=== PATIENT | female | born 1955 | race Caucasian/White ===

== ENCOUNTER → 2017-11-10 | Outpatient (CLI) | payer OTHER ==
[2017-11-10 11:17] LABS: BLOOD UREA NITROGEN 18 mg/dl (7-18); CALCIUM 8.9 mg/dl (8.5-10.1); CARBON DIOXIDE 27 mmol/L (21-32); CREATININE 0.88 mg/dl (0.60-1.20); GLUCOSE 77 mg/dl (70-99); POTASSIUM 3.9 mmol/L (3.5-5.1); SODIUM 142 mmol/L (136-145)
== END ==
LOC: C.LABUPNIT 07:52
PROVIDERS: ATTEND Nurse Practitioner Family
DX: E08.8 Diabetes mellitus due to underlying condition with unspecified complications (principal)

== ENCOUNTER 2022-05-07 10:48 | Inpatient (IN) ==
[2022-05-07] MEDS ORDERED: VANCOMYCIN CONSULT ACTIVE PRN (11:01)
[2022-05-07] MEDS ORDERED: VANCOMYCIN HCL 2,500 MG in SODIUM CHLORIDE 0.9% 500 ML IV STA (11:01)
[2022-05-07] MEDS ORDERED: CEFEPIME 2,000 MG/20 ML VIAL IV STA (11:01)
[2022-05-07] MEDS ORDERED: SODIUM BICARB 8.4% INJ 50 MEQ/50 ML SYR IV STA (11:08)
[2022-05-07] MEDS ORDERED: NovoLIN-R INSULIN PER UNIT CHARGE IV STA (11:08)
[2022-05-07] MEDS ORDERED: DEXTROSE 50% 50 ML SYRINGE IV ONE (11:08)
[2022-05-07] MEDS ORDERED: ALBUT/IPRATROP 3MG/0.5MG NEB 3 ML VIAL NEB STA (11:08)
[2022-05-07] MEDS ORDERED: SODIUM CHLORIDE 0.9% 1000ML 1,000 ML IV SCH (11:15)
[2022-05-07 11:17] LABS: iSTAT Creatinine 3.1 mg/dl (0.6-1.3); iSTAT Hemoglobin 20.7 g/dl (12.0-16.0); iSTAT Ionized Calcium 1.06 mmol/l (1.12-1.32); iSTAT Potassium 8.4 mmol/L (3.3-5.0)
--- NOTE | 2022-05-07 11:38 | Emergency Department Note ---
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 (Dextrose 50% 50 Ml Syringe) 50 ml IV NOW ONE Stop: 05/07/22 11:09 Last Admin: 05/07/22 11:57 Dose: 50 ml Documented By: FATUMA Sodium Chloride (Nss 1000ml) 1,000 mls @ 999 mls/hr IV .Q1H1M AIDA Stop: 05/07/22 12:15 Last Infusion: 05/07/22 12:18 Dose: 0 mls/hr Documented By: Admin: 05/07/22 11:15 Dose: 999 mls/hr Documented By: HG Sodium Chloride (Nss 1000ml) 1,000 mls @ 999 mls/hr IV .Q1H1M AIDA Stop: 05/07/22 13:15 Last Infusion: 05/07/22 13:14 Dose: 0 mls/hr Documented By: Admin: 05/07/22 12:18 Dose: 999 mls/hr Documented By: Infusion: 05/07/22 12:18 Dose: 999 mls/hr Documented By: Admin: 05/07/22 11:55 Dose: 999 mls/hr Documented By: HG Cefepime HCl (Maxipime) 2,000 mg in 20 mls @ 5 mls/min IV NOW STA; Protocol Stop: 05/07/22 11:04 Last Admin: 05/07/22 11:55 Dose: 5 mls/min Documented By: HG Vancomycin HCl 2,500 mg/ (Sodium Chloride) 550 mls @ 200 mls/hr IV NOW STA Stop: 05/07/22 13:30 Last Admin: 05/07/22 12:01 Dose: 200 mls/hr Documented By: FATUMA Calcium Gluconate () 1,000 mg in 60 mls @ 240 mls/hr IV Q15M [facility] Stop: 05/07/22 11:44 Last Infusion: 05/07/22 13:04 Dose: 0 mls/hr Documented By: Admin: 05/07/22 12:06 Dose: 240 mls/hr Documented By: Infusion: 05/07/22 12:06 Dose: 240 mls/hr Documented By: Admin: 05/07/22 11:54 Dose: 240 mls/hr Documented By: HG Acetaminophen (Ofirmev) 1,000 mg in 100 mls @ 400 mls/hr IV NOW STA Stop: 05/07/22 13:10 Last Infusion: 05/07/22 13:19 Dose: 0 mls/hr Documented By: Admin: 05/07/22 13:04 Dose: 400 mls/hr Documented By: DINORAH Insulin Human Regular (Novolin-R Insulin Per Unit Charge) 10 units IV NOW STA Stop: 05/07/22 11:09 Last Admin: 05/07/22 12:01 Dose: 10 units Documented By: FATUMA Co-signed By: DINORAH Norepinephrine Bitartrate (Norepinephrine/D5w 4 Mg/250 Ml) Confirm Administered Dose 4 mg IV .STK-MED ONE Stop: 05/07/22 13:08 Last Admin: 05/07/22 13:12 Dose: Not Given Documented By: FATUMA Sodium Bicarbonate (Sodium Bicarb 8.4% Inj 50 Meq/50 Ml Syr) 50 meq IV NOW STA Stop: 05/07/22 11:09 Last Admin: 05/07/22 11:54 Dose: 50 meq Documented By: FATUMA Imaging Data Radiologist's Impression: Chest X-Ray 05/07/22 11:01 XR chest 1V portable CLINICAL HISTORY: Sepsis. COMPARISON STUDY: No previous studies for comparison. FINDINGS: Tip of right internal jugular central venous catheter projects over the right atrium. Lung volumes are diminished. Vascular crowding is noted hypoventilatory study. Note is made of cardiomegaly. Gaseous distention of the stomach is noted. IMPRESSION: 1. No pneumothorax. Tip of right internal jugular central venous catheter projects over the right atrium. 2. Low lung volumes with left basilar opacity which could reflect atelectasis or consolidation. Radiographic follow up is recommended. 3. Gaseous distention of the stomach. ACT 112: Negative or not required by law. Electronically signed by: Mars Coles M.D. 05/07/2022 12:59 PM Discharge Plan Visit Data Chief Complaint: Altered Mental Status Stated Complaint: AMS ED Provider: [facility] Discharge Problem: AMS (altered mental status), Nausea vomiting and diarrhea, SOPHIE (acute kidney injury), Hyperkalemia Forms Stand Alone Forms: [facility] [employer] Prescriptions Prescriptions: No Action amantadine HCl 100 mg Tablet 100 mg PO BID atorvastatin 40 mg Tablet 60 mg PO HS acetaminophen 325 mg Tablet 650 mg PO Q6H PRN (Reason: Pain) aripiprazole [Abilify] 10 mg Tablet 5 mg PO QAM Saccharomyces boulardii [Florastor] 250 mg Capsule 250 mg PO BID hydrocodone-acetaminophen 5-325 mg Tablet 1 tab PO Q12 PRN (Reason: Pain) magnesium hydroxide [Milk of Magnesia] 400 mg/5 mL Suspension 30 ml PO DAILY PRN (Reason: Constipation) docusate sodium 100 mg Capsule 100 mg PO DAILY duloxetine 60 mg Capsule,Delayed Release(Dr/Ec) 60 mg PO DAILY levothyroxine 25 mcg Tablet 25 mcg PO DAILY sertraline 100 mg Tablet 100 mg PO DAILY trazodone 50 mg Tablet 50 mg PO HS ergocalciferol (vitamin D2) 50,000 unit Tablet 50,000 unit PO Q7D lorazepam 0.5 mg Tablet 0.5 mg PO BID potassium chloride 20 mEq Tablet Extended Release 20 meq PO BID gabapentin 100 mg Capsule 100 mg PO TID bisacodyl 10 mg Suppository 10 mg SD DAILY PRN (Reason: Constipation) sodium phosphates 19-7 gram/118 mL Enema 118 ml SD DAILY PRN (Reason: Constipation) ondansetron 4 mg Tablet,Disintegrating 4 mg PO Q6H PRN (Reason: Nausea And Vomiting) Referrals Referrals: [facility] [Primary Care Provider] - Procedures ABG Interpretation ABG Interpretation 1: ABG Results: Interpretation: metabolic acidosis Central Line Placement Right IJ: Time Out Performed: Yes Patient Placed on Monitor/Pulse Ox: Yes MD Prep: mask, gown and gloves Central Line Prep: Chlorhexidine scrub Local Anesthetic: lidocaine 1% Amount of anesthesia used (mL): 5 Ultrasound Used for Placement: Yes Central Line Lumen Inserted: triple Post Procedure: sutured in place, good blood return, all ports aspirated, flushed, capped and sterile dressing applied Post Procedure X-Ray: tip of catheter in good position and no pneumothorax seen Patient Tolerated Procedure: well and no complications Complications: none
[2022-05-07] MEDS: CALCIUM GLUCONATE 1,000 MG/60 ML BAG IV SCH ×2 (11:54→12:06)
[2022-05-07] MEDS: SODIUM CHLORIDE 0.9% 1000ML 1,000 ML IV SCH ×2 (11:55→12:18)
[2022-05-07 12:16] LABS: HCO3 ABG 14 mmol/L (19-24); Oxygen Saturation ABG 97.3 % (90-95); PCO2 ABG 23 mmHg (35-46); PO2 ABG 86 mmHg (80-95); pH ABG 7.39 (7.35-7.45)
[2022-05-07 12:27] LABS: Allen Test Pos (Pos)
[2022-05-07 12:27] LABS: Hematocrit (blood only) 50.7 % (37.0-47.0); Hemoglobin 17.2 g/dl (12.0-16.0); Mean Corpuscular Hemoglobin 30.6 pg (25.0-34.0); Mean Corpuscular Hgb Conc 33.9 g/dL (32.0-36.0); Mean Corpuscular Volume 90.1 fL (80.0-100.0); Mean Platelet Volume 11.6 fL (9.4-12.4); Platelet Count 266 K/uL (130-400); RDW Coefficient of Variation 14.3 % (11.5-14.5); RDW Standard Deviation 47.6 fL (36.4-46.3); Red Blood Count 5.63 M/uL (4.20-5.40); White Blood Count 9.33 K/ul (4.8-10.8)
[2022-05-07 12:48] LABS: Basophils # (auto) 0.03 K/uL (0-0.2); Basophils % (auto) 0.3 %; Eosinophils # (auto) 0.01 K/uL (0-0.50); Eosinophils % (auto) 0.1 %; Immature Granulocytes # (auto) 0.04 K/uL (0.01-0.20); Immature Granulocytes % (auto) 0.4 %; Lymphocytes # (auto) 1.05 K/uL (1.2-3.4); Lymphocytes % (auto) 11.3 %; Monocytes # (auto) 1.79 K/uL (0.11-0.59); Monocytes % (auto) 19.2 %; Neutrophils # (auto) 6.41 K/uL (1.40-6.50); Neutrophils % (auto) 68.7 %
[2022-05-07 12:55] LABS: Albumin Level 3.9 gm/dl (3.4-5.0); Bilirubin Direct 0.1 mg/dl (0-0.2); Bilirubin,Total 0.6 mg/dl (0.2-1.0); Magnesium 1.7 mg/dl (1.7-2.4); Potassium 3.6 mmol/L (3.5-5.1)
[2022-05-07] MEDS ORDERED: ACETAMINOPHEN 1,000 MG/100 ML VIAL IV STA (12:56)
--- NOTE | 2022-05-07 13:00 | XRay Report ---
XR chest 1V portable CLINICAL HISTORY: Sepsis. COMPARISON STUDY: No previous studies for comparison. FINDINGS: Tip of right internal jugular central venous catheter projects over the right atrium. Lung volumes are diminished. Vascular crowding is noted hypoventilatory study. Note is made of cardiomegal y. Gaseous distention of the stomach is noted. IMPRESSION: 1. No pneumothorax. Tip of right internal jugular central venous catheter projects over the right atr ium. 2. Low lung volumes with left basilar opacity which could reflect atelectasis or consolidation. Radio graphic follow up is recommended. 3. Gaseous distention of the stomach. ACT 112: Negative or not required by law. Electronically signed by: Mars Coles M.D. 05/07/2022 12:59 PM
[2022-05-07 13:01] LABS: BUN Creatinine Ratio 11.2 (10-20); Creatinine Clr Calc Pharmacy 21.1 ml/min; Est GFR (African American) 16.7 ml/min; Est GFR (Non-African American) 14.4 ml/min; Total Protein 7.1 gm/dl (6.0-8.3)
[2022-05-07] MEDS ORDERED: NOREPINEPHRINE/D5W 4 MG/250 ML IV ONE (13:07)
[2022-05-07] MEDS ORDERED: STAT IV Infusion **Titration per Protocol STA (13:07)
[2022-05-07] MEDS: NOREPINEPHRINE/D5W 4 MG/250 ML PLCT IV SCH (13:12)
[2022-05-07 13:17] LABS: iSTAT Creatinine 2.7 mg/dl (0.6-1.3); iSTAT Ionized Calcium 1.17 mmol/l (1.12-1.32); iSTAT Potassium 3.2 mmol/L (3.3-5.0)
[2022-05-07 13:37] LABS: Adenovirus PCR Not Detected (NotDetected); Bordetella parapertussis PCR Not Detected (NotDetected); Bordetella pertussis PCR Not Detected (NotDetected); Chlamydia pneumoniae PCR Not Detected (NotDetected); Coronavirus 229E PCR Not Detected (NotDetected); Coronavirus HKU1 PCR Not Detected (NotDetected); Coronavirus NL63 PCR Not Detected (NotDetected); Coronavirus OC43PCR Not Detected (NotDetected); Human Metapneumovirus PCR Not Detected (NotDetected); Influenza A PCR Not Detected (NotDetected); Influenza B PCR Not Detected (NotDetected); Mycoplasma pneumoniae PCR Not Detected (NotDetected); Parainfluenza Virus 1 PCR Not Detected (NotDetected); Parainfluenza Virus 2 PCR Not Detected (NotDetected); Parainfluenza Virus 3 PCR Not Detected (NotDetected); Parainfluenza Virus 4 PCR Not Detected (NotDetected); Respiratory Syncytial VirusPCR Not Detected (NotDetected); Rhinovirus/Enterovirus PCR Not Detected (NotDetected)
[2022-05-07 13:42] LABS: Coronavirus CoV-2 (COVID19)PCR DETECTED (NotDetected)
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
[2022-05-07] MEDS ORDERED: NORMOSOL-R 1,000 ML IV ONE ×2 (14:39→19:04)
--- NOTE | 2022-05-07 15:13 | Critical Care Consultation ---
Date of Consultation May 07, 2022 Assessment & Plan (1) Dehydration, severe: Reason Critically Ill: 67-year-old female with history of traumatic brain injury who presents with concerns for sepsis/septic shock and COVID-19 infection PLAN: Neuro: History traumatic brain injury -Continue amantadine 100 mg twice daily, Abilify 5 mg every morning, duloxetine 60 mg daily, gabapentin 100 mg 3 times daily, Strattera lean 100 mg daily Resp: COVID-19 infection -Wean supplemental oxygen as required CV: Tachycardia, hypotension, severe volume depletion -Severe dehydration secondary to nausea vomiting and diarrhea Fluids/Renal: Acute kidney injury -Normosol at 100 mL/h -Repeat labs pending, insert Gerardo to measure urine output ID: Broad-spectrum antibiotics started in emergency department -Blood cultures have been obtained, urine culture has not been obtained at this time -Vancomycin consult ordered, given cefepime in emergency department. -This appears to be related to volume loss secondary to gastroenteritis, lactic acidosis significantly improving gastroenteritis can be secondary to COVID-19 as well GI/Nutrition: Hyperlipidemia -Atorvastatin 60 mg nightly High-grade small bowel obstruction with transition point -NG tube decompression will consult general surgery -Son denies abdominal surgical history. Heme: Hemoconcentration History of DVT recorded in prior records, no anticoagulation medications noted on home meds DVT prophylaxis: DVT prophylaxis with heparin 5000 thrice daily Endocrine: ICU hyperglycemia protocol Presumed hypothyroidism secondary to Home medication list -Continue levothyroxine 25 mcg daily Vascular access: Right internal jugular placed in emergency department Code Status: Full code -Discussed wishes with patient's son:Sukhjinder Davis via telephone Disposition: ICU (2) SOPHIE (acute kidney injury): (3) Traumatic brain injury: (4) Diabetes mellitus: (5) COVID-19 virus infection: (6) Septic shock: Supervising Physician Co-Signing Physician Notes I have personally spent 60 minutes of critical care time in the direct management of this patient. This is a life/limb threatening event. This includes time spent evaluating patient, direct bedside care, chart review, placing orders, interpretation of diagnostic studies, discussion with consultants, patient, and/or family members regarding treatment decisions, as well as other required patient management activities. This time is exclusive of all separately billable procedures, and teaching time and separate from and in addition to any other critical care service time. History of Present Illness Reason for Consultation: Concern for septic shock with multisystem organ failure Attending Physician: Mary Kate Hamilton, History of Present Illness History is largely obtained from prior records and bedside providers secondary to cognitive deficits secondary to prior traumatic brain injury. Patient resides in a nursing care facility. Patient was reportedly having, nausea vomiting diarrhea for the past several days at her nursing facility and was found to have altered mental status this morning. She was transported to [facility] emergency department where the patient's initial presentation was concerning for shock and hyperkalemia. She has been volume expanded with 3 L of normal saline and started on norepinephrine and initial laboratory results were obtained. She had an elevated lactic acidosis which has subsequently decreased from 4-2.5. During my evaluation we attempted to discontinue the vasoactive medication however she became hypotensive again and had decreased awareness so the vasoactive's were continued albeit at a lower rate. We will also give additional IV fluid at this time. During my evaluation patient was oriented to self, largely is able to answer with yes or no questions and she was not able to expand on descriptions. She denied chest pain shortness of breath admitted to nausea and vomiting was not able to quantify the vomiting. She denied abdominal pain however she has a tympanic exam. Nursing staff she reported that the patient had passed loose stools earlier Allergies Allergy/AdvReac Type Severity Reaction Status Date / Time aspirin Allergy Severe Unknown Verified 07/09/20 13:38 Home Medications Medication Instructions Recorded Confirmed Type Saccharomyces boulardii 250 mg 250 mg PO BID 07/03/20 05/07/22 History capsule (Florastor) acetaminophen 325 mg tablet 650 mg PO Q6H PRN Pain 07/03/20 05/07/22 History amantadine HCl 100 mg tablet 100 mg PO BID 07/03/20 05/07/22 History aripiprazole 10 mg tablet (Abilify) 5 mg PO QAM 07/03/20 05/07/22 History atorvastatin 40 mg tablet 60 mg PO HS 07/03/20 05/07/22 History hydrocodone 5 mg-acetaminophen 325 1 tab PO Q12 PRN Pain 07/03/20 05/07/22 History mg tablet magnesium hydroxide 400 mg/5 mL 30 ml PO DAILY PRN Constipation 07/03/20 05/07/22 History oral suspension (Milk of Magnesia) bisacodyl 10 mg rectal suppository 10 mg DC DAILY PRN Constipation 05/07/22 05/07/22 History docusate sodium 100 mg capsule 100 mg PO DAILY 05/07/22 05/07/22 History duloxetine 60 mg capsule,delayed 60 mg PO DAILY 05/07/22 05/07/22 History release ergocalciferol (vitamin D2) 50,000 50,000 unit PO Q7D 05/07/22 05/07/22 History unit tablet gabapentin 100 mg capsule 100 mg PO TID 05/07/22 05/07/22 History levothyroxine 25 mcg tablet 25 mcg PO DAILY 05/07/22 05/07/22 History lorazepam 0.5 mg tablet 0.5 mg PO BID 05/07/22 05/07/22 History ondansetron 4 mg disintegrating 4 mg PO Q6H PRN Nausea And Vomiting 05/07/22 05/07/22 History tablet potassium chloride 20 mEq 20 meq PO BID 05/07/22 05/07/22 History tablet,extended release sertraline 100 mg tablet 100 mg PO DAILY 05/07/22 05/07/22 History sodium phosphates 19 gram-7 118 ml DC DAILY PRN Constipation 05/07/22 05/07/22 History gram/118 mL enema trazodone 50 mg tablet 50 mg PO HS 05/07/22 05/07/22 History Patient History Medical History Constipation Dermatitis Diabetes mellitus DVT (deep venous thrombosis) unspecified lower extremity 2018 Generalized anxiety disorder Hyperlipemia Hypertension Insomnia Intermittent explosive disorder Morbid obesity Psychosis Traumatic brain injury Surgical History No history of previous surgery Social History Smoking Status: Unknown if ever smoked Preferred Language: Chinese Current Living Situation: Personal Care Facility Current Living Situation Comment: [facility] resident Feels Safe at Home: Yes Review of Systems Review of Systems: Unable to obtain secondary to cognitive status Physical Exam Physical Exam: General: Alert. Answering questions appropriately Skin: Warm, dry, capillary refill less than 3 seconds Head: Atraumatic Ears, nose, mouth and throat: airway patent Cardiovascular: Normal peripheral perfusion Respiratory: no respiratory distress Gastrointestinal: Mild distention, mild tympany, no abdominal pain with palpation, no guarding no rebound, negative Rosvigs. Negative [place] Musculoskeletal: No deformity Results & Data Results & Data ([facility]) Vital Signs (Past 12 Hours) Vital Signs Temp Pulse Resp BP Pulse Ox O2 Del Method O2 Flow Rate 05/07/22 14:35 125 H 25 H 96 Nasal Cannula 2 05/07/22 14:35 114/77 05/07/22 14:30 126 H 24 95 Nasal Cannula 2 05/07/22 14:30 114/71 05/07/22 14:25 125 H 22 95 Nasal Cannula 2 05/07/22 14:25 125/70 05/07/22 14:20 124 H 28 H 95 Nasal Cannula 2 05/07/22 14:20 126/78 05/07/22 14:15 127 H 20 95 Nasal Cannula 2 05/07/22 14:15 130/71 05/07/22 14:10 128 H 30 H 95 Nasal Cannula 2 05/07/22 14:10 107/73 05/07/22 14:05 125 H 30 H 95 Nasal Cannula 2 05/07/22 14:05 127/71 05/07/22 14:00 126 H 17 93 Nasal Cannula 2 05/07/22 14:00 127/77 05/07/22 13:55 127 H 22 94 Nasal Cannula 2 05/07/22 13:55 119/79 05/07/22 13:50 126 H 28 H 94 Nasal Cannula 2 05/07/22 13:50 127/74 05/07/22 13:45 126 H 27 H 94 Nasal Cannula 2 05/07/22 13:45 118/90 05/07/22 13:40 125 H 21 93 Nasal Cannula 2 05/07/22 13:40 120/64 05/07/22 13:46 37.0 C 05/07/22 13:35 122 H 30 H 93 Nasal Cannula 2 05/07/22 13:35 113/63 05/07/22 13:30 121 H 32 H 95 Nasal Cannula 2 05/07/22 13:30 112/62 05/07/22 13:25 121 H 28 H 94 Nasal Cannula 2 05/07/22 13:25 100/60 05/07/22 13:20 119 H 29 H 93 Nasal Cannula 2 05/07/22 13:20 96/60 L 05/07/22 13:20 96/60 L 05/07/22 13:18 117 H 26 H 92 Nasal Cannula 2 05/07/22 13:17 116 H 30 H 92 Nasal Cannula 2 05/07/22 13:17 98/60 L 05/07/22 13:16 115 H 30 H 93 Nasal Cannula 2 05/07/22 13:14 115 H 47 H 94 Nasal Cannula 2 05/07/22 13:14 78/55 L 05/07/22 13:10 116 H 31 H 93 Nasal Cannula 2 05/07/22 13:10 83/53 L 05/07/22 13:05 117 H 35 H 94 Nasal Cannula 2 05/07/22 13:00 117 H 31 H 92 Nasal Cannula 2 05/07/22 13:00 82/56 L 05/07/22 12:55 116 H 30 H 92 Nasal Cannula 2 05/07/22 12:50 100 H 35 H 96 Nasal Cannula 2 05/07/22 12:50 94/59 L 05/07/22 12:45 99 H 31 H 95 Nasal Cannula 2 05/07/22 12:40 112 H 30 H 94 Nasal Cannula 2 05/07/22 12:40 111/65 05/07/22 12:30 114 H 34 H 97 Nasal Cannula 2 05/07/22 12:30 123/63 05/07/22 12:20 112 H 34 H 98 Nasal Cannula 2 05/07/22 12:20 111/62 05/07/22 12:10 113 H 33 H 95 Nasal Cannula 2 05/07/22 12:10 131/60 05/07/22 12:01 117 H 34 H 95 Nasal Cannula 2 05/07/22 11:50 126 H 36 H 95 Nasal Cannula 2 05/07/22 11:50 95/64 L 05/07/22 11:44 128 H 33 H 94 Nasal Cannula 2 05/07/22 11:44 84/59 L 05/07/22 11:40 127 H 37 H 05/07/22 11:40 87/66 L 05/07/22 11:32 131 H 25 H 05/07/22 11:32 118/64 05/07/22 11:30 127 H 33 H 05/07/22 11:20 132 H 41 H 05/07/22 11:14 138 H 92 Nasal Cannula 2 05/07/22 11:14 106/46 L 05/07/22 11:10 137 H 90 Nasal Cannula 2 05/07/22 10:47 40 C H 141 H 41 H 106/46 L 94 Nasal Cannula 2 Critical Care Results & Data Vital Signs (Past 12 Hours) Vital Signs Temp Pulse Resp BP Pulse Ox O2 Del Method O2 Flow Rate 05/07/22 14:35 125 H 25 H 96 Nasal Cannula 2 05/07/22 14:35 114/77 05/07/22 14:30 126 H 24 95 Nasal Cannula 2 05/07/22 14:30 114/71 05/07/22 14:25 125 H 22 95 Nasal Cannula 2 05/07/22 14:25 125/70 05/07/22 14:20 124 H 28 H 95 Nasal Cannula 2 05/07/22 14:20 126/78 05/07/22 14:15 127 H 20 95 Nasal Cannula 2 05/07/22 14:15 130/71 05/07/22 14:10 128 H 30 H 95 Nasal Cannula 2 05/07/22 14:10 107/73 05/07/22 14:05 125 H 30 H 95 Nasal Cannula 2 05/07/22 14:05 127/71 05/07/22 14:00 126 H 17 93 Nasal Cannula 2 05/07/22 14:00 127/77 05/07/22 13:55 127 H 22 94 Nasal Cannula 2 05/07/22 13:55 119/79 05/07/22 13:50 126 H 28 H 94 Nasal Cannula 2 05/07/22 13:50 127/74 05/07/22 13:45 126 H 27 H 94 Nasal Cannula 2 05/07/22 13:45 118/90 05/07/22 13:40 125 H 21 93 Nasal Cannula 2 05/07/22 13:40 120/64 05/07/22 13:46 37.0 C 05/07/22 13:35 122 H 30 H 93 Nasal Cannula 2 05/07/22 13:35 113/63 05/07/22 13:30 121 H 32 H 95 Nasal Cannula 2 05/07/22 13:30 112/62 05/07/22 13:25 121 H 28 H 94 Nasal Cannula 2 05/07/22 13:25 100/60 05/07/22 13:20 119 H 29 H 93 Nasal Cannula 2 05/07/22 13:20 96/60 L 05/07/22 13:20 96/60 L 05/07/22 13:18 117 H 26 H 92 Nasal Cannula 2 05/07/22 13:17 116 H 30 H 92 Nasal Cannula 2 05/07/22 13:17 98/60 L 05/07/22 13:16 115 H 30 H 93 Nasal Cannula 2 05/07/22 13:14 115 H 47 H 94 Nasal Cannula 2 05/07/22 13:14 78/55 L 05/07/22 13:10 116 H 31 H 93 Nasal Cannula 2 05/07/22 13:10 83/53 L 05/07/22 13:05 117 H 35 H 94 Nasal Cannula 2 05/07/22 13:00 117 H 31 H 92 Nasal Cannula 2 05/07/22 13:00 82/56 L 05/07/22 12:55 116 H 30 H 92 Nasal Cannula 2 05/07/22 12:50 100 H 35 H 96 Nasal Cannula 2 05/07/22 12:50 94/59 L 05/07/22 12:45 99 H 31 H 95 Nasal Cannula 2 05/07/22 12:40 112 H 30 H 94 Nasal Cannula 2 05/07/22 12:40 111/65 05/07/22 12:30 114 H 34 H 97 Nasal Cannula 2 05/07/22 12:30 123/63 05/07/22 12:20 112 H 34 H 98 Nasal Cannula 2 05/07/22 12:20 111/62 05/07/22 12:10 113 H 33 H 95 Nasal Cannula 2 05/07/22 12:10 131/60 05/07/22 12:01 117 H 34 H 95 Nasal Cannula 2 05/07/22 11:50 126 H 36 H 95 Nasal Cannula 2 05/07/22 11:50 95/64 L 05/07/22 11:44 128 H 33 H 94 Nasal Cannula 2 05/07/22 11:44 84/59 L 05/07/22 11:40 127 H 37 H 05/07/22 11:40 87/66 L 05/07/22 11:32 131 H 25 H 05/07/22 11:32 118/64 05/07/22 11:30 127 H 33 H 05/07/22 11:20 132 H 41 H 05/07/22 11:14 138 H 92 Nasal Cannula 2 05/07/22 11:14 106/46 L 05/07/22 11:10 137 H 90 Nasal Cannula 2 05/07/22 10:47 40 C H 141 H 41 H 106/46 L 94 Nasal Cannula 2 Lab & Micro Results (Past 24 Hours) RBC 5.63 M/uL (4.20-5.40) H 05/07/22 WBC 9.33 K/ul (4.8-10.8) 05/07/22 Hgb 17.2 g/dl (12.0-16.0) H 05/07/22 Hct 50.7 % (37.0-47.0) H 05/07/22 MCV 90.1 fL (80.0-100.0) 05/07/22 MCH 30.6 pg (25.0-34.0) 05/07/22 MCHC 33.9 g/dL (32.0-36.0) 05/07/22 RDW Standard Deviation 47.6 fL (36.4-46.3) H 05/07/22 RDW Coefficient of Variation 14.3 % (11.5-14.5) 05/07/22 Plt Count 266 K/uL (130-400) 05/07/22 MPV 11.6 fL (9.4-12.4) 05/07/22 Neutrophils (%) (Auto) 68.7 % 05/07/22 Lymphocytes (%) (Auto) 11.3 % 05/07/22 Monocytes # (Auto) 1.79 K/uL (0.11-0.59) H 05/07/22 Eosinophils # (Auto) 0.01 K/uL (0-0.50) 05/07/22 Immature Granulocyte % (Auto) 0.4 % 05/07/22 Neutrophils # (Auto) 6.41 K/uL (1.40-6.50) 05/07/22 Lymphocytes # (Auto) 1.05 K/uL (1.2-3.4) L 05/07/22 Monocytes # (Auto) 1.79 K/uL (0.11-0.59) H 05/07/22 Eosinophils # (Auto) 0.01 K/uL (0-0.50) 05/07/22 Basophils # (Auto) 0.03 K/uL (0-0.2) 05/07/22 Immature Granulocyte # (Auto) 0.04 K/uL (0.01-0.20) 3 Na 140 mmol/L (136-145) 05/07/22 K 3.6 mmol/L (3.5-5.1) 05/07/22 Cl 106 mmol/L (98-107) 05/07/22 CO2 17 mmol/L (21-32) L 05/07/22 Anion Gap 17 (3-11) H 05/07/22 BUN 36 mg/dl (6-23) H 05/07/22 Creatinine 3.22 mg/dl (0.6-1.2) H 05/07/22 Estimated GFR ( Amer) 16.7 ml/min 05/07/22 Estimated GFR (Non-Af Amer) 14.4 ml/min 05/07/22 BUN/Creatinine Ratio 11.2 (10-20) 05/07/22 Glu 170 mg/dl (70-99(Fasting)) H 05/07/22 Ca 9.0 mg/dl (8.5-10.1) 05/07/22 Total Bilirubin 0.6 mg/dl (0.2-1.0) 05/07/22 Direct Bilirubin 0.1 mg/dl (0-0.2) 05/07/22 AST 39 U/L (13-39) 05/07/22 ALT 24 U/L (7-52) 05/07/22 Alkaline Phosphatase 74 U/L (34-104) 05/07/22 TP 7.1 gm/dl (6.0-8.3) 05/07/22 Albumin 3.9 gm/dl (3.4-5.0) 05/07/22 Mg 1.7 mg/dl (1.7-2.4) 05/07/22 11:40 Calcium Level 9.0 mg/dl (8.5-10.1) 05/07/22 11:40 Arterial Blood pH 7.39 (7.35-7.45) 05/07/22 11:52 Arterial Blood Partial Pressure CO2 23 mmHg (35-46) L 05/07/22 11:52 Arterial Blood Partial Pressure O2 86 mmHg (80-95) 05/07/22 11: 52 Arterial Blood HCO3 14 mmol/L (19-24) L 05/07/22 11:52 Arterial Blood Base Excess -9.0 mEq/L (-9-1.8) 05/07/22 11:52 Arterial Blood Oxygen Saturation 97.3 % (90-95) H 05/07/22 11:5 2 Blood Gas Oxygen Given 2L 05/07/22 11:52 Rai Test Pos (Pos) 05/07/22 11:52 Diagnostic Findings (Past 24 Hours) Chest X-Ray 05/07/22 11:01 XR chest 1V portable CLINICAL HISTORY: Sepsis. COMPARISON STUDY: No previous studies for comparison. FINDINGS: Tip of right internal jugular central venous catheter projects over t he right atrium. Lung volumes are diminished. Vascular crowding is noted hypoventilatory study. Note is made of cardiomegaly. Gaseous distention of the stomach is noted. IMPRESSION: 1. No pneumothorax. Tip of right internal jugular central venous catheter projects over the right atrium. 2. Low lung volumes with left basilar opacity which could reflect atelectasis or consolidation. Radiographic follow up is recommended. 3. Gaseous distention of the stomach. ACT 112: Negative or not required by law. Electronically signed by: Mars Coles M.D. 05/07/2022 12:59 PM I & O Totals 24 Hours 05/06/22 05/07/22 05/08/22 06:59 06:59 06:59 Intake Total 2620.65 / 2620.65 Balance 2620.65 / 2620.65 Cumulative 05/07/22 10:24 thru 05/07/22 14:51 Intake Total 2620.65 Balance 2620.65 RT Ventilator Mngmt (Last Documented) Ventilator Ordered Settings Respiratory Rate 25 05/07/22 14:35 Ventilator - PT Measurements Respiratory Rate 25 Coding Level of Care Code Critical Care 1st 30-74 mins Diagnoses Dehydration, severe E86.0 SOPHIE (acute kidney injury) N17.9 Traumatic brain injury S06.9X9A Diabetes mellitus E11.9 COVID-19 virus infection U07.1 Septic shock A41.9; R65.21
--- NOTE | 2022-05-07 15:30 | CT Scan Report ---
CT SCAN OF THE ABDOMEN AND PELVIS WITHOUT IV CONTRAST CLINICAL HISTORY: Fever. Change in mental status. COMPARISON STUDY: No priors. TECHNIQUE: CT scan of the abdomen and pelvis is performed from the lung bases to the proximal femora. Images are reviewed in the axial, sagittal, and coronal planes. IV contrast was not administered for this examination. Note that the examination was performed in suboptimal fashion without oral and IV contrast. A dose lowering technique was utilized adhering to the principles of ALARA. CT DOSE: 3538.27 mGy.cm FINDINGS: Lung bases: The tip of a central venous catheter terminates at the cavoatrial junction. The heart is normal in size and without pericardial effusion. Airspace consolidation is seen at both lung bases wi th trace pleural effusions. Liver: The unenhanced liver is normal in size, contour, and attenuation. There is no intrahepatic lnaa iary ductal dilatation. Gallbladder: Surgically absent noting clips in the gallbladder fossa. Spleen: Normal in size and attenuation. Pancreas: The unenhanced pancreas is atrophic and grossly unremarkable. Adrenal glands: Unremarkable. Kidneys: The unenhanced kidneys demonstrate cortical atrophy and are without hydronephrosis. There ar e no renal calculi identified. There is no evidence of contour deforming renal mass lesion. Abdominal vasculature: The abdominal aorta is normal in course and caliber noting mild atheroscleroti c calcification. An infrarenal IVC filter is in place the inferior vena cava is largely decompressed. Bowel: The stomach and proximal small bowel loops are markedly distended and fluid-filled. Small edi l loops measure up to 4.5 cm in diameter. A transition point is seen in the right lower quadrant on i mage #[id number]. The distal small bowel and colon are decompressed, and the appearance is consistent with a high-grade small bowel obstruction. No focally thick-walled bowel loops are identified. There is tra ce interloop fluid. No pneumatosis intestinalis or portal venous gas is seen. The appendix is well-v isualized and normal. Peritoneum: There is no intraperitoneal free air or abdominal ascites. Lymphadenopathy: None. Pelvic viscera: The bladder is decompressed and not evaluated. The uterus and adnexa are normal as vi sualized. Skeletal structures: The skeletal structures are osteopenic. There is moderate lumbosacral spondylosi s. No lytic or blastic lesions are seen. Extensive bony overgrowth is seen around the hips and bony p jonah. IMPRESSION: 1. High-grade small bowel obstruction. A transition point is seen in the right lower quadrant and thi s is likely on the basis of adhesions. 2. Interloop fluid is noted. 3. No intraperitoneal free air is identified. No focally thick-walled bowel loops are identified. The re is no pneumatosis intestinalis or portal venous gas. 4. Airspace consolidation is seen at both lung bases with trace pleural effusions. Correlate clinical ly for evidence of pneumonia/aspiration pneumonitis. 5. Additional findings as above. ACT 112: Negative or not required by law. Electronically signed by: Wilmar Stanford M.D. 05/07/2022 3:29 PM
--- NOTE | 2022-05-07 15:32 | CT Scan Report ---
HEAD CT NONCONTRAST CT DOSE: HISTORY: Confusion. Altered mental status, fever TECHNIQUE: Multiaxial CT images of the head were performed without the use of intravenous contrast. A utomated exposure control was utilized for this study. A dose lowering technique was utilized adheri ng to the principles of ALARA. Comparison: None. Findings: The paranasal sinuses and mastoid air cells are clear. Bifrontal craniotomy/craniectomy are noted. There is significant encephalomalacia within the bilateral frontal lobes with ex vacuo dilata tion of the frontal horns of the lateral ventricles. There is also small areas of encephalomalacia wi thin the bilateral anterior temporal lobes. Mild motion artifact. No definite mass, hematoma, midline shift, or acute infarct. Impression: 1. Motion artifact. No definite acute intracranial abnormality. 2. Prior bifrontal craniotomies/craniectomies with encephalomalacia the underlying frontal lobes and ex vacuo dilatation of the frontal horns of the lateral ventricles. This appears to be chronic. ACT 112: Negative or not required by law. Electronically signed by: Shade Berman M.D. 05/07/2022 3:31 PM
--- NOTE | 2022-05-07 15:39 | Electrocardiogram Report ---
Test Reason : Blood Pressure : / mmHG Vent. Rate : 127 BPM Atrial Rate : 127 BPM P-R Int : 168 ms QRS Dur : 074 ms QT Int : 290 ms P-R-T Axes : 030 019 061 degrees QTc Int : 421 ms Sinus tachycardia T wave abnormality, consider anterior ischemia Abnormal ECG No previous ECGs available Confirmed by Mike Nguyen ([id number]) on 05/07/2022 3:39:03 PM Referred By: REFERRED SELF Confirmed By:Mike Nguyen
--- NOTE | 2022-05-07 15:41 | CT Scan Report ---
CT SCAN OF THE CHEST WITHOUT IV CONTRAST CLINICAL HISTORY: Fever. Change in mental status. COMPARISON STUDY: Chest x-ray dated 05/07/2022. TECHNIQUE: CT scan of the thorax was performed from the thoracic inlet to the upper abdomen. Images are reviewed in the axial, sagittal, and coronal planes. IV contrast was not administered for this ex amination as per the referring clinician. A dose lowering technique was utilized adhering to the melvin ncikait of CHLOE. The examination is degraded by motion artifact, as well as by streak artifact from the arms which could not be elevated above the chest. FINDINGS: Thyroid: Imaged portions of the thyroid gland are normal in size and attenuation. Thoracic aorta: There is ectasia of the ascending thoracic aorta which measures up to 3.[address] The remainder of the thoracic aorta is normal in caliber, and the arch demonstrates standard 3-v essel anatomy. Heart: A right internal jugular central venous catheter is in place. The heart is top normal in size and without pericardial effusion. Lungs and pleural spaces: Evaluation of the lung parenchyma is significantly degraded by motion artif act. There are trace pleural effusions. Airspace consolidation is seen at both lung bases. The trache a appears clear. Mild intralobular septal thickening may represent fluid overload. Mediastinum: There is no mediastinal lymphadenopathy. Alondra: Not well assessed without IV contrast. Axillae: There is no axillary lymphadenopathy. Upper abdomen: Cholecystectomy clips are noted. The stomach and small bowel loops are markedly disten ded and fluid-filled. Small bowel obstruction which on today's CT scan. A small hiatal hernia is obse rved. The esophagus is distended and filled with fluid level of the thoracic inlet. Skeletal structures: The skeletal structures are osteopenic. No lytic or blastic bony lesions are see n. Degenerative change is noted in the shoulders and spine. IMPRESSION: 1. Severely streak and motion compromised examination. 2. The esophagus is distended and filled with fluid to the level of the thoracic inlet. This is likel y related to gaseous distention/small bowel obstruction and places the patient at risk for aspiration . 3. Airspace consolidation is seen at both lung bases and there are small pleural effusions. The appea jerri is typical for pneumonia/aspiration pneumonitis. Aspiration is favored given the above findings . Radiographic follow-up to resolution is recommended. 4. Additional findings as above. ACT 112: Negative or not required by law. Electronically signed by: Wilmar Stanford M.D. 05/07/2022 3:40 PM
[2022-05-07] MEDS ORDERED: ACETAMINOPHEN 325 MG TAB PO PRN (15:51)
[2022-05-07 16:23] LABS: BUN Creatinine Ratio 12.5 (10-20); Calcium 8.9 mg/dl (8.5-10.1); Creatinine Clr Calc Pharmacy 24.9 ml/min; Est GFR (African American) 20.3 ml/min; Est GFR (Non-African American) 17.5 ml/min; Potassium 3.6 mmol/L (3.5-5.1)
[2022-05-07 17:09] LABS: Troponin I High Sensitivity 103.5 pg/ml (0-14)
--- NOTE | 2022-05-07 17:12 | Surgery Consultation ---
Date of Consultation May 07, 2022 Assessment & Plan (1) SBO (small bowel obstruction): pt is a 67 year-old female who was admitted to ICU for septic shock, COVID infection, pneumonia, SOPHIE with CT finding SBO, IMP: SBO plan, no emergent surgery indication now, conservative treatment, NPO, IV fluid, NG tube, repeat labs and KUB in morning, will F/U, Thanks, Supervising Physician Co-Signing Physician Notes I have personally spent 60 minutes of critical care time in the direct management of this patient. This is a life/limb threatening event. This includes time spent evaluating patient, direct bedside care, chart review, p lacing orders, interpretation of diagnostic studies, discussion with consultants, patient, and/or family members regarding treatment decisions, as well as other required patient management activities. This time is exclusive of all separately billable procedures, and teaching time and separate from and in addition to any other critical care service time. History of Present Illness Reason for Consultation: SBO Requesting Physician: Sam Bella MD Attending Physician: Mary Kate Hamilton DO History of Present Illness Chief Complaint: mental status change AMS Primary Care Provider: Nursing [facility] This is a 67-year-old female with PMHx of traumatic brain injury in 2016, HTN, HLD, DM type II, obesity, history of DVT presents from [facility] for complaints of altered mental status. Pt TBI makes it difficult to obtain reliable HPI, ROS. Patient was sent to the ER due to worsening altered mental status, lethargy, weakness and temperature of 99 F. Here patient was found to have rectal temp of 104 F, tachycardic, hypotensive with BP of 70/50. She is noted to be COVID- 19 positive on initial respiratory panel. Per review of chart she was noted to have nausea vomiting and diarrhea prior to coming to the ER. Attempted to call [facility] twice without connection to a nurse for further information. Discussion was held with the patient's son, Charli Davis, via phone. He cannot provide information regarding his mother's symptoms in the past few days as [facility] has not returned his phone calls this morning either. He notes that since her traumatic brain injury, that she has been unable to speak sensibly, is not oriented to date or time, is only oriented to self. She has been in several facilities since 2016, most recently was transferred to [facility] when he moved to [place]. Recently he moved back to [place] due to work. He like to have his mother transferred to a facility closer to where he lives at this point in time if possible. I ( Jayde Aguillon MD ) got a call for consult SBO, I reviewed pt's H/P, labs and CT scan with pt, pt feels better, pt is awake, she can answered my questions, pt denies abdominal pain, passed BM yesterday, BP 134/73, HR 127, RR 28, T 37.6, O2 sat 96 %nasal cannula at 2 L/min Allergies Allergy/AdvReac Type Severity Reaction Status Date / Time aspirin Allergy Severe Unknown Verified 07/09/20 13:38 Home Medications Medication Instructions Recorded Confirmed Type Saccharomyces boulardii 250 mg 250 mg PO BID 07/03/20 05/07/22 History capsule (Florastor) acetaminophen 325 mg tablet 650 mg PO Q6H PRN Pain 07/03/20 05/07/22 History amantadine HCl 100 mg tablet 100 mg PO BID 07/03/20 05/07/22 Hi story aripiprazole 10 mg tablet (Abilify) 5 mg PO QAM 07/03/2004/28 History atorvastatin 40 mg tablet 60 mg PO HS 07/03/20 05/07/22 Histo ry hydrocodone 5 mg-acetaminophen 325 1 tab PO Q12 PRN Pain 07/03/2004/28 History mg tablet magnesium hydroxide 400 mg/5 mL 30 ml PO DAILY PRN Constipation 07/03/20 05/07/22 History oral suspension (Milk of Magnesia) bisacodyl 10 mg rectal suppository 10 mg NM DAILY PRN Constipation 05/07/22 05/07/22 History docusate sodium 100 mg capsule 100 mg PO DAILY 05/07/22 05/07/22 History duloxetine 60 mg capsule,delayed 60 mg PO DAILY 05/07/22 3 History release ergocalciferol (vitamin D2) 50,000 50,000 unit PO Q7D 05/07/2205/07 History unit tablet gabapentin 100 mg capsule 100 mg PO TID 05/07/22 05/07/22 Histo ry levothyroxine 25 mcg tablet 25 mcg PO DAILY 05/07/22 05/07/22 His tory lorazepam 0.5 mg tablet 0.5 mg PO BID 05/07/22 05/07/22 History ondansetron 4 mg disintegrating 4 mg PO Q6H PRN Nausea And Vomiting 05/07/22 05/07/22 History tablet potassium chloride 20 mEq 20 meq PO BID 05/07/22 05/07/22 Histo ry tablet,extended release sertraline 100 mg tablet 100 mg PO DAILY 05/07/22 05/07/22 Histor y sodium phosphates 19 gram-7 118 ml NM DAILY PRN Constipation 05/07/22 05/07/22 History gram/118 mL enema trazodone 50 mg tablet 50 mg PO HS 05/07/22 05/07/22 History Past Med/Surg History Medical History Constipation Dermatitis Diabetes mellitus DVT (deep venous thrombosis) unspecified lower extremity 2018Generalized anxiety disorder Hyperlipemia Hypertension Insomnia Intermittent explosive disorder Morbid obesity Psychosis Traumatic brain injury Surgical History No history of previous surgery Social History Smoking Status: Unknown if ever smoked Hx Alcohol Use: No Hx Substance Use: No Preferred Language: Martiniquais Communication Ability: Impaired Communication Ability Comment: 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 Beliefs That Will Affect Care: None Current Living Situation: Shelter Current Living Situation Comment: [facility] resident Other Information That Helps Us Care for You: No Feels Safe at Home: Yes Safety Concerns: Feels Safe At This Time Assistive Devices: None Review of Systems Review of Systems: Unobtainable due to cognitive status Allergies Allergy/AdvReac Type Severity Reaction Status Date / Time aspirin Allergy Severe Unknown Verified 07/09/20 13:38 Home Medications Medication Instructions Recorded Confirmed Type Saccharomyces boulardii 250 mg 250 mg PO BID 07/03/20 05/07/22 History capsule (Florastor) acetaminophen 325 mg tablet 650 mg PO Q6H PRN Pain 07/03/20 05/07/22 History amantadine HCl 100 mg tablet 100 mg PO BID 07/03/20 05/07/22 History aripiprazole 10 mg tablet (Abilify) 5 mg PO QAM 07/03/20 05/07/22 History atorvastatin 40 mg tablet 60 mg PO HS 07/03/20 05/07/22 History hydrocodone 5 mg-acetaminophen 325 1 tab PO Q12 PRN Pain 07/03/20 05/07/22 History mg tablet magnesium hydroxide 400 mg/5 mL 30 ml PO DAILY PRN Constipation 07/03/20 05/07/22 History oral suspension (Milk of Magnesia) bisacodyl 10 mg rectal suppository 10 mg NM DAILY PRN Constipation 05/07/22 05/07/22 History docusate sodium 100 mg capsule 100 mg PO DAILY 05/07/22 05/07/22 History duloxetine 60 mg capsule,delayed 60 mg PO DAILY 05/07/22 05/07/22 History release ergocalciferol (vitamin D2) 50,000 50,000 unit PO Q7D 05/07/22 05/07/22 History unit tablet gabapentin 100 mg capsule 100 mg PO TID 05/07/22 05/07/22 History levothyroxine 25 mcg tablet 25 mcg PO DAILY 05/07/22 05/07/22 History lorazepam 0.5 mg tablet 0.5 mg PO BID 05/07/22 05/07/22 History ondansetron 4 mg disintegrating 4 mg PO Q6H PRN Nausea And Vomiting 05/07/22 05/07/22 History tablet potassium chloride 20 mEq 20 meq PO BID 05/07/22 05/07/22 History tablet,extended release sertraline 100 mg tablet 100 mg PO DAILY 05/07/22 05/07/22 History sodium phosphates 19 gram-7 118 ml NM DAILY PRN Constipation 05/07/22 05/07/22 History gram/118 mL enema trazodone 50 mg tablet 50 mg PO HS 05/07/22 05/07/22 History Patient History Medical History Constipation Dermatitis Diabetes mellitus DVT (deep venous thrombosis) unspecified lower extremity 2018 Generalized anxiety disorder Hyperlipemia Hypertension Insomnia Intermittent explosive disorder Morbid obesity Psychosis Traumatic brain injury Surgical History No history of previous surgery Social History Smoking Status: Unknown if ever smoked Hx Alcohol Use: No Hx Substance Use: No Preferred Language: Martiniquais Communication Ability: Impaired Communication Ability Comment: 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 Beliefs That Will Affect Care: None Current Living Situation: Shelter Current Living Situation Comment: [facility] resident Other Information That Helps Us Care for You: No Feels Safe at Home: Yes Safety Concerns: Feels Safe At This Time Assistive Devices: None Review of Systems Constitutional: as per Subjective / HPI Eyes: as per Subjective / HPI Respiratory: as per Subjective / HPI Cardiovascular: Additional Comments: HTN Gastrointestinal: constipation Genitourinary: as per Subjective / HPI Musculoskeletal: as per Subjective / HPI Neurologic: as per Subjective / HPI Psychiatric: as per Subjective / HPI Endocrine: as per Subjective / HPI Hematologic / Lymphatic: as per Subjective / HPI Physical Exam Constitutional: no distress Eyes: PERRL, conjunctivae normal, anicteric sclerae Neck: trachea midline, no thyromegaly Respiratory: Auscultation: + diminished lung sounds Cardiovascular: RRR, no murmur, no edema Gastrointestinal (Abdomen): soft, NT, ND, BS +, scar just below umbilical area, Neurologic: patellar DTR's 2+ bilat, sensation intact Psychiatric: A+Ox3, euthymic affect Results & Data ([facility]) Vital Signs (Past 12 Hours) Vital Signs Temp Pulse Pulse Resp BP BP Pulse Ox 05/07/22 15:30 05/07/22 15:25 37.6 C H 128 H 30 H 131/76 94 05/07/22 15:35 127 H 28 H 134/73 96 05/07/22 15:35 122 H 30 H 106/68 94 05/07/22 15:35 125 H 26 H 117/65 95 05/07/22 15:30 122 H 30 H 95 05/07/22 15:30 96/73 L 05/07/22 15:25 93 05/07/22 14:55 126 H 34 H 97 05/07/22 14:55 102/66 05/07/22 14:50 124 H 25 H 96 05/07/22 14:50 128/71 05/07/22 14:45 121 H 27 H 96 05/07/22 14:45 122/71 05/07/22 14:35 125 H 25 H 96 05/07/22 14:35 114/77 02/01/23 14:30 126 H 24 95 05/07/22 14:30 114/71 05/07/22 14:25 125 H 22 95 05/07/22 14:25 125/70 05/07/22 14:20 124 H 28 H 95 05/07/22 14:20 126/78 05/07/22 14:15 127 H 20 95 05/07/22 14:15 130/71 05/07/22 14:10 128 H 30 H 95 05/07/22 14:10 107/73 05/07/22 14:05 125 H 30 H 95 05/07/22 14:05 127/71 05/07/22 14:00 126 H 17 93 05/07/22 14:00 127/77 05/07/22 13:55 127 H 22 94 05/07/22 13:55 119/79 05/07/22 13:50 126 H 28 H 94 05/07/22 13:50 127/74 05/07/22 13:45 126 H 27 H 94 05/07/22 13:45 118/90 05/07/22 13:40 125 H 21 93 05/07/22 13:40 120/64 05/07/22 13:46 37.0 C 05/07/22 13:35 122 H 30 H 93 05/07/22 13:35 113/63 05/07/22 13:30 121 H 32 H 95 05/07/22 13:30 112/62 05/07/22 13:25 121 H 28 H 94 05/07/22 13:25 100/60 05/07/22 13:20 119 H 29 H 93 05/07/22 13:20 96/60 L 05/07/22 13:20 96/60 L 05/07/22 13:18 117 H 26 H 92 05/07/22 13:17 116 H 30 H 92 05/07/22 13:17 98/60 L 05/07/22 13:16 115 H 30 H 93 05/07/22 13:14 115 H 47 H 94 05/07/22 13:14 78/55 L 05/07/22 13:10 116 H 31 H 93 05/07/22 13:10 83/53 L 05/07/22 13:05 117 H 35 H 94 05/07/22 13:00 117 H 31 H 92 05/07/22 13:00 82/56 L 05/07/22 12:55 116 H 30 H 92 05/07/22 12:50 100 H 35 H 96 05/07/22 12:50 94/59 L 05/07/22 12:45 99 H 31 H 95 05/07/22 12:40 112 H 30 H 94 05/07/22 12:40 111/65 05/07/22 12:30 114 H 34 H 97 05/07/22 12:30 123/63 05/07/22 12:20 112 H 34 H 98 05/07/22 12:20 111/62 05/07/22 12:10 113 H 33 H 95 05/07/22 12:10 131/60 05/07/22 12:01 117 H 34 H 95 05/07/22 11:50 126 H 36 H 95 05/07/22 11:50 95/64 L 05/07/22 11:44 128 H 33 H 94 05/07/22 11:44 84/59 L 05/07/22 11:40 127 H 37 H 05/07/22 11:40 87/66 L 05/07/22 11:32 131 H 25 H 05/07/22 11:32 118/64 05/07/22 11:30 127 H 33 H 05/07/22 11:20 132 H 41 H 05/07/22 11:14 138 H 92 05/07/22 11:14 106/46 L 05/07/22 11:10 137 H 90 05/07/22 10:47 40 C H 141 H 41 H 106/46 L 94 O2 Del Method O2 Flow Rate 05/07/22 15:30 Nasal Cannula 2 05/07/22 15:25 Nasal Cannula 2 05/07/22 15:35 Nasal Cannula 2 05/07/22 15:35 Nasal Cannula 2 05/07/22 15:35 Nasal Cannula 2 05/07/22 15:30 Nasal Cannula 2 05/07/22 15:30 05/07/22 15:25 Nasal Cannula 2 05/07/22 14:55 Nasal Cannula 2 05/07/22 14:55 05/07/22 14:50 Nasal Cannula 2 05/07/22 14:50 05/07/22 14:45 Nasal Cannula 2 05/07/22 14:45 05/07/22 14:35 Nasal Cannula 2 05/07/22 14:35 05/07/22 14:30 Nasal Cannula 2 05/07/22 14:30 05/07/22 14:25 Nasal Cannula 2 05/07/22 14:25 05/07/22 14:20 Nasal Cannula 2 05/07/22 14:20 05/07/22 14:15 Nasal Cannula 2 05/07/22 14:15 05/07/22 14:10 Nasal Cannula 2 05/07/22 14:10 05/07/22 14:05 Nasal Cannula 2 05/07/22 14:05 05/07/22 14:00 Nasal Cannula 2 05/07/22 14:00 05/07/22 13:55 Nasal Cannula 2 05/07/22 13:55 05/07/22 13:50 Nasal Cannula 2 05/07/22 13:50 05/07/22 13:45 Nasal Cannula 2 05/07/22 13:45 05/07/22 13:40 Nasal Cannula 2 05/07/22 13:40 05/07/22 13:46 05/07/22 13:35 Nasal Cannula 2 05/07/22 13:35 05/07/22 13:30 Nasal Cannula 2 05/07/22 13:30 05/07/22 13:25 Nasal Cannula 2 05/07/22 13:25 05/07/22 13:20 Nasal Cannula 2 05/07/22 13:20 05/07/22 13:20 05/07/22 13:18 Nasal Cannula 2 05/07/22 13:17 Nasal Cannula 2 05/07/22 13:17 05/07/22 13:16 Nasal Cannula 2 05/07/22 13:14 Nasal Cannula 2 05/07/22 13:14 05/07/22 13:10 Nasal Cannula 2 05/07/22 13:10 05/07/22 13:05 Nasal Cannula 2 05/07/22 13:00 Nasal Cannula 2 05/07/22 13:00 05/07/22 12:55 Nasal Cannula 2 05/07/22 12:50 Nasal Cannula 2 05/07/22 12:50 05/07/22 12:45 Nasal Cannula 2 05/07/22 12:40 Nasal Cannula 2 05/07/22 12:40 05/07/22 12:30 Nasal Cannula 2 05/07/22 12:30 05/07/22 12:20 Nasal Cannula 2 05/07/22 12:20 05/07/22 12:10 Nasal Cannula 2 05/07/22 12:10 05/07/22 12:01 Nasal Cannula 2 05/07/22 11:50 Nasal Cannula 2 05/07/22 11:50 05/07/22 11:44 Nasal Cannula 2 05/07/22 11:44 05/07/22 11:40 05/07/22 11:40 05/07/22 11:32 05/07/22 11:32 05/07/22 11:30 05/07/22 11:20 05/07/22 11:14 Nasal Cannula 2 05/07/22 11:14 05/07/22 11:10 Nasal Cannula 2 05/07/22 10:47 Nasal Cannula 2 Laboratory Results Abnormal lab results 05/07/22 05/07/22 05/07/22 Range/Units 11:03 11:04 11:40 RBC 5.63 H (4.20-5.40) M/uL Hgb 17.2 H (12.0-16.0) g/dl POC Hgb 20.7 H* (12.0-16.0) g/dl Hct 50.7 H (37.0-47.0) % POC Hct 61 H* (37-47) % RDW Std Deviation 47.6 H (36.4-46.3) fL Lymph # (Auto) 1.05 L (1.2-3.4) K/uL [place] # (Auto) 1.79 H (0.11-0.59) K/uL ABG pCO2 (35-46) mmHg ABG HCO3 (19-24) mmol/L ABG O2 Saturation (90-95) % POC Sodium (135-144) mmol/L POC Potassium 8.4 H* (3.3-5.0) mmol/L Chloride (98-107) mmol/L Carbon Dioxide (21-32) mmol/L POC Total CO2 22 L (24-31) mmol/L Anion Gap (3-11) POC BUN 56 H (7-18) mg/dl BUN (6-23) mg/dl Creatinine (0.6-1.2) mg/dl POC Creatinine 3.1 H (0.6-1.3) mg/dl Glucose (70-99(Fasting)) mg/dl POC Glucose 189 H (70-99) mg/dl POC Glucose (other) 181 H (70-99) mg/dl Lactate (0.4-2.0) mmol/L POC Ioniz Calcium Keren 1.06 L (1.12-1.32) mmol/l Troponin I High Sens (0-14) pg/ml Procalcitonin (0-0.5) ng/ml SARS-CoV-2 (PCR) (NotDetected) 05/07/22 05/07/22 05/07/22 Range/Units 11:40 11:40 11:40 RBC (4.20-5.40) M/uL Hgb (12.0-16.0) g/dl POC Hgb (12.0-16.0) g/dl Hct (37.0-47.0) % POC Hct (37-47) % RDW Std Deviation (36.4-46.3) fL Lymph # (Auto) (1.2-3.4) K/uL [place] # (Auto) (0.11-0.59) K/uL ABG pCO2 (35-46) mmHg ABG HCO3 (19-24) mmol/L ABG O2 Saturation (90-95) % POC Sodium (135-144) mmol/L POC Potassium (3.3-5.0) mmol/L Chloride (98-107) mmol/L Carbon Dioxide 17 L (21-32) mmol/L POC Total CO2 (24-31) mmol/L Anion Gap 17 H (3-11) POC BUN (7-18) mg/dl BUN 36 H (6-23) mg/dl Creatinine 3.22 H (0.6-1.2) mg/dl POC Creatinine (0.6-1.3) mg/dl Glucose 170 H (70-99(Fasting)) mg/dl POC Glucose (70-99) mg/dl POC Glucose (other) (70-99) mg/dl Lactate 4.0 H* (0.4-2.0) mmol/L POC Ioniz Calcium Keren (1.12-1.32) mmol/l Troponin I High Sens 88.0 H* (0-14) pg/ml Procalcitonin 7.07 H (0-0.5) ng/ml SARS-CoV-2 (PCR) (NotDetected) 05/07/22 05/07/22 05/07/22 Range/Units 11:46 11:47 11:52 RBC (4.20-5.40) M/uL Hgb (12.0-16.0) g/dl POC Hgb (12.0-16.0) g/dl Hct (37.0-47.0) % POC Hct (37-47) % RDW Std Deviation (36.4-46.3) fL Lymph # (Auto) (1.2-3.4) K/uL [place] # (Auto) (0.11-0.59) K/uL ABG pCO2 23 L (35-46) mmHg ABG HCO3 14 L (19-24) mmol/L ABG O2 Saturation 97.3 H (90-95) % POC Sodium (135-144) mmol/L POC Potassium (3.3-5.0) mmol/L Chloride (98-107) mmol/L Carbon Dioxide (21-32) mmol/L POC Total CO2 (24-31) mmol/L Anion Gap (3-11) POC BUN (7-18) mg/dl BUN (6-23) mg/dl Creatinine (0.6-1.2) mg/dl POC Creatinine (0.6-1.3) mg/dl Glucose (70-99(Fasting)) mg/dl POC Glucose 168 H (70-99) mg/dl POC Glucose (other) (70-99) mg/dl Lactate (0.4-2.0) mmol/L POC Ioniz Calcium Keren (1.12-1.32) mmol/l Troponin I High Sens (0-14) pg/ml Procalcitonin (0-0.5) ng/ml SARS-CoV-2 (PCR) DETECTED A* (NotDetected) 05/07/22 05/07/22 05/07/22 Range/Units 13:05 13:45 15:38 RBC (4.20-5.40) M/uL Hgb (12.0-16.0) g/dl POC Hgb (12.0-16.0) g/dl Hct (37.0-47.0) % POC Hct (37-47) % RDW Std Deviation (36.4-46.3) fL Lymph # (Auto) (1.2-3.4) K/uL [place] # (Auto) (0.11-0.59) K/uL ABG pCO2 (35-46) mmHg ABG HCO3 (19-24) mmol/L ABG O2 Saturation (90-95) % POC Sodium 146 H (135-144) mmol/L POC Potassium 3.2 L (3.3-5.0) mmol/L Chloride 109 H (98-107) mmol/L Carbon Dioxide 18 L (21-32) mmol/L POC Total CO2 19 L (24-31) mmol/L Anion Gap 14 H (3-11) POC BUN 32 H (7-18) mg/dl BUN 34 H (6-23) mg/dl Creatinine 2.73 H D (0.6-1.2) mg/dl POC Creatinine 2.7 H (0.6-1.3) mg/dl Glucose 136 H (70-99(Fasting)) mg/dl POC Glucose (70-99) mg/dl POC Glucose (other) 138 H (70-99) mg/dl Lactate 2.5 H* (0.4-2.0) mmol/L POC Ioniz Calcium Keren (1.12-1.32) mmol/l Troponin I High Sens 103.5 H* (0-14) pg/ml Procalcitonin (0-0.5) ng/ml SARS-CoV-2 (PCR) (NotDetected) Diagnostic Findings CT SCAN OF THE ABDOMEN AND PELVIS WITHOUT IV CONTRAST CLINICAL HISTORY: Fever. Change in mental status. COMPARISON STUDY: No priors. TECHNIQUE: CT scan of the abdomen and pelvis is performed from the lung bases to the proximal femora. Images are reviewed in the axial, sagittal, and coronal planes. IV contrast was not administered for this examination. Note that the examination was performed in suboptimal fashion without oral and IV contrast. A dose lowering technique was utilized adhering to the principles of ALARA. CT DOSE: 3538.27 mGy.cm FINDINGS: Lung bases: The tip of a central venous catheter terminates at the cavoatrial junction. The heart is normal in size and without pericardial effusion. Airspace consolidation is seen at both lung bases with trace pleural effusions. Liver: The unenhanced liver is normal in size, contour, and attenuation. There is no intrahepatic biliary ductal dilatation. Gallbladder: Surgically absent noting clips in the gallbladder fossa. Spleen: Normal in size and attenuation. Pancreas: The unenhanced pancreas is atrophic and grossly unremarkable. Adrenal glands: Unremarkable. Kidneys: The unenhanced kidneys demonstrate cortical atrophy and are without hydronephrosis. There are no renal calculi identified. There is no evidence of contour deforming renal mass lesion. Abdominal vasculature: The abdominal aorta is normal in course and caliber noting mild atherosclerotic calcification. An infrarenal IVC filter is in place the inferior vena cava is largely decompressed. Bowel: The stomach and proximal small bowel loops are markedly distended and fluid-filled. Small bowel loops measure up to 4.5 cm in diameter. A transition point is seen in the right lower quadrant on image #[id number]. The distal small bowel and colon are decompressed, and the appearance is consistent with a high-grade small bowel obstruction. No focally thick-walled bowel loops are identified. There is trace interloop fluid. No pneumatosis intestinalis or portal venous gas is seen. The appendix is well-visualized and normal. Peritoneum: There is no intraperitoneal free air or abdominal ascites. Lymphadenopathy: None. Pelvic viscera: The bladder is decompressed and not evaluated. The uterus and adnexa are normal as visualized. Skeletal structures: The skeletal structures are osteopenic. There is moderate lumbosacral spondylosis. No lytic or blastic lesions are seen. Extensive bony overgrowth is seen around the hips and bony pelvis. IMPRESSION: 1. High-grade small bowel obstruction. A transition point is seen in the right lower quadrant and this is likely on the basis of adhesions. 2. Interloop fluid is noted. 3. No intraperitoneal free air is identified. No focally thick-walled bowel loops are identified. There is no pneumatosis intestinalis or portal venous gas. 4. Airspace consolidation is seen at both lung bases with trace pleural effusions. Correlate clinically for evidence of pneumonia/aspiration pneumonitis. 5. Additional findings as above.
[2022-05-07 17:13] LABS: Fibrinogen 472 mg/dl (184-400); INR 1.1 (0.9-1.1); Partial Thromboplastin Time 26.2 Seconds (21.0-31.0); Prothrombin Time 11.6 Seconds (9.0-12.0)
--- NOTE | 2022-05-07 18:04 | XRay Report ---
KUB CLINICAL HISTORY: NG placement COMPARISON STUDY: CT of the abdomen and pelvis performed earlier today. FINDINGS: Tip of nasogastric tube is within the gastric antrum. Gastric distention has improved. Chol ecystectomy clips and an IVC filter incidentally noted. Small bowel dilatation is better depicted on recent CT. Central venous catheter is partially imaged. IMPRESSION: 1. Tip of nasogastric tube within the gastric antrum. 2. Small bowel dilatation consistent with a small bowel obstruction, as shown on CT. ACT 112: Negative or not required by law. Electronically signed by: Mars Coles M.D. 05/07/2022 6:02 PM
[2022-05-07 18:25] LABS: Appearance Urine Turbid (Clear); Bacteria Urine Automated Negative (Negative); Bilirubin Urine Negative (Negative); Blood Urine 2+ (Negative); Color Urine Yellow; Epithelial Cell Urine Auto >30 /lpf (0-5); Glucose Urine UA Negative (Negative); Ketones Urine Trace (Negative); Leukocyte Esterase Urine Negative (Negative); Nitrite Urine Negative (Negative); Protein Urine 2+ (Negative); RBC Urine Automated 0-4 /hpf (0-4); Specific Gravity Urine 1.025 (1.000-1.030); Urobilinogen Urine Negative (Negative)
[2022-05-07] MEDS: ATORVASTATIN 20 MG TAB PO SCH (20:00)
[2022-05-07] MEDS: GABAPENTIN 100 MG CAP PO SCH (20:00)
[2022-05-07] MEDS: AMANTADINE HCL 100 MG CAPSULE PO SCH (20:00)
[2022-05-07] MEDS: ACETAMINOPHEN 325 MG TAB PO PRN (20:01)
--- NOTE | 2022-05-07 20:32 | Pharmacy Report ---
Pharmacy PK ABX Note - Date of Service May 07, 2022 - Assessment and Plan Assessment 67 year old F receiving vancomycin for empiric treatment of sepsis/septic shock. Pertinent microbiologic data includes: negative nasal MRSA swab, + COVID-[address] suggestive of aspiration pneumonitis/pneumonia. Patient with gastrointestinal symptoms. Tmax 40 C on admission. Normal WBC. Procalcitonin elevated although patient with significantly elevated SCR from baseline. Given a dose of cefepime in the ED, this was not continued on admission, with current CrCl dosing would be every 24 hours- re-eval need with source (COVID-19 vs. additional source). Blood cultures, urine culture pending. Vancomycin continued on admission, will dose by levels given current half life estimation ~31 hours. Plan Vancomycin * Loading dose: 2500 mg IV x 1 * Dose by levels * Random level ordered with AM labs ~16 hours from load, renal function improving, albeit not rapidly at this point. Pharmacy will continue to follow and will adjust dose/frequency as necessary. Thank you. Pharmacy has transitioned to AUC monitoring for vancomycin. AUC/SUZY is the preferred PK/PD target and is associated with decreased risk of nephrotoxicity compared to traditional trough targets.
[2022-05-07] MEDS: NORMOSOL-R 1,000 ML IV SCH (20:35)
[2022-05-07] MEDS ORDERED: SACCHAROMYCES BOULARDII 250 MG CAP PO SCH (21:00)
[2022-05-07] MEDS: HEPARIN SOD 5,000 UNIT/0.5 ML VIAL SQ SCH (21:26)
[2022-05-07 23:55] LABS: Adenovirus F 40/41 PCR Not Detected (NotDetected); Astrovirus PCR Not Detected (NotDetected); Campylobacter PCR Not Detected (NotDetected); Cryptosporidium PCR Not Detected (NotDetected); Cyclospora cayetanensis PCR Not Detected (NotDetected); Entamoeba histolytica PCR Not Detected (NotDetected); Enteroaggregative E.coli(EAEC) Not Detected (NotDetected); Enteropathogenic E.coli (EPEC) Not Detected (NotDetected); Enterotoxigenic E.coli (ETEC) Not Detected (NotDetected); Giardia lamblia PCR Not Detected (NotDetected); Plesiomonas shigelloides PCR Not Detected (NotDetected); Rotavirus A PCR Not Detected (NotDetected); Salmonella PCR Not Detected (NotDetected); Sapovirus PCR Not Detected (NotDetected); Shiga-like Toxin E.coli (STEC) Not Detected (NotDetected); Shigella/Enteroinvasive E.coli Not Detected (NotDetected); Vibrio cholerae PCR Not Detected (NotDetected); Vibrio species PCR Not Detected (NotDetected); Yersinia enterocolitica PCR Not Detected (NotDetected)
[2022-05-07 23:59] LABS: Norovirus GI/GII PCR DETECTED (NotDetected)
[2022-05-08 04:41] LABS: Hematocrit (blood only) 44.8 % (37.0-47.0); Hemoglobin 15.5 g/dl (12.0-16.0); Mean Corpuscular Hemoglobin 30.5 pg (25.0-34.0); Mean Corpuscular Hgb Conc 34.6 g/dL (32.0-36.0); Mean Platelet Volume 11.6 fL (9.4-12.4); Platelet Count 170 K/uL (130-400); RDW Coefficient of Variation 14.2 % (11.5-14.5); RDW Standard Deviation 45.5 fL (36.4-46.3); Red Blood Count 5.09 M/uL (4.20-5.40); White Blood Count 9.53 K/ul (4.8-10.8)
[2022-05-08 05:00] LABS: Albumin Globulin Ratio 1.2 (0.9-2); Albumin Level 3.2 gm/dl (3.4-5.0); BUN Creatinine Ratio 17.4 (10-20); Bilirubin,Total 0.7 mg/dl (0.2-1.0); Calcium 7.9 mg/dl (8.5-10.1); Creatinine Clr Calc Pharmacy 39.5 ml/min; Est GFR (African American) 35.5 ml/min; Est GFR (Non-African American) 30.7 ml/min; Globulin 2.7 gm/dl (2.5-4.0); Magnesium 1.9 mg/dl (1.7-2.4); Phosphorus 2.5 mg/dl (2.5-4.9); Potassium 3.1 mmol/L (3.5-5.1); Total Protein 5.9 gm/dl (6.0-8.3)
[2022-05-08] MEDS: NORMOSOL-R 1,000 ML IV SCH ×2 (05:42→18:06)
[2022-05-08] MEDS: LEVOTHYROXINE SODIUM 25 MCG TABLET PO SCH (05:42)
[2022-05-08] MEDS: HEPARIN SOD 5,000 UNIT/0.5 ML VIAL SQ SCH ×3 (05:42→20:12)
[2022-05-08] MEDS ORDERED: MAGNESIUM SULFATE / D5W 1 GM/100 ML BAG IV ONE (06:13)
[2022-05-08] MEDS ORDERED: NORMOSOL-R 1,000 ML IV ONE ×2 (06:16→11:35)
[2022-05-08] MEDS: POTASSIUM CHLORIDE / WTR 10 MEQ/100 ML PLCT IV SCH ×4 (06:21→10:18)
--- NOTE | 2022-05-08 07:04 | Critical Care Progress Note ---
Date of Service May 08, 2022 Assessment & Plan (1) Septic shock: Plan: Reason Critically Ill: 67-year-old female with history of traumatic brain injury who presents with concerns for sepsis/septic shock and COVID-19 infection PLAN: Neuro: History traumatic brain injury -Continue amantadine 100 mg twice daily, Abilify 5 mg every morning, duloxetine 60 mg daily, gabapentin 100 mg 3 times daily, Strattera lean 100 mg daily Resp: COVID-19 infection -Wean supplemental oxygen as tolerated CV: Tachycardia, hypotension, severe volume depletion --> improving, no longer requiring vasoactives -Severe dehydration secondary to nausea, vomiting, and diarrhea Fluids/Renal: Acute kidney injury - improving -Normosol at 100 mL/h -Gerardo to measure urine output ID: Broad-spectrum antibiotics started in emergency department - f/u blood cultures and urine cultures -Vancomycin consult ordered, given cefepime in emergency department. -This appears to be related to volume loss secondary to gastroenteritis, lactic acidosis significantly improving gastroenteritis can be secondary to COVID-19 as well Patient positive for two viruses - less concern for bacterial cause of sepsis - d/c antibiotics at this time GI/Nutrition: Hyperlipidemia -Atorvastatin 60 mg nightly High-grade small bowel obstruction with transition point -NG tube decompression - clamped, significant output, continue for now -Gen surg on board - conservative management for now -Son denies abdominal surgical history. Norovirus -Continue with supportive care Heme: Hemoconcentration - improved History of DVT recorded in prior records, no anticoagulation medications noted on home meds DVT prophylaxis: DVT prophylaxis with heparin 5000 thrice daily Endocrine: ICU hyperglycemia protocol Presumed hypothyroidism secondary to Home medication list -Continue levothyroxine 25 mcg daily Vascular access: Right internal jugular placed in emergency department Code Status: Full code -Discussed wishes with patient's son: Sukhjinder Davis via telephone Disposition: ICU (2) COVID-19 virus infection: (3) Nausea vomiting and diarrhea: (4) SOPHIE (acute kidney injury): (5) Diabetes mellitus: (6) Generalized anxiety disorder: (7) Acute metabolic encephalopathy: (8) Traumatic brain injury: Admission and Anticipated Discharge Date Admission Date: May 07, 2022 Supervising Physician Co-Signing Physician Notes Dr. Hamlin was resident physician during care of patient. I separately evaluated patient for nelson portions of the history and the exam. I was present during the critical portion of medical decision making, and I discussed the case with the resident. I generally agree with the findings and plan. Weaning vasoactive medication, almost discontinued. Good urine production with decreasing creatinine, mild hypokalemia which is to be expected given small bowel obstruction which NG output is also decreasing. Troponin elevation most consistent with type II ischemia in the setting of severe dehydration. Patient does not have white count, mild fever, COVID-positive and norovirus positive. Urinalysis reviewed, blood cultures pending, urine culture obtained, no oxygen requirement. In the light of 2 viruses being positive and radiographic findings consistent with small bowel obstruction and rapid clinical improvement with volume expansion I think it is reasonable to discontinue antibiotics at this time. Recheck BMP and lactate at 2 PM. I have personally spent 35 minutes of critical care time in the direct management of this patient. This is a life/limb threatening event. This includes time spent evaluating patient, direct bedside care, chart review, placing orders, interpretation of diagnostic studies, discussion with consultants, patient, and/or family members regarding treatment decisions, as well as other required patient management activities. This time is exclusive of all separately billable procedures, and teaching time and separate from and in addition to any other critical care service time. Subjective History limited 2/2 mental status. Per nursing patient is having green diarrhea. No abdominal pain. Physical Exam Physical Exam: Gen: alert, awake, responding appropriately to questions Skin: warm, dry, well perfused Head: AT NC CV: RRR no m/r/g Resp: CTAB no increased work of breathing GI: soft, non-tender, mildly distended, no guarding/rebound MSK: no gross deformities Results & Data Results & Data ([facility]) Vital Signs (Past 12 Hours) Vital Signs Temp Pulse Resp BP Pulse Ox O2 Del Method O2 Flow Rate 05/08/22 06:30 37.9 C H 108 H 25 H 119/84 96 Nasal Cannula 2 05/08/22 06:00 37.9 C H 110 H 24 120/74 96 Nasal Cannula 2 05/08/22 05:30 37.7 C H 110 H 26 H 116/73 96 Nasal Cannula 2 05/08/22 05:00 37.8 C H 111 H 26 H 132/76 95 Nasal Cannula 2 05/08/22 04:30 37.9 C H 112 H 26 H 141/85 H 95 Nasal Cannula 2 05/08/22 04:00 37.9 C H 109 H 23 110/68 93 Nasal Cannula 2 05/08/22 03:30 37.9 C H 110 H 23 100/69 95 Nasal Cannula 2 05/08/22 03:00 38.0 C H 111 H 27 H 111/67 95 Nasal Cannula 2 05/08/22 02:30 38.2 C H 112 H 26 H 110/76 94 Nasal Cannula 2 05/08/22 02:00 37.6 C H 104 H 28 H 117/71 96 Nasal Cannula 2 05/08/22 01:30 37.9 C H 113 H 27 H 121/85 94 Nasal Cannula 2 05/08/22 01:00 37.9 C H 113 H 26 H 125/75 92 Nasal Cannula 2 05/08/22 00:30 38.0 C H 115 H 27 H 107/76 92 Nasal Cannula 2 05/08/22 00:01 38.4 C H 115 H 24 136/69 94 Nasal Cannula 2 05/07/22 23:30 38.5 C H 118 H 26 H 131/76 96 Nasal Cannula 2 05/07/22 23:00 38.5 C H 117 H 24 123/71 95 Nasal Cannula 2 05/07/22 22:30 38.5 C H 119 H 26 H 114/76 95 Nasal Cannula 2 05/07/22 22:00 38.4 C H 118 H 27 H 129/80 96 Nasal Cannula 2 05/07/22 21:30 38.2 C H 117 H 28 H 96/70 L 95 Nasal Cannula 2 05/07/22 21:00 38.2 C H 118 H 27 H 112/65 94 Nasal Cannula 2 05/07/22 20:30 38.2 C H 115 H 24 105/69 97 Nasal Cannula 2 05/07/22 20:00 38.3 C H 118 H 26 H 111/72 95 Nasal Cannula 2 05/07/22 19:30 121 H 27 H 106/71 94 Nasal Cannula 2 05/07/22 19:15 123 H 28 H 104/74 94 Nasal Cannula 2 05/07/22 20:00 Nasal Cannula 2 Laboratory Results 05/08/22 05/08/22 05/08/22 Range/Units 04:14 04:14 04:14 WBC 9.53 (4.8-10.8) K/ul RBC 5.09 (4.20-5.40) M/uL Hgb 15.5 (12.0-16.0) g/dl POC Hgb (12.0-16.0) g/dl Hct 44.8 (37.0-47.0) % POC Hct (37-47) % MCV 88.0 (80.0-100.0) fL MCH 30.5 (25.0-34.0) pg MCHC 34.6 (32.0-36.0) g/dL RDW Std Deviation 45.5 (36.4-46.3) fL RDW Coeff of Loni 14.2 (11.5-14.5) % Plt Count 170 (130-400) K/uL MPV 11.6 (9.4-12.4) fL Immature Gran % (Auto) % Neut % (Auto) % Lymph % (Auto) % [place] % (Auto) % Eos % (Auto) % Baso % (Auto) % Neut # (Auto) (1.40-6.50) K/uL Lymph # (Auto) (1.2-3.4) K/uL [place] # (Auto) (0.11-0.59) K/uL Eos # (Auto) (0-0.50) K/uL Baso # (Auto) (0-0.2) K/uL Immature Gran # (Auto) (0.01-0.20) K/uL PT (9.0-12.0) Seconds INR (0.9-1.1) APTT (21.0-31.0) Seconds PTT Ratio Fibrinogen (184-400) mg/dl ABG pH (7.35-7.45) ABG pCO2 (35-46) mmHg ABG pO2 (80-95) mmHg ABG HCO3 (19-24) mmol/L ABG O2 Saturation (90-95) % ABG Base Excess (-9-1.8) mEq/L Rai Test (Pos) Oxygen Given POC Sodium (135-144) mmol/L Sodium 142 (136-145) mmol/L POC Potassium (3.3-5.0) mmol/L Potassium 3.1 L (3.5-5.1) mmol/L POC Chloride (101-112) mmol/L Chloride 107 (98-107) mmol/L Carbon Dioxide 25 (21-32) mmol/L POC Total CO2 (24-31) mmol/L Anion Gap 10 (3-11) POC Anion Gap (16-25) mmol/L POC BUN (7-18) mg/dl BUN 30 H (6-23) mg/dl Creatinine 1.72 H D (0.6-1.2) mg/dl POC Creatinine (0.6-1.3) mg/dl Est Cr Clr Drug Dosing 39.5 ml/min Est GFR ( Amer) 35.5 ml/min Est GFR (Non-Af Amer) 30.7 ml/min BUN/Creatinine Ratio 17.4 (10-20) Glucose 143 H (70-99(Fasting)) mg/dl POC Glucose (70-99) mg/dl POC Glucose (other) (70-99) mg/dl Lactate (0.4-2.0) mmol/L Calcium 7.9 L (8.5-10.1) mg/dl POC Ioniz Calcium Keren (1.12-1.32) mmol/l Phosphorus 2.5 (2.5-4.9) mg/dl Magnesium 1.9 (1.7-2.4) mg/dl Total Bilirubin 0.7 (0.2-1.0) mg/dl Direct Bilirubin (0-0.2) mg/dl AST 35 (13-39) U/L ALT 19 (7-52) U/L Alkaline Phosphatase 60 (34-104) U/L Troponin I High Sens (0-14) pg/ml Total Protein 5.9 L (6.0-8.3) gm/dl Albumin 3.2 L (3.4-5.0) gm/dl Globulin 2.7 (2.5-4.0) gm/dl Albumin/Globulin Ratio 1.2 (0.9-2) Procalcitonin (0-0.5) ng/ml Urine Color Urine Appearance (Clear) Urine pH (4.5-7.5) Ur Specific [place] (1.000-1.030) Urine Protein (Negative) Urine Glucose (UA) (Negative) Urine Ketones (Negative) Urine Blood (Negative) Urine Nitrite (Negative) Urine Bilirubin (Negative) Urine Urobilinogen (Negative) Ur Leukocyte Esterase (Negative) Urine WBC (Auto) (0-5) /hpf Urine RBC (Auto) (0-4) /hpf U Hyaline Cast (Auto) (0-5) /lpf U Epithel Cells (Auto) (0-5) /lpf Urine Bacteria (Auto) (Negative) Ur Renal Epithelial Cell Granular Casts (0) /lpf Urine Yeast Nasal Screen MRSA (PCR) (Negative) Stl C. cayetanensis PCR (NotDetected) Stool Rotavirus A PCR (NotDetected) Stl Adenov F 40/41 PCR (NotDetected) Stool Astrovirus (PCR) (NotDetected) Stool Campylobacter PCR (NotDetected) Stl C. diff Tox B Gene (Neg) Stool Cryptosporidium PCR (NotDetected) Stl E.coli Shiga Tox PCR (NotDetected) Stl Enterotoxigenic E PCR (NotDetected) Stool EPEC (PCR) (NotDetected) Stool EAEC (PCR) (NotDetected) Stl E. histolytica PCR (NotDetected) Stool Giardia Lamblia PCR (NotDetected) Stool Salmonella PCR (NotDetected) Stool Sapovirus (PCR) (NotDetected) Stl P. shigelloides PCR (NotDetected) Stl Shigella/EIEC PCR (NotDetected) St Y.enterocolitica PCR (NotDetected) Stool Vibrio (PCR) (NotDetected) Stl Vibrio cholerae PCR (NotDetected) Stl Norovirus GI/GII PCR (NotDetected) Random Vancomycin 21.0 H (10-20) mcg/ml Adenovirus (PCR) (NotDetected) B. pertussis DNA (PCR) (NotDetected) B.parapertussis DNA PCR (NotDetected) C. pneumoniae DNA (PCR) (NotDetected) Coronavirus OC43 (PCR) (NotDetected) Coronavirus HKU1 (PCR) (NotDetected) Coronavirus 229E (PCR) (NotDetected) SARS-CoV-2 (PCR) (NotDetected) Coronavirus NL63 (PCR) (NotDetected) Human Metapneumovir PCR (NotDetected) Influenza Type A (PCR) (NotDetected) Influenza Type B (PCR) (NotDetected) M. pneumoniae (PCR) (NotDetected) Parainfluenza 1 (PCR) (NotDetected) Parainfluenza 2 (PCR) (NotDetected) Parainfluenza 3 (PCR) (NotDetected) Parainfluenza 4 (PCR) (NotDetected) RSV (PCR) (NotDetected) Entero/Rhino (PCR) (NotDetected) Blood Type Antibody Screen 05/07/22 05/07/22 05/07/22 Range/Units 23:54 21:50 21:50 WBC (4.8-10.8) K/ul RBC (4.20-5.40) M/uL Hgb (12.0-16.0) g/dl POC Hgb (12.0-16.0) g/dl Hct (37.0-47.0) % POC Hct (37-47) % MCV (80.0-100.0) fL MCH (25.0-34.0) pg MCHC (32.0-36.0) g/dL RDW Std Deviation (36.4-46.3) fL RDW Coeff of Loni (11.5-14.5) % Plt Count (130-400) K/uL MPV (9.4-12.4) fL Immature Gran % (Auto) % Neut % (Auto) % Lymph % (Auto) % [place] % (Auto) % Eos % (Auto) % Baso % (Auto) % Neut # (Auto) (1.40-6.50) K/uL Lymph # (Auto) (1.2-3.4) K/uL [place] # (Auto) (0.11-0.59) K/uL Eos # (Auto) (0-0.50) K/uL Baso # (Auto) (0-0.2) K/uL Immature Gran # (Auto) (0.01-0.20) K/uL PT (9.0-12.0) Seconds INR (0.9-1.1) APTT (21.0-31.0) Seconds PTT Ratio Fibrinogen (184-400) mg/dl ABG pH (7.35-7.45) ABG pCO2 (35-46) mmHg ABG pO2 (80-95) mmHg ABG HCO3 (19-24) mmol/L ABG O2 Saturation (90-95) % ABG Base Excess (-9-1.8) mEq/L Rai Test (Pos) Oxygen Given POC Sodium (135-144) mmol/L Sodium (136-145) mmol/L POC Potassium (3.3-5.0) mmol/L Potassium (3.5-5.1) mmol/L POC Chloride (101-112) mmol/L Chloride (98-107) mmol/L Carbon Dioxide (21-32) mmol/L POC Total CO2 (24-31) mmol/L Anion Gap (3-11) POC Anion Gap (16-25) mmol/L POC BUN (7-18) mg/dl BUN (6-23) mg/dl Creatinine (0.6-1.2) mg/dl POC Creatinine (0.6-1.3) mg/dl Est Cr Clr Drug Dosing ml/min Est GFR ( Amer) ml/min Est GFR (Non-Af Amer) ml/min BUN/Creatinine Ratio (10-20) Glucose (70-99(Fasting)) mg/dl POC Glucose 166 H (70-99) mg/dl POC Glucose (other) (70-99) mg/dl Lactate (0.4-2.0) mmol/L Calcium (8.5-10.1) mg/dl POC Ioniz Calcium Keren (1.12-1.32) mmol/l Phosphorus (2.5-4.9) mg/dl Magnesium (1.7-2.4) mg/dl Total Bilirubin (0.2-1.0) mg/dl Direct Bilirubin (0-0.2) mg/dl AST (13-39) U/L ALT (7-52) U/L Alkaline Phosphatase (34-104) U/L Troponin I High Sens (0-14) pg/ml Total Protein (6.0-8.3) gm/dl Albumin (3.4-5.0) gm/dl Globulin (2.5-4.0) gm/dl Albumin/Globulin Ratio (0.9-2) Procalcitonin (0-0.5) ng/ml Urine Color Urine Appearance (Clear) Urine pH (4.5-7.5) Ur Specific [place] (1.000-1.030) Urine Protein (Negative) Urine Glucose (UA) (Negative) Urine Ketones (Negative) Urine Blood (Negative) Urine Nitrite (Negative) Urine Bilirubin (Negative) Urine Urobilinogen (Negative) Ur Leukocyte Esterase (Negative) Urine WBC (Auto) (0-5) /hpf Urine RBC (Auto) (0-4) /hpf U Hyaline Cast (Auto) (0-5) /lpf U Epithel Cells (Auto) (0-5) /lpf Urine Bacteria (Auto) (Negative) Ur Renal Epithelial Cell Granular Casts (0) /lpf Urine Yeast Nasal Screen MRSA (PCR) (Negative) Stl C. cayetanensis PCR Not Detected (NotDetected) Stool Rotavirus A PCR Not Detected (NotDetected) Stl Adenov F 40/41 PCR Not Detected (NotDetected) Stool Astrovirus (PCR) Not Detected (NotDetected) Stool Campylobacter PCR Not Detected (NotDetected) Stl C. diff Tox B Gene Negative Cdiff Gene (Neg) Stool Cryptosporidium PCR Not Detected (NotDetected) Stl E.coli Shiga Tox PCR Not Detected (NotDetected) Stl Enterotoxigenic E PCR Not Detected (NotDetected) Stool EPEC (PCR) Not Detected (NotDetected) Stool EAEC (PCR) Not Detected (NotDetected) Stl E. histolytica PCR Not Detected (NotDetected) Stool Giardia Lamblia PCR Not Detected (NotDetected) Stool Salmonella PCR Not Detected (NotDetected) Stool Sapovirus (PCR) Not Detected (NotDetected) Stl P. shigelloides PCR Not Detected (NotDetected) Stl Shigella/EIEC PCR Not Detected (NotDetected) St Y.enterocolitica PCR Not Detected (NotDetected) Stool Vibrio (PCR) Not Detected (NotDetected) Stl Vibrio cholerae PCR Not Detected (NotDetected) Stl Norovirus GI/GII PCR DETECTED A* (NotDetected) Random Vancomycin (10-20) mcg/ml Adenovirus (PCR) (NotDetected) B. pertussis DNA (PCR) (NotDetected) B.parapertussis DNA PCR (NotDetected) C. pneumoniae DNA (PCR) (NotDetected) Coronavirus OC43 (PCR) (NotDetected) Coronavirus HKU1 (PCR) (NotDetected) Coronavirus 229E (PCR) (NotDetected) SARS-CoV-2 (PCR) (NotDetected) Coronavirus NL63 (PCR) (NotDetected) Human Metapneumovir PCR (NotDetected) Influenza Type A (PCR) (NotDetected) Influenza Type B (PCR) (NotDetected) M. pneumoniae (PCR) (NotDetected) Parainfluenza 1 (PCR) (NotDetected) Parainfluenza 2 (PCR) (NotDetected) Parainfluenza 3 (PCR) (NotDetected) Parainfluenza 4 (PCR) (NotDetected) RSV (PCR) (NotDetected) Entero/Rhino (PCR) (NotDetected) Blood Type Antibody Screen 05/07/22 05/07/22 05/07/22 Range/Units 18:21 17:45 16:40 WBC (4.8-10.8) K/ul RBC (4.20-5.40) M/uL Hgb (12.0-16.0) g/dl POC Hgb (12.0-16.0) g/dl Hct (37.0-47.0) % POC Hct (37-47) % MCV (80.0-100.0) fL MCH (25.0-34.0) pg MCHC (32.0-36.0) g/dL RDW Std Deviation (36.4-46.3) fL RDW Coeff of Loni (11.5-14.5) % Plt Count (130-400) K/uL MPV (9.4-12.4) fL Immature Gran % (Auto) % Neut % (Auto) % Lymph % (Auto) % [place] % (Auto) % Eos % (Auto) % Baso % (Auto) % Neut # (Auto) (1.40-6.50) K/uL Lymph # (Auto) (1.2-3.4) K/uL [place] # (Auto) (0.11-0.59) K/uL Eos # (Auto) (0-0.50) K/uL Baso # (Auto) (0-0.2) K/uL Immature Gran # (Auto) (0.01-0.20) K/uL PT (9.0-12.0) Seconds INR (0.9-1.1) APTT (21.0-31.0) Seconds PTT Ratio Fibrinogen (184-400) mg/dl ABG pH (7.35-7.45) ABG pCO2 (35-46) mmHg ABG pO2 (80-95) mmHg ABG HCO3 (19-24) mmol/L ABG O2 Saturation (90-95) % ABG Base Excess (-9-1.8) mEq/L Rai Test (Pos) Oxygen Given POC Sodium (135-144) mmol/L Sodium (136-145) mmol/L POC Potassium (3.3-5.0) mmol/L Potassium (3.5-5.1) mmol/L POC Chloride (101-112) mmol/L Chloride (98-107) mmol/L Carbon Dioxide (21-32) mmol/L POC Total CO2 (24-31) mmol/L Anion Gap (3-11) POC Anion Gap (16-25) mmol/L POC BUN (7-18) mg/dl BUN (6-23) mg/dl Creatinine (0.6-1.2) mg/dl POC Creatinine (0.6-1.3) mg/dl Est Cr Clr Drug Dosing ml/min Est GFR ( Amer) ml/min Est GFR (Non-Af Amer) ml/min BUN/Creatinine Ratio (10-20) Glucose (70-99(Fasting)) mg/dl POC Glucose 157 H (70-99) mg/dl POC Glucose (other) (70-99) mg/dl Lactate (0.4-2.0) mmol/L Calcium (8.5-10.1) mg/dl POC Ioniz Calcium Keren (1.12-1.32) mmol/l Phosphorus (2.5-4.9) mg/dl Magnesium (1.7-2.4) mg/dl Total Bilirubin (0.2-1.0) mg/dl Direct Bilirubin (0-0.2) mg/dl AST (13-39) U/L ALT (7-52) U/L Alkaline Phosphatase (34-104) U/L Troponin I High Sens (0-14) pg/ml Total Protein (6.0-8.3) gm/dl Albumin (3.4-5.0) gm/dl Globulin (2.5-4.0) gm/dl Albumin/Globulin Ratio (0.9-2) Procalcitonin (0-0.5) ng/ml Urine Color Yellow Urine Appearance Turbid A (Clear) Urine pH 5.0 (4.5-7.5) Ur Specific [place] 1.025 (1.000-1.030) Urine Protein 2+ H (Negative) Urine Glucose (UA) Negative (Negative) Urine Ketones Trace H (Negative) Urine Blood 2+ H (Negative) Urine Nitrite Negative (Negative) Urine Bilirubin Negative (Negative) Urine Urobilinogen Negative (Negative) Ur Leukocyte Esterase Negative (Negative) Urine WBC (Auto) 10-30 H (0-5) /hpf Urine RBC (Auto) 0-4 (0-4) /hpf U Hyaline Cast (Auto) 1-5 (0-5) /lpf U Epithel Cells (Auto) >30 H (0-5) /lpf Urine Bacteria (Auto) Negative (Negative) Ur Renal Epithelial Cell Not Reportable Granular Casts 10-20 H (0) /lpf Urine Yeast Not Reportable Nasal Screen MRSA (PCR) Negative (Negative) Stl C. cayetanensis PCR (NotDetected) Stool Rotavirus A PCR (NotDetected) Stl Adenov F 40/41 PCR (NotDetected) Stool Astrovirus (PCR) (NotDetected) Stool Campylobacter PCR (NotDetected) Stl C. diff Tox B Gene (Neg) Stool Cryptosporidium PCR (NotDetected) Stl E.coli Shiga Tox PCR (NotDetected) Stl Enterotoxigenic E PCR (NotDetected) Stool EPEC (PCR) (NotDetected) Stool EAEC (PCR) (NotDetected) Stl E. histolytica PCR (NotDetected) Stool Giardia Lamblia PCR (NotDetected) Stool Salmonella PCR (NotDetected) Stool Sapovirus (PCR) (NotDetected) Stl P. shigelloides PCR (NotDetected) Stl Shigella/EIEC PCR (NotDetected) St Y.enterocolitica PCR (NotDetected) Stool Vibrio (PCR) (NotDetected) Stl Vibrio cholerae PCR (NotDetected) Stl Norovirus GI/GII PCR (NotDetected) Random Vancomycin (10-20) mcg/ml Adenovirus (PCR) (NotDetected) B. pertussis DNA (PCR) (NotDetected) B.parapertussis DNA PCR (NotDetected) C. pneumoniae DNA (PCR) (NotDetected) Coronavirus OC43 (PCR) (NotDetected) Coronavirus HKU1 (PCR) (NotDetected) Coronavirus 229E (PCR) (NotDetected) SARS-CoV-2 (PCR) (NotDetected) Coronavirus NL63 (PCR) (NotDetected) Human Metapneumovir PCR (NotDetected) Influenza Type A (PCR) (NotDetected) Influenza Type B (PCR) (NotDetected) M. pneumoniae (PCR) (NotDetected) Parainfluenza 1 (PCR) (NotDetected) Parainfluenza 2 (PCR) (NotDetected) Parainfluenza 3 (PCR) (NotDetected) Parainfluenza 4 (PCR) (NotDetected) RSV (PCR) (NotDetected) Entero/Rhino (PCR) (NotDetected) Blood Type Antibody Screen 05/07/22 05/07/22 05/07/22 Range/Units 15:38 15:38 13:45 WBC (4.8-10.8) K/ul RBC (4.20-5.40) M/uL Hgb (12.0-16.0) g/dl POC Hgb (12.0-16.0) g/dl Hct (37.0-47.0) % POC Hct (37-47) % MCV (80.0-100.0) fL MCH (25.0-34.0) pg MCHC (32.0-36.0) g/dL RDW Std Deviation (36.4-46.3) fL RDW Coeff of Loni (11.5-14.5) % Plt Count (130-400) K/uL MPV (9.4-12.4) fL Immature Gran % (Auto) % Neut % (Auto) % Lymph % (Auto) % [place] % (Auto) % Eos % (Auto) % Baso % (Auto) % Neut # (Auto) (1.40-6.50) K/uL Lymph # (Auto) (1.2-3.4) K/uL [place] # (Auto) (0.11-0.59) K/uL Eos # (Auto) (0-0.50) K/uL Baso # (Auto) (0-0.2) K/uL Immature Gran # (Auto) (0.01-0.20) K/uL PT 11.6 (9.0-12.0) Seconds INR 1.1 (0.9-1.1) APTT 26.2 (21.0-31.0) Seconds PTT Ratio 1.0 Fibrinogen 472 H (184-400) mg/dl ABG pH (7.35-7.45) ABG pCO2 (35-46) mmHg ABG pO2 (80-95) mmHg ABG HCO3 (19-24) mmol/L ABG O2 Saturation (90-95) % ABG Base Excess (-9-1.8) mEq/L Rai Test (Pos) Oxygen Given POC Sodium (135-144) mmol/L Sodium 141 (136-145) mmol/L POC Potassium (3.3-5.0) mmol/L Potassium 3.6 (3.5-5.1) mmol/L POC Chloride (101-112) mmol/L Chloride 109 H (98-107) mmol/L Carbon Dioxide 18 L (21-32) mmol/L POC Total CO2 (24-31) mmol/L Anion Gap 14 H (3-11) POC Anion Gap (16-25) mmol/L POC BUN (7-18) mg/dl BUN 34 H (6-23) mg/dl Creatinine 2.73 H D (0.6-1.2) mg/dl POC Creatinine (0.6-1.3) mg/dl Est Cr Clr Drug Dosing 24.9 ml/min Est GFR ( Amer) 20.3 ml/min Est GFR (Non-Af Amer) 17.5 ml/min BUN/Creatinine Ratio 12.5 (10-20) Glucose 136 H (70-99(Fasting)) mg/dl POC Glucose (70-99) mg/dl POC Glucose (other) (70-99) mg/dl Lactate 2.5 H* (0.4-2.0) mmol/L Calcium 8.9 (8.5-10.1) mg/dl POC Ioniz Calcium Keren (1.12-1.32) mmol/l Phosphorus (2.5-4.9) mg/dl Magnesium (1.7-2.4) mg/dl Total Bilirubin (0.2-1.0) mg/dl Direct Bilirubin (0-0.2) mg/dl AST (13-39) U/L ALT (7-52) U/L Alkaline Phosphatase (34-104) U/L Troponin I High Sens 103.5 H* (0-14) pg/ml Total Protein (6.0-8.3) gm/dl Albumin (3.4-5.0) gm/dl Globulin (2.5-4.0) gm/dl Albumin/Globulin Ratio (0.9-2) Procalcitonin (0-0.5) ng/ml Urine Color Urine Appearance (Clear) Urine pH (4.5-7.5) Ur Specific [place] (1.000-1.030) Urine Protein (Negative) Urine Glucose (UA) (Negative) Urine Ketones (Negative) Urine Blood (Negative) Urine Nitrite (Negative) Urine Bilirubin (Negative) Urine Urobilinogen (Negative) Ur Leukocyte Esterase (Negative) Urine WBC (Auto) (0-5) /hpf Urine RBC (Auto) (0-4) /hpf U Hyaline Cast (Auto) (0-5) /lpf U Epithel Cells (Auto) (0-5) /lpf Urine Bacteria (Auto) (Negative) Ur Renal Epithelial Cell Granular Casts (0) /lpf Urine Yeast Nasal Screen MRSA (PCR) (Negative) Stl C. cayetanensis PCR (NotDetected) Stool Rotavirus A PCR (NotDetected) Stl Adenov F 40/41 PCR (NotDetected) Stool Astrovirus (PCR) (NotDetected) Stool Campylobacter PCR (NotDetected) Stl C. diff Tox B Gene (Neg) Stool Cryptosporidium PCR (NotDetected) Stl E.coli Shiga Tox PCR (NotDetected) Stl Enterotoxigenic E PCR (NotDetected) Stool EPEC (PCR) (NotDetected) Stool EAEC (PCR) (NotDetected) Stl E. histolytica PCR (NotDetected) Stool Giardia Lamblia PCR (NotDetected) Stool Salmonella PCR (NotDetected) Stool Sapovirus (PCR) (NotDetected) Stl P. shigelloides PCR (NotDetected) Stl Shigella/EIEC PCR (NotDetected) St Y.enterocolitica PCR (NotDetected) Stool Vibrio (PCR) (NotDetected) Stl Vibrio cholerae PCR (NotDetected) Stl Norovirus GI/GII PCR (NotDetected) Random Vancomycin (10-20) mcg/ml Adenovirus (PCR) (NotDetected) B. pertussis DNA (PCR) (NotDetected) B.parapertussis DNA PCR (NotDetected) C. pneumoniae DNA (PCR) (NotDetected) Coronavirus OC43 (PCR) (NotDetected) Coronavirus HKU1 (PCR) (NotDetected) Coronavirus 229E (PCR) (NotDetected) SARS-CoV-2 (PCR) (NotDetected) Coronavirus NL63 (PCR) (NotDetected) Human Metapneumovir PCR (NotDetected) Influenza Type A (PCR) (NotDetected) Influenza Type B (PCR) (NotDetected) M. pneumoniae (PCR) (NotDetected) Parainfluenza 1 (PCR) (NotDetected) Parainfluenza 2 (PCR) (NotDetected) Parainfluenza 3 (PCR) (NotDetected) Parainfluenza 4 (PCR) (NotDetected) RSV (PCR) (NotDetected) Entero/Rhino (PCR) (NotDetected) Blood Type Antibody Screen 05/07/22 05/07/22 05/07/22 Range/Units 13:05 11:52 11:47 WBC (4.8-10.8) K/ul RBC (4.20-5.40) M/uL Hgb (12.0-16.0) g/dl POC Hgb 15.0 (12.0-16.0) g/dl Hct (37.0-47.0) % POC Hct 44 (37-47) % MCV (80.0-100.0) fL MCH (25.0-34.0) pg MCHC (32.0-36.0) g/dL RDW Std Deviation (36.4-46.3) fL RDW Coeff of Loni (11.5-14.5) % Plt Count (130-400) K/uL MPV (9.4-12.4) fL Immature Gran % (Auto) % Neut % (Auto) % Lymph % (Auto) % [place] % (Auto) % Eos % (Auto) % Baso % (Auto) % Neut # (Auto) (1.40-6.50) K/uL Lymph # (Auto) (1.2-3.4) K/uL [place] # (Auto) (0.11-0.59) K/uL Eos # (Auto) (0-0.50) K/uL Baso # (Auto) (0-0.2) K/uL Immature Gran # (Auto) (0.01-0.20) K/uL PT (9.0-12.0) Seconds INR (0.9-1.1) APTT (21.0-31.0) Seconds PTT Ratio Fibrinogen (184-400) mg/dl ABG pH 7.39 (7.35-7.45) ABG pCO2 23 L (35-46) mmHg ABG pO2 86 (80-95) mmHg ABG HCO3 14 L (19-24) mmol/L ABG O2 Saturation 97.3 H (90-95) % ABG Base Excess -9.0 (-9-1.8) mEq/L Rai Test Pos (Pos) Oxygen Given 2L POC Sodium 146 H (135-144) mmol/L Sodium (136-145) mmol/L POC Potassium 3.2 L (3.3-5.0) mmol/L Potassium (3.5-5.1) mmol/L POC Chloride 111 (101-112) mmol/L Chloride (98-107) mmol/L Carbon Dioxide (21-32) mmol/L POC Total CO2 19 L (24-31) mmol/L Anion Gap (3-11) POC Anion Gap 20.0 (16-25) mmol/L POC BUN 32 H (7-18) mg/dl BUN (6-23) mg/dl Creatinine (0.6-1.2) mg/dl POC Creatinine 2.7 H (0.6-1.3) mg/dl Est Cr Clr Drug Dosing ml/min Est GFR ( Amer) ml/min Est GFR (Non-Af Amer) ml/min BUN/Creatinine Ratio (10-20) Glucose (70-99(Fasting)) mg/dl POC Glucose 168 H (70-99) mg/dl POC Glucose (other) 138 H (70-99) mg/dl Lactate (0.4-2.0) mmol/L Calcium (8.5-10.1) mg/dl POC Ioniz Calcium Keren 1.17 (1.12-1.32) mmol/l Phosphorus (2.5-4.9) mg/dl Magnesium (1.7-2.4) mg/dl Total Bilirubin (0.2-1.0) mg/dl Direct Bilirubin (0-0.2) mg/dl AST (13-39) U/L ALT (7-52) U/L Alkaline Phosphatase (34-104) U/L Troponin I High Sens (0-14) pg/ml Total Protein (6.0-8.3) gm/dl Albumin (3.4-5.0) gm/dl Globulin (2.5-4.0) gm/dl Albumin/Globulin Ratio (0.9-2) Procalcitonin (0-0.5) ng/ml Urine Color Urine Appearance (Clear) Urine pH (4.5-7.5) Ur Specific [place] (1.000-1.030) Urine Protein (Negative) Urine Glucose (UA) (Negative) Urine Ketones (Negative) Urine Blood (Negative) Urine Nitrite (Negative) Urine Bilirubin (Negative) Urine Urobilinogen (Negative) Ur Leukocyte Esterase (Negative) Urine WBC (Auto) (0-5) /hpf Urine RBC (Auto) (0-4) /hpf U Hyaline Cast (Auto) (0-5) /lpf U Epithel Cells (Auto) (0-5) /lpf Urine Bacteria (Auto) (Negative) Ur Renal Epithelial Cell Granular Casts (0) /lpf Urine Yeast Nasal Screen MRSA (PCR) (Negative) Stl C. cayetanensis PCR (NotDetected) Stool Rotavirus A PCR (NotDetected) Stl Adenov F 40/41 PCR (NotDetected) Stool Astrovirus (PCR) (NotDetected) Stool Campylobacter PCR (NotDetected) Stl C. diff Tox B Gene (Neg) Stool Cryptosporidium PCR (NotDetected) Stl E.coli Shiga Tox PCR (NotDetected) Stl Enterotoxigenic E PCR (NotDetected) Stool EPEC (PCR) (NotDetected) Stool EAEC (PCR) (NotDetected) Stl E. histolytica PCR (NotDetected) Stool Giardia Lamblia PCR (NotDetected) Stool Salmonella PCR (NotDetected) Stool Sapovirus (PCR) (NotDetected) Stl P. shigelloides PCR (NotDetected) Stl Shigella/EIEC PCR (NotDetected) St Y.enterocolitica PCR (NotDetected) Stool Vibrio (PCR) (NotDetected) Stl Vibrio cholerae PCR (NotDetected) Stl Norovirus GI/GII PCR (NotDetected) Random Vancomycin (10-20) mcg/ml Adenovirus (PCR) (NotDetected) B. pertussis DNA (PCR) (NotDetected) B.parapertussis DNA PCR (NotDetected) C. pneumoniae DNA (PCR) (NotDetected) Coronavirus OC43 (PCR) (NotDetected) Coronavirus HKU1 (PCR) (NotDetected) Coronavirus 229E (PCR) (NotDetected) SARS-CoV-2 (PCR) (NotDetected) Coronavirus NL63 (PCR) (NotDetected) Human Metapneumovir PCR (NotDetected) Influenza Type A (PCR) (NotDetected) Influenza Type B (PCR) (NotDetected) M. pneumoniae (PCR) (NotDetected) Parainfluenza 1 (PCR) (NotDetected) Parainfluenza 2 (PCR) (NotDetected) Parainfluenza 3 (PCR) (NotDetected) Parainfluenza 4 (PCR) (NotDetected) RSV (PCR) (NotDetected) Entero/Rhino (PCR) (NotDetected) Blood Type Antibody Screen 05/07/22 05/07/22 05/07/22 Range/Units 11:46 11:40 11:40 WBC (4.8-10.8) K/ul RBC (4.20-5.40) M/uL Hgb (12.0-16.0) g/dl POC Hgb (12.0-16.0) g/dl Hct (37.0-47.0) % POC Hct (37-47) % MCV (80.0-100.0) fL MCH (25.0-34.0) pg MCHC (32.0-36.0) g/dL RDW Std Deviation (36.4-46.3) fL RDW Coeff of Loni (11.5-14.5) % Plt Count (130-400) K/uL MPV (9.4-12.4) fL Immature Gran % (Auto) % Neut % (Auto) % Lymph % (Auto) % [place] % (Auto) % Eos % (Auto) % Baso % (Auto) % Neut # (Auto) (1.40-6.50) K/uL Lymph # (Auto) (1.2-3.4) K/uL [place] # (Auto) (0.11-0.59) K/uL Eos # (Auto) (0-0.50) K/uL Baso # (Auto) (0-0.2) K/uL Immature Gran # (Auto) (0.01-0.20) K/uL PT (9.0-12.0) Seconds INR (0.9-1.1) APTT (21.0-31.0) Seconds PTT Ratio Fibrinogen (184-400) mg/dl ABG pH (7.35-7.45) ABG pCO2 (35-46) mmHg ABG pO2 (80-95) mmHg ABG HCO3 (19-24) mmol/L ABG O2 Saturation (90-95) % ABG Base Excess (-9-1.8) mEq/L Rai Test (Pos) Oxygen Given POC Sodium (135-144) mmol/L Sodium (136-145) mmol/L POC Potassium (3.3-5.0) mmol/L Potassium (3.5-5.1) mmol/L POC Chloride (101-112) mmol/L Chloride (98-107) mmol/L Carbon Dioxide (21-32) mmol/L POC Total CO2 (24-31) mmol/L Anion Gap (3-11) POC Anion Gap (16-25) mmol/L POC BUN (7-18) mg/dl BUN (6-23) mg/dl Creatinine (0.6-1.2) mg/dl POC Creatinine (0.6-1.3) mg/dl Est Cr Clr Drug Dosing ml/min Est GFR ( Amer) ml/min Est GFR (Non-Af Amer) ml/min BUN/Creatinine Ratio (10-20) Glucose (70-99(Fasting)) mg/dl POC Glucose (70-99) mg/dl POC Glucose (other) (70-99) mg/dl Lactate 4.0 H* (0.4-2.0) mmol/L Calcium (8.5-10.1) mg/dl POC Ioniz Calcium Keren (1.12-1.32) mmol/l Phosphorus (2.5-4.9) mg/dl Magnesium (1.7-2.4) mg/dl Total Bilirubin (0.2-1.0) mg/dl Direct Bilirubin (0-0.2) mg/dl AST (13-39) U/L ALT (7-52) U/L Alkaline Phosphatase (34-104) U/L Troponin I High Sens (0-14) pg/ml Total Protein (6.0-8.3) gm/dl Albumin (3.4-5.0) gm/dl Globulin (2.5-4.0) gm/dl Albumin/Globulin Ratio (0.9-2) Procalcitonin 7.07 H (0-0.5) ng/ml Urine Color Urine Appearance (Clear) Urine pH (4.5-7.5) Ur Specific [place] (1.000-1.030) Urine Protein (Negative) Urine Glucose (UA) (Negative) Urine Ketones (Negative) Urine Blood (Negative) Urine Nitrite (Negative) Urine Bilirubin (Negative) Urine Urobilinogen (Negative) Ur Leukocyte Esterase (Negative) Urine WBC (Auto) (0-5) /hpf Urine RBC (Auto) (0-4) /hpf U Hyaline Cast (Auto) (0-5) /lpf U Epithel Cells (Auto) (0-5) /lpf Urine Bacteria (Auto) (Negative) Ur Renal Epithelial Cell Granular Casts (0) /lpf Urine Yeast Nasal Screen MRSA (PCR) (Negative) Stl C. cayetanensis PCR (NotDetected) Stool Rotavirus A PCR (NotDetected) Stl Adenov F 40/41 PCR (NotDetected) Stool Astrovirus (PCR) (NotDetected) Stool Campylobacter PCR (NotDetected) Stl C. diff Tox B Gene (Neg) Stool Cryptosporidium PCR (NotDetected) Stl E.coli Shiga Tox PCR (NotDetected) Stl Enterotoxigenic E PCR (NotDetected) Stool EPEC (PCR) (NotDetected) Stool EAEC (PCR) (NotDetected) Stl E. histolytica PCR (NotDetected) Stool Giardia Lamblia PCR (NotDetected) Stool Salmonella PCR (NotDetected) Stool Sapovirus (PCR) (NotDetected) Stl P. shigelloides PCR (NotDetected) Stl Shigella/EIEC PCR (NotDetected) St Y.enterocolitica PCR (NotDetected) Stool Vibrio (PCR) (NotDetected) Stl Vibrio cholerae PCR (NotDetected) Stl Norovirus GI/GII PCR (NotDetected) Random Vancomycin (10-20) mcg/ml Adenovirus (PCR) Not Detected (NotDetected) B. pertussis DNA (PCR) Not Detected (NotDetected) B.parapertussis DNA PCR Not Detected (NotDetected) C. pneumoniae DNA (PCR) Not Detected (NotDetected) Coronavirus OC43 (PCR) Not Detected (NotDetected) Coronavirus HKU1 (PCR) Not Detected (NotDetected) Coronavirus 229E (PCR) Not Detected (NotDetected) SARS-CoV-2 (PCR) DETECTED A* (NotDetected) Coronavirus NL63 (PCR) Not Detected (NotDetected) Human Metapneumovir PCR Not Detected (NotDetected) Influenza Type A (PCR) Not Detected (NotDetected) Influenza Type B (PCR) Not Detected (NotDetected) M. pneumoniae (PCR) Not Detected (NotDetected) Parainfluenza 1 (PCR) Not Detected (NotDetected) Parainfluenza 2 (PCR) Not Detected (NotDetected) Parainfluenza 3 (PCR) Not Detected (NotDetected) Parainfluenza 4 (PCR) Not Detected (NotDetected) RSV (PCR) Not Detected (NotDetected) Entero/Rhino (PCR) Not Detected (NotDetected) Blood Type Antibody Screen 05/07/22 05/07/22 05/07/22 Range/Units 11:40 11:40 11:38 WBC 9.33 (4.8-10.8) K/ul RBC 5.63 H (4.20-5.40) M/uL Hgb 17.2 H (12.0-16.0) g/dl POC Hgb (12.0-16.0) g/dl Hct 50.7 H (37.0-47.0) % POC Hct (37-47) % MCV 90.1 (80.0-100.0) fL MCH 30.6 (25.0-34.0) pg MCHC 33.9 (32.0-36.0) g/dL RDW Std Deviation 47.6 H (36.4-46.3) fL RDW Coeff of Loni 14.3 (11.5-14.5) % Plt Count 266 (130-400) K/uL MPV 11.6 (9.4-12.4) fL Immature Gran % (Auto) 0.4 % Neut % (Auto) 68.7 % Lymph % (Auto) 11.3 % [place] % (Auto) 19.2 % Eos % (Auto) 0.1 % Baso % (Auto) 0.3 % Neut # (Auto) 6.41 (1.40-6.50) K/uL Lymph # (Auto) 1.05 L (1.2-3.4) K/uL [place] # (Auto) 1.79 H (0.11-0.59) K/uL Eos # (Auto) 0.01 (0-0.50) K/uL Baso # (Auto) 0.03 (0-0.2) K/uL Immature Gran # (Auto) 0.04 (0.01-0.20) K/uL PT (9.0-12.0) Seconds INR (0.9-1.1) APTT (21.0-31.0) Seconds PTT Ratio Fibrinogen (184-400) mg/dl ABG pH (7.35-7.45) ABG pCO2 (35-46) mmHg ABG pO2 (80-95) mmHg ABG HCO3 (19-24) mmol/L ABG O2 Saturation (90-95) % ABG Base Excess (-9-1.8) mEq/L Rai Test (Pos) Oxygen Given POC Sodium (135-144) mmol/L Sodium 140 (136-145) mmol/L POC Potassium (3.3-5.0) mmol/L Potassium 3.6 (3.5-5.1) mmol/L POC Chloride (101-112) mmol/L Chloride 106 (98-107) mmol/L Carbon Dioxide 17 L (21-32) mmol/L POC Total CO2 (24-31) mmol/L Anion Gap 17 H (3-11) POC Anion Gap (16-25) mmol/L POC BUN (7-18) mg/dl BUN 36 H (6-23) mg/dl Creatinine 3.22 H (0.6-1.2) mg/dl POC Creatinine (0.6-1.3) mg/dl Est Cr Clr Drug Dosing 21.1 ml/min Est GFR ( Amer) 16.7 ml/min Est GFR (Non-Af Amer) 14.4 ml/min BUN/Creatinine Ratio 11.2 (10-20) Glucose 170 H (70-99(Fasting)) mg/dl POC Glucose (70-99) mg/dl POC Glucose (other) (70-99) mg/dl Lactate (0.4-2.0) mmol/L Calcium 9.0 (8.5-10.1) mg/dl POC Ioniz Calcium Keren (1.12-1.32) mmol/l Phosphorus (2.5-4.9) mg/dl Magnesium 1.7 (1.7-2.4) mg/dl Total Bilirubin 0.6 (0.2-1.0) mg/dl Direct Bilirubin 0.1 (0-0.2) mg/dl AST 39 (13-39) U/L ALT 24 (7-52) U/L Alkaline Phosphatase 74 (34-104) U/L Troponin I High Sens 88.0 H* (0-14) pg/ml Total Protein 7.1 (6.0-8.3) gm/dl Albumin 3.9 (3.4-5.0) gm/dl Globulin (2.5-4.0) gm/dl Albumin/Globulin Ratio (0.9-2) Procalcitonin (0-0.5) ng/ml Urine Color Urine Appearance (Clear) Urine pH (4.5-7.5) Ur Specific [place] (1.000-1.030) Urine Protein (Negative) Urine Glucose (UA) (Negative) Urine Ketones (Negative) Urine Blood (Negative) Urine Nitrite (Negative) Urine Bilirubin (Negative) Urine Urobilinogen (Negative) Ur Leukocyte Esterase (Negative) Urine WBC (Auto) (0-5) /hpf Urine RBC (Auto) (0-4) /hpf U Hyaline Cast (Auto) (0-5) /lpf U Epithel Cells (Auto) (0-5) /lpf Urine Bacteria (Auto) (Negative) Ur Renal Epithelial Cell Granular Casts (0) /lpf Urine Yeast Nasal Screen MRSA (PCR) (Negative) Stl C. cayetanensis PCR (NotDetected) Stool Rotavirus A PCR (NotDetected) Stl Adenov F 40/41 PCR (NotDetected) Stool Astrovirus (PCR) (NotDetected) Stool Campylobacter PCR (NotDetected) Stl C. diff Tox B Gene (Neg) Stool Cryptosporidium PCR (NotDetected) Stl E.coli Shiga Tox PCR (NotDetected) Stl Enterotoxigenic E PCR (NotDetected) Stool EPEC (PCR) (NotDetected) Stool EAEC (PCR) (NotDetected) Stl E. histolytica PCR (NotDetected) Stool Giardia Lamblia PCR (NotDetected) Stool Salmonella PCR (NotDetected) Stool Sapovirus (PCR) (NotDetected) Stl P. shigelloides PCR (NotDetected) Stl Shigella/EIEC PCR (NotDetected) St Y.enterocolitica PCR (NotDetected) Stool Vibrio (PCR) (NotDetected) Stl Vibrio cholerae PCR (NotDetected) Stl Norovirus GI/GII PCR (NotDetected) Random Vancomycin (10-20) mcg/ml Adenovirus (PCR) (NotDetected) B. pertussis DNA (PCR) (NotDetected) B.parapertussis DNA PCR (NotDetected) C. pneumoniae DNA (PCR) (NotDetected) Coronavirus OC43 (PCR) (NotDetected) Coronavirus HKU1 (PCR) (NotDetected) Coronavirus 229E (PCR) (NotDetected) SARS-CoV-2 (PCR) (NotDetected) Coronavirus NL63 (PCR) (NotDetected) Human Metapneumovir PCR (NotDetected) Influenza Type A (PCR) (NotDetected) Influenza Type B (PCR) (NotDetected) M. pneumoniae (PCR) (NotDetected) Parainfluenza 1 (PCR) (NotDetected) Parainfluenza 2 (PCR) (NotDetected) Parainfluenza 3 (PCR) (NotDetected) Parainfluenza 4 (PCR) (NotDetected) RSV (PCR) (NotDetected) Entero/Rhino (PCR) (NotDetected) Blood Type O Positive Antibody Screen NEGATIVE 05/07/22 05/07/22 Range/Units 11:04 11:03 WBC (4.8-10.8) K/ul RBC (4.20-5.40) M/uL Hgb (12.0-16.0) g/dl POC Hgb 20.7 H* (12.0-16.0) g/dl Hct (37.0-47.0) % POC Hct 61 H* (37-47) % MCV (80.0-100.0) fL MCH (25.0-34.0) pg MCHC (32.0-36.0) g/dL RDW Std Deviation (36.4-46.3) fL RDW Coeff of Loni (11.5-14.5) % Plt Count (130-400) K/uL MPV (9.4-12.4) fL Immature Gran % (Auto) % Neut % (Auto) % Lymph % (Auto) % [place] % (Auto) % Eos % (Auto) % Baso % (Auto) % Neut # (Auto) (1.40-6.50) K/uL Lymph # (Auto) (1.2-3.4) K/uL [place] # (Auto) (0.11-0.59) K/uL Eos # (Auto) (0-0.50) K/uL Baso # (Auto) (0-0.2) K/uL Immature Gran # (Auto) (0.01-0.20) K/uL PT (9.0-12.0) Seconds INR (0.9-1.1) APTT (21.0-31.0) Seconds PTT Ratio Fibrinogen (184-400) mg/dl ABG pH (7.35-7.45) ABG pCO2 (35-46) mmHg ABG pO2 (80-95) mmHg ABG HCO3 (19-24) mmol/L ABG O2 Saturation (90-95) % ABG Base Excess (-9-1.8) mEq/L Rai Test (Pos) Oxygen Given POC Sodium 139 (135-144) mmol/L Sodium (136-145) mmol/L POC Potassium 8.4 H* (3.3-5.0) mmol/L Potassium (3.5-5.1) mmol/L POC Chloride 104 (101-112) mmol/L Chloride (98-107) mmol/L Carbon Dioxide (21-32) mmol/L POC Total CO2 22 L (24-31) mmol/L Anion Gap (3-11) POC Anion Gap 22.0 (16-25) mmol/L POC BUN 56 H (7-18) mg/dl BUN (6-23) mg/dl Creatinine (0.6-1.2) mg/dl POC Creatinine 3.1 H (0.6-1.3) mg/dl Est Cr Clr Drug Dosing ml/min Est GFR ( Amer) ml/min Est GFR (Non-Af Amer) ml/min BUN/Creatinine Ratio (10-20) Glucose (70-99(Fasting)) mg/dl POC Glucose 189 H (70-99) mg/dl POC Glucose (other) 181 H (70-99) mg/dl Lactate (0.4-2.0) mmol/L Calcium (8.5-10.1) mg/dl POC Ioniz Calcium Keren 1.06 L (1.12-1.32) mmol/l Phosphorus (2.5-4.9) mg/dl Magnesium (1.7-2.4) mg/dl Total Bilirubin (0.2-1.0) mg/dl Direct Bilirubin (0-0.2) mg/dl AST (13-39) U/L ALT (7-52) U/L Alkaline Phosphatase (34-104) U/L Troponin I High Sens (0-14) pg/ml Total Protein (6.0-8.3) gm/dl Albumin (3.4-5.0) gm/dl Globulin (2.5-4.0) gm/dl Albumin/Globulin Ratio (0.9-2) Procalcitonin (0-0.5) ng/ml Urine Color Urine Appearance (Clear) Urine pH (4.5-7.5) Ur Specific [place] (1.000-1.030) Urine Protein (Negative) Urine Glucose (UA) (Negative) Urine Ketones (Negative) Urine Blood (Negative) Urine Nitrite (Negative) Urine Bilirubin (Negative) Urine Urobilinogen (Negative) Ur Leukocyte Esterase (Negative) Urine WBC (Auto) (0-5) /hpf Urine RBC (Auto) (0-4) /hpf U Hyaline Cast (Auto) (0-5) /lpf U Epithel Cells (Auto) (0-5) /lpf Urine Bacteria (Auto) (Negative) Ur Renal Epithelial Cell Granular Casts (0) /lpf Urine Yeast Nasal Screen MRSA (PCR) (Negative) Stl C. cayetanensis PCR (NotDetected) Stool Rotavirus A PCR (NotDetected) Stl Adenov F 40/41 PCR (NotDetected) Stool Astrovirus (PCR) (NotDetected) Stool Campylobacter PCR (NotDetected) Stl C. diff Tox B Gene (Neg) Stool Cryptosporidium PCR (NotDetected) Stl E.coli Shiga Tox PCR (NotDetected) Stl Enterotoxigenic E PCR (NotDetected) Stool EPEC (PCR) (NotDetected) Stool EAEC (PCR) (NotDetected) Stl E. histolytica PCR (NotDetected) Stool Giardia Lamblia PCR (NotDetected) Stool Salmonella PCR (NotDetected) Stool Sapovirus (PCR) (NotDetected) Stl P. shigelloides PCR (NotDetected) Stl Shigella/EIEC PCR (NotDetected) St Y.enterocolitica PCR (NotDetected) Stool Vibrio (PCR) (NotDetected) Stl Vibrio cholerae PCR (NotDetected) Stl Norovirus GI/GII PCR (NotDetected) Random Vancomycin (10-20) mcg/ml Adenovirus (PCR) (NotDetected) B. pertussis DNA (PCR) (NotDetected) B.parapertussis DNA PCR (NotDetected) C. pneumoniae DNA (PCR) (NotDetected) Coronavirus OC43 (PCR) (NotDetected) Coronavirus HKU1 (PCR) (NotDetected) Coronavirus 229E (PCR) (NotDetected) SARS-CoV-2 (PCR) (NotDetected) Coronavirus NL63 (PCR) (NotDetected) Human Metapneumovir PCR (NotDetected) Influenza Type A (PCR) (NotDetected) Influenza Type B (PCR) (NotDetected) M. pneumoniae (PCR) (NotDetected) Parainfluenza 1 (PCR) (NotDetected) Parainfluenza 2 (PCR) (NotDetected) Parainfluenza 3 (PCR) (NotDetected) Parainfluenza 4 (PCR) (NotDetected) RSV (PCR) (NotDetected) Entero/Rhino (PCR) (NotDetected) Blood Type Antibody Screen Resident Activity Tracking Resident Involvement: Resident Care Provided Care Provided: Adult Hospital Medicine
[2022-05-08] MEDS: ARIPiprazole 5 MG TAB PO SCH (08:05)
[2022-05-08] MEDS: DULoxetine HCL 60 MG CAP PO SCH (08:05)
[2022-05-08] MEDS: SERTRALINE HCL 100 MG TABLET PO SCH (08:05)
[2022-05-08] MEDS: ACETAMINOPHEN 325 MG TAB PO PRN (08:06)
[2022-05-08] MEDS: GABAPENTIN 100 MG CAP PO SCH ×3 (08:06→20:12)
--- NOTE | 2022-05-08 09:00 | Billing Data ---
Date of Service May 08, 2022 Coding Level of Care Code Critical Care 1st - mins
--- NOTE | 2022-05-08 11:08 | Surgery Progress Note ---
Date of Service May 08, 2022 Assessment & Plan (1) SBO (small bowel obstruction): Plan: pt is a 67 year-old female who was admitted to ICU for septic shock, COVID infection, pneumonia, SOPHIE with CT finding SBO, IMP: SBO plan, no emergent surgery indication now, conservative treatment, NPO, IV fluid, NG tube, repeat labs and KUB in morning, will F/U, Thanks, 05/08/2022 11:[address] Aguillon F/Hilda SBO, pt has no abdominal pain, passed BM x4, NG high output 1850, continue conservative treatment, may need surgery treatment if pt's symptoms are getting worse, pt understood, I angered all questions, will F/U Admission and Anticipated Discharge Date Admission Date: May 07, 2022 Supervising Physician Co-Signing Physician Notes Dr. Hamlin was resident physician during care of patient. I separately evaluated patient for nelson portions of the history and the exam. I was present during the critical portion of medical decision making, and I discussed the case with the resident. I generally agree with the findings and plan. Weaning vasoactive medication, almost discontinued. Good urine production with decreasing creatinine, mild hypokalemia which is to be expected given small bowel obstruction which NG output is also decreasing. Troponin elevation most consistent with type II ischemia in the setting of severe dehydration. Patient does not have white count, mild fever, COVID-positive and norovirus positive. Urinalysis reviewed, blood cultures pending, urine culture obtained, no oxygen requirement. In the light of 2 viruses being positive and radiographic findings consistent with small bowel obstruction and rapid clinical improvement with volume expansion I think it is reasonable to discontinue antibiotics at this time. Recheck BMP and lactate at 2 PM. I have personally spent 35 minutes of critical care time in the direct management of this patient. This is a life/limb threatening event. This includes time spent evaluating patient, direct bedside care, chart review, placing orders, interpretation of diagnostic studies, discussion with consultants, patient, and/or family members regarding treatment decisions, as well as other required patient management activities. This time is exclusive of all separately billable procedures, and teaching time and separate from and in addition to any other critical care service time. Subjective History limited 2/2 mental status. Per nursing patient is having green diarrhea. No abdominal pain. 05/08/2022 11:[address], Aguillon F/U SBO, pt feels better, more awake, pt denies abdominal pain, BM x4, NG- 3330 Review of Systems Constitutional: as per Subjective / HPI Eyes: as per Subjective / HPI Respiratory: as per Subjective / HPI Cardiovascular: Additional Comments: HTN Gastrointestinal: constipation Genitourinary: as per Subjective / HPI Musculoskeletal: as per Subjective / HPI Neurologic: as per Subjective / HPI Psychiatric: as per Subjective / HPI Endocrine: as per Subjective / HPI Hematologic / Lymphatic: as per Subjective / HPI Physical Exam Eyes: PERRL, conjunctivae normal, anicteric sclerae Neck: trachea midline, no thyromegaly Respiratory: Auscultation: + diminished lung sounds Cardiovascular: RRR, no murmur, no edema Gastrointestinal (Abdomen): soft, NT, Nd, BS +, Neurologic: patellar DTR's 2+ bilat, sensation intact Psychiatric: A+Ox3, euthymic affect Results & Data ([facility]) Vital Signs (Past 12 Hours) Vital Signs Temp Pulse Resp BP Pulse Ox O2 Del Method O2 Flow Rate 05/08/22 10:30 37.2 C 92 H 25 H 95 05/08/22 10:00 37.3 C 92 H 25 H 96 05/08/22 09:30 37.3 C 92 H 23 98 05/08/22 09:30 132/70 05/08/22 09:00 36.9 C 105 H 31 H 92 05/08/22 08:30 37.5 C 92 H 31 H 97 05/08/22 08:30 103/76 05/08/22 08:00 37.6 C H 93 H 28 H 97 05/08/22 07:30 37.3 C 92 H 37 H 91 05/08/22 07:30 112/73 05/08/22 07:00 37.6 C H 103 H 29 H 96 05/08/22 08:00 Nasal Cannula 05/08/22 08:00 104 H 05/08/22 07:41 Nasal Cannula 2 05/08/22 06:30 37.9 C H 108 H 25 H 119/84 96 Nasal Cannula 2 05/08/22 06:00 37.9 C H 110 H 24 120/74 96 Nasal Cannula 2 05/08/22 05:30 37.7 C H 110 H 26 H 116/73 96 Nasal Cannula 2 05/08/22 05:00 37.8 C H 111 H 26 H 132/76 95 Nasal Cannula 2 05/08/22 04:30 37.9 C H 112 H 26 H 141/85 H 95 Nasal Cannula 2 05/08/22 04:00 37.9 C H 109 H 23 110/68 93 Nasal Cannula 2 05/08/22 03:30 37.9 C H 110 H 23 100/69 95 Nasal Cannula 2 05/08/22 03:00 38.0 C H 111 H 27 H 111/67 95 Nasal Cannula 2 05/08/22 02:30 38.2 C H 112 H 26 H 110/76 94 Nasal Cannula 2 05/08/22 02:00 37.6 C H 104 H 28 H 117/71 96 Nasal Cannula 2 05/08/22 01:30 37.9 C H 113 H 27 H 121/85 94 Nasal Cannula 2 05/08/22 01:00 37.9 C H 113 H 26 H 125/75 92 Nasal Cannula 2 05/08/22 00:30 38.0 C H 115 H 27 H 107/76 92 Nasal Cannula 2 05/08/22 00:01 38.4 C H 115 H 24 136/69 94 Nasal Cannula 2 05/07/22 23:30 38.5 C H 118 H 26 H 131/76 96 Nasal Cannula 2 Laboratory Results Abnormal lab results 05/07/22 05/07/22 05/07/22 Range/Units 11:03 11:04 11:40 RBC 5.63 H (4.20-5.40) M/uL Hgb 17.2 H (12.0-16.0) g/dl POC Hgb 20.7 H* (12.0-16.0) g/dl Hct 50.7 H (37.0-47.0) % POC Hct 61 H* (37-47) % RDW Std Deviation 47.6 H (36.4-46.3) fL Lymph # (Auto) 1.05 L (1.2-3.4) K/uL [place] # (Auto) 1.79 H (0.11-0.59) K/uL Fibrinogen (184-400) mg/dl ABG pCO2 (35-46) mmHg ABG HCO3 (19-24) mmol/L ABG O2 Saturation (90-95) % POC Sodium (135-144) mmol/L POC Potassium 8.4 H* (3.3-5.0) mmol/L Potassium (3.5-5.1) mmol/L Chloride (98-107) mmol/L Carbon Dioxide (21-32) mmol/L POC Total CO2 22 L (24-31) mmol/L Anion Gap (3-11) POC BUN 56 H (7-18) mg/dl BUN (6-23) mg/dl Creatinine (0.6-1.2) mg/dl POC Creatinine 3.1 H (0.6-1.3) mg/dl Glucose (70-99(Fasting)) mg/dl POC Glucose 189 H (70-99) mg/dl POC Glucose (other) 181 H (70-99) mg/dl Lactate (0.4-2.0) mmol/L Calcium (8.5-10.1) mg/dl POC Ioniz Calcium Keren 1.06 L (1.12-1.32) mmol/l Troponin I High Sens (0-14) pg/ml Total Protein (6.0-8.3) gm/dl Albumin (3.4-5.0) gm/dl Procalcitonin (0-0.5) ng/ml Urine Appearance (Clear) Urine Protein (Negative) Urine Ketones (Negative) Urine Blood (Negative) Urine WBC (Auto) (0-5) /hpf U Epithel Cells (Auto) (0-5) /lpf Granular Casts (0) /lpf Stl Norovirus GI/GII PCR (NotDetected) Random Vancomycin (10-20) mcg/ml SARS-CoV-2 (PCR) (NotDetected) 05/07/22 05/07/22 05/07/22 Range/Units 11:40 11:40 11:40 RBC (4.20-5.40) M/uL Hgb (12.0-16.0) g/dl POC Hgb (12.0-16.0) g/dl Hct (37.0-47.0) % POC Hct (37-47) % RDW Std Deviation (36.4-46.3) fL Lymph # (Auto) (1.2-3.4) K/uL [place] # (Auto) (0.11-0.59) K/uL Fibrinogen (184-400) mg/dl ABG pCO2 (35-46) mmHg ABG HCO3 (19-24) mmol/L ABG O2 Saturation (90-95) % POC Sodium (135-144) mmol/L POC Potassium (3.3-5.0) mmol/L Potassium (3.5-5.1) mmol/L Chloride (98-107) mmol/L Carbon Dioxide 17 L (21-32) mmol/L POC Total CO2 (24-31) mmol/L Anion Gap 17 H (3-11) POC BUN (7-18) mg/dl BUN 36 H (6-23) mg/dl Creatinine 3.22 H (0.6-1.2) mg/dl POC Creatinine (0.6-1.3) mg/dl Glucose 170 H (70-99(Fasting)) mg/dl POC Glucose (70-99) mg/dl POC Glucose (other) (70-99) mg/dl Lactate 4.0 H* (0.4-2.0) mmol/L Calcium (8.5-10.1) mg/dl POC Ioniz Calcium Keren (1.12-1.32) mmol/l Troponin I High Sens 88.0 H* (0-14) pg/ml Total Protein (6.0-8.3) gm/dl Albumin (3.4-5.0) gm/dl Procalcitonin 7.07 H (0-0.5) ng/ml Urine Appearance (Clear) Urine Protein (Negative) Urine Ketones (Negative) Urine Blood (Negative) Urine WBC (Auto) (0-5) /hpf U Epithel Cells (Auto) (0-5) /lpf Granular Casts (0) /lpf Stl Norovirus GI/GII PCR (NotDetected) Random Vancomycin (10-20) mcg/ml SARS-CoV-2 (PCR) (NotDetected) 05/07/22 05/07/22 05/07/22 Range/Units 11:46 11:47 11:52 RBC (4.20-5.40) M/uL Hgb (12.0-16.0) g/dl POC Hgb (12.0-16.0) g/dl Hct (37.0-47.0) % POC Hct (37-47) % RDW Std Deviation (36.4-46.3) fL Lymph # (Auto) (1.2-3.4) K/uL [place] # (Auto) (0.11-0.59) K/uL Fibrinogen (184-400) mg/dl ABG pCO2 23 L (35-46) mmHg ABG HCO3 14 L (19-24) mmol/L ABG O2 Saturation 97.3 H (90-95) % POC Sodium (135-144) mmol/L POC Potassium (3.3-5.0) mmol/L Potassium (3.5-5.1) mmol/L Chloride (98-107) mmol/L Carbon Dioxide (21-32) mmol/L POC Total CO2 (24-31) mmol/L Anion Gap (3-11) POC BUN (7-18) mg/dl BUN (6-23) mg/dl Creatinine (0.6-1.2) mg/dl POC Creatinine (0.6-1.3) mg/dl Glucose (70-99(Fasting)) mg/dl POC Glucose 168 H (70-99) mg/dl POC Glucose (other) (70-99) mg/dl Lactate (0.4-2.0) mmol/L Calcium (8.5-10.1) mg/dl POC Ioniz Calcium Keren (1.12-1.32) mmol/l Troponin I High Sens (0-14) pg/ml Total Protein (6.0-8.3) gm/dl Albumin (3.4-5.0) gm/dl Procalcitonin (0-0.5) ng/ml Urine Appearance (Clear) Urine Protein (Negative) Urine Ketones (Negative) Urine Blood (Negative) Urine WBC (Auto) (0-5) /hpf U Epithel Cells (Auto) (0-5) /lpf Granular Casts (0) /lpf Stl Norovirus GI/GII PCR (NotDetected) Random Vancomycin (10-20) mcg/ml SARS-CoV-2 (PCR) DETECTED A* (NotDetected) 05/07/22 05/07/22 05/07/22 Range/Units 13:05 13:45 15:38 RBC (4.20-5.40) M/uL Hgb (12.0-16.0) g/dl POC Hgb (12.0-16.0) g/dl Hct (37.0-47.0) % POC Hct (37-47) % RDW Std Deviation (36.4-46.3) fL Lymph # (Auto) (1.2-3.4) K/uL [place] # (Auto) (0.11-0.59) K/uL Fibrinogen (184-400) mg/dl ABG pCO2 (35-46) mmHg ABG HCO3 (19-24) mmol/L ABG O2 Saturation (90-95) % POC Sodium 146 H (135-144) mmol/L POC Potassium 3.2 L (3.3-5.0) mmol/L Potassium (3.5-5.1) mmol/L Chloride 109 H (98-107) mmol/L Carbon Dioxide 18 L (21-32) mmol/L POC Total CO2 19 L (24-31) mmol/L Anion Gap 14 H (3-11) POC BUN 32 H (7-18) mg/dl BUN 34 H (6-23) mg/dl Creatinine 2.73 H D (0.6-1.2) mg/dl POC Creatinine 2.7 H (0.6-1.3) mg/dl Glucose 136 H (70-99(Fasting)) mg/dl POC Glucose (70-99) mg/dl POC Glucose (other) 138 H (70-99) mg/dl Lactate 2.5 H* (0.4-2.0) mmol/L Calcium (8.5-10.1) mg/dl POC Ioniz Calcium Keren (1.12-1.32) mmol/l Troponin I High Sens 103.5 H* (0-14) pg/ml Total Protein (6.0-8.3) gm/dl Albumin (3.4-5.0) gm/dl Procalcitonin (0-0.5) ng/ml Urine Appearance (Clear) Urine Protein (Negative) Urine Ketones (Negative) Urine Blood (Negative) Urine WBC (Auto) (0-5) /hpf U Epithel Cells (Auto) (0-5) /lpf Granular Casts (0) /lpf Stl Norovirus GI/GII PCR (NotDetected) Random Vancomycin (10-20) mcg/ml SARS-CoV-2 (PCR) (NotDetected) 05/07/22 05/07/22 05/07/22 Range/Units 15:38 17:45 18:21 RBC (4.20-5.40) M/uL Hgb (12.0-16.0) g/dl POC Hgb (12.0-16.0) g/dl Hct (37.0-47.0) % POC Hct (37-47) % RDW Std Deviation (36.4-46.3) fL Lymph # (Auto) (1.2-3.4) K/uL [place] # (Auto) (0.11-0.59) K/uL Fibrinogen 472 H (184-400) mg/dl ABG pCO2 (35-46) mmHg ABG HCO3 (19-24) mmol/L ABG O2 Saturation (90-95) % POC Sodium (135-144) mmol/L POC Potassium (3.3-5.0) mmol/L Potassium (3.5-5.1) mmol/L Chloride (98-107) mmol/L Carbon Dioxide (21-32) mmol/L POC Total CO2 (24-31) mmol/L Anion Gap (3-11) POC BUN (7-18) mg/dl BUN (6-23) mg/dl Creatinine (0.6-1.2) mg/dl POC Creatinine (0.6-1.3) mg/dl Glucose (70-99(Fasting)) mg/dl POC Glucose 157 H (70-99) mg/dl POC Glucose (other) (70-99) mg/dl Lactate (0.4-2.0) mmol/L Calcium (8.5-10.1) mg/dl POC Ioniz Calcium Keren (1.12-1.32) mmol/l Troponin I High Sens (0-14) pg/ml Total Protein (6.0-8.3) gm/dl Albumin (3.4-5.0) gm/dl Procalcitonin (0-0.5) ng/ml Urine Appearance Turbid A (Clear) Urine Protein 2+ H (Negative) Urine Ketones Trace H (Negative) Urine Blood 2+ H (Negative) Urine WBC (Auto) 10-30 H (0-5) /hpf U Epithel Cells (Auto) >30 H (0-5) /lpf Granular Casts 10-20 H (0) /lpf Stl Norovirus GI/GII PCR (NotDetected) Random Vancomycin (10-20) mcg/ml SARS-CoV-2 (PCR) (NotDetected) 05/07/22 05/07/22 05/08/22 Range/Units 21:50 23:54 04:14 RBC (4.20-5.40) M/uL Hgb (12.0-16.0) g/dl POC Hgb (12.0-16.0) g/dl Hct (37.0-47.0) % POC Hct (37-47) % RDW Std Deviation (36.4-46.3) fL Lymph # (Auto) (1.2-3.4) K/uL [place] # (Auto) (0.11-0.59) K/uL Fibrinogen (184-400) mg/dl ABG pCO2 (35-46) mmHg ABG HCO3 (19-24) mmol/L ABG O2 Saturation (90-95) % POC Sodium (135-144) mmol/L POC Potassium (3.3-5.0) mmol/L Potassium 3.1 L (3.5-5.1) mmol/L Chloride (98-107) mmol/L Carbon Dioxide (21-32) mmol/L POC Total CO2 (24-31) mmol/L Anion Gap (3-11) POC BUN (7-18) mg/dl BUN 30 H (6-23) mg/dl Creatinine 1.72 H D (0.6-1.2) mg/dl POC Creatinine (0.6-1.3) mg/dl Glucose 143 H (70-99(Fasting)) mg/dl POC Glucose 166 H (70-99) mg/dl POC Glucose (other) (70-99) mg/dl Lactate (0.4-2.0) mmol/L Calcium 7.9 L (8.5-10.1) mg/dl POC Ioniz Calcium Keren (1.12-1.32) mmol/l Troponin I High Sens (0-14) pg/ml Total Protein 5.9 L (6.0-8.3) gm/dl Albumin 3.2 L (3.4-5.0) gm/dl Procalcitonin (0-0.5) ng/ml Urine Appearance (Clear) Urine Protein (Negative) Urine Ketones (Negative) Urine Blood (Negative) Urine WBC (Auto) (0-5) /hpf U Epithel Cells (Auto) (0-5) /lpf Granular Casts (0) /lpf Stl Norovirus GI/GII PCR DETECTED A* (NotDetected) Random Vancomycin (10-20) mcg/ml SARS-CoV-2 (PCR) (NotDetected) 05/08/22 Range/Units 04:14 RBC (4.20-5.40) M/uL Hgb (12.0-16.0) g/dl POC Hgb (12.0-16.0) g/dl Hct (37.0-47.0) % POC Hct (37-47) % RDW Std Deviation (36.4-46.3) fL Lymph # (Auto) (1.2-3.4) K/uL [place] # (Auto) (0.11-0.59) K/uL Fibrinogen (184-400) mg/dl ABG pCO2 (35-46) mmHg ABG HCO3 (19-24) mmol/L ABG O2 Saturation (90-95) % POC Sodium (135-144) mmol/L POC Potassium (3.3-5.0) mmol/L Potassium (3.5-5.1) mmol/L Chloride (98-107) mmol/L Carbon Dioxide (21-32) mmol/L POC Total CO2 (24-31) mmol/L Anion Gap (3-11) POC BUN (7-18) mg/dl BUN (6-23) mg/dl Creatinine (0.6-1.2) mg/dl POC Creatinine (0.6-1.3) mg/dl Glucose (70-99(Fasting)) mg/dl POC Glucose (70-99) mg/dl POC Glucose (other) (70-99) mg/dl Lactate (0.4-2.0) mmol/L Calcium (8.5-10.1) mg/dl POC Ioniz Calcium Keren (1.12-1.32) mmol/l Troponin I High Sens (0-14) pg/ml Total Protein (6.0-8.3) gm/dl Albumin (3.4-5.0) gm/dl Procalcitonin (0-0.5) ng/ml Urine Appearance (Clear) Urine Protein (Negative) Urine Ketones (Negative) Urine Blood (Negative) Urine WBC (Auto) (0-5) /hpf U Epithel Cells (Auto) (0-5) /lpf Granular Casts (0) /lpf Stl Norovirus GI/GII PCR (NotDetected) Random Vancomycin 21.0 H (10-20) mcg/ml SARS-CoV-2 (PCR) (NotDetected) Diagnostic Findings KUB SBO
--- NOTE | 2022-05-08 11:15 | XRay Report ---
KUB CLINICAL HISTORY: Small bowel obstruction. FINDINGS: 2 AP comment portable, supine abdominal radiographs are correlated with abdominal CT dated 05/07/2022. An enteric tube projects below the diaphragm over the stomach. Cholecystectomy clips are no koko in the right upper quadrant. There is persistent small bowel obstruction. Distended gas-filled sm all bowel loops measure up to 5.5 cm in diameter. No evidence of intraperitoneal free air is seen on these supine images. There are no abnormal abdominal calcifications. An IVC filter is in place. The s keletal structures are osteopenic. Degenerative change and bony overgrowth is again seen involving th e hips and pelvis. IMPRESSION: 1. Persistent high-grade small bowel obstruction. 2. An enteric tube is in place. Electronically signed by: Wilmar Stanford M.D. 05/08/2022 11:12 AM
[2022-05-08] MEDS: NOREPINEPHRINE/D5W 4 MG/250 ML PLCT IV SCH (12:09)
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
[2022-05-08 15:08] LABS: Calcium 7.6 mg/dl (8.5-10.1); Creatinine Clr Calc Pharmacy 57.4 ml/min; Est GFR (Non-African American) 48.4 ml/min; Potassium 3.6 mmol/L (3.5-5.1)
[2022-05-08] MEDS: POTASSIUM CHLORIDE / WTR 20 MEQ/100 ML PLCT IV SCH ×3 (15:56→20:12)
[2022-05-08] MEDS: AMANTADINE HCL 100 MG CAPSULE PO SCH (20:12)
[2022-05-08] MEDS: ATORVASTATIN 20 MG TAB PO SCH (20:12)
[2022-05-09] MEDS: NORMOSOL-R 1,000 ML IV SCH ×3 (03:34→23:56)
[2022-05-09 04:28] LABS: Hematocrit (blood only) 37.5 % (37.0-47.0); Hemoglobin 12.6 g/dl (12.0-16.0); Mean Corpuscular Hemoglobin 30.2 pg (25.0-34.0); Mean Corpuscular Hgb Conc 33.6 g/dL (32.0-36.0); Mean Corpuscular Volume 89.9 fL (80.0-100.0); Mean Platelet Volume 11.2 fL (9.4-12.4); Platelet Count 151 K/uL (130-400); RDW Coefficient of Variation 14.6 % (11.5-14.5); RDW Standard Deviation 48.1 fL (36.4-46.3); Red Blood Count 4.17 M/uL (4.20-5.40); White Blood Count 9.58 K/ul (4.8-10.8)
[2022-05-09 05:13] LABS: Basophils # (auto) 0.04 K/uL (0-0.2); Basophils % (auto) 0.4 %; Eosinophils # (auto) 0.11 K/uL (0-0.50); Eosinophils % (auto) 1.1 %; Immature Granulocytes # (auto) 0.02 K/uL (0.01-0.20); Immature Granulocytes % (auto) 0.2 %; Lymphocytes # (auto) 1.44 K/uL (1.2-3.4); Monocytes # (auto) 1.11 K/uL (0.11-0.59); Monocytes % (auto) 11.6 %; Neutrophils # (auto) 6.86 K/uL (1.40-6.50); Neutrophils % (auto) 71.7 %
[2022-05-09] MEDS: HEPARIN SOD 5,000 UNIT/0.5 ML VIAL SQ SCH ×3 (05:26→23:27)
[2022-05-09] MEDS: LEVOTHYROXINE SODIUM 25 MCG TABLET PO SCH (05:26)
[2022-05-09 05:36] LABS: Albumin Globulin Ratio 1.2 (0.9-2); BUN Creatinine Ratio 23.9 (10-20); Bilirubin,Total 0.8 mg/dl (0.2-1.0); Calcium 7.4 mg/dl (8.5-10.1); Creatinine Clr Calc Pharmacy 73.6 ml/min; Est GFR (African American) 75.7 ml/min; Est GFR (Non-African American) 65.3 ml/min; Globulin 2.5 gm/dl (2.5-4.0); Magnesium 2.5 mg/dl (1.7-2.4); Phosphorus 1.2 mg/dl (2.5-4.9); Potassium 3.4 mmol/L (3.5-5.1); Total Protein 5.5 gm/dl (6.0-8.3)
[2022-05-09] MEDS ORDERED: POTASSIUM PHOS 3 MMOL/1 ML INFUSION IV STA (05:39)
[2022-05-09] MEDS ORDERED: POTASSIUM PHOSPHATE 24 MMOL in SODIUM CHLORIDE 0.9% 500 ML IV ONE (06:00)
--- NOTE | 2022-05-09 07:00 | Critical Care Progress Note ---
Date of Service May 09, 2022 Assessment & Plan (1) Septic shock: Plan: 67-year-old female with history of traumatic brain injury who presents with concerns for sepsis/septic shock and COVID-19 infection now afebrile and HDS. PLAN: Neuro: History traumatic brain injury -Continue amantadine 100 mg twice daily, Abilify 5 mg every morning, duloxetine 60 mg daily, gabapentin 100 mg 3 times daily, Strattera lean 100 mg daily Resp: COVID-19 infection -Wean supplemental oxygen as tolerated CV: Tachycardia, hypotension, severe volume depletion --> resolved -Severe dehydration secondary to nausea, vomiting, and diarrhea, did briefly require vasoactives Fluids/Renal: Acute kidney injury - resolved -Normosol at 100 mL/h -Gerardo to measure urine output ID: Broad-spectrum antibiotics started in emergency department, NGTD - blood cultures and urine cultures. Patient positive for two viruses - less concern for bacterial cause of sepsis - d/c antibiotics at this time GI/Nutrition: Hyperlipidemia -Atorvastatin 60 mg nightly SBO with transition point -NG tube decompression - significant output, continue for now -Daily KUB -Gen surg on board - conservative management for now -Son denies abdominal surgical history. Norovirus -Continue with supportive care Heme: Hemoconcentration - improved History of DVT recorded in prior records, no anticoagulation medications noted on home meds DVT prophylaxis: DVT prophylaxis with heparin 5000 thrice daily Endocrine: ICU hyperglycemia protocol Presumed hypothyroidism secondary to Home medication list -Continue levothyroxine 25 mcg daily Vascular access: Right internal jugular placed in emergency department Code Status: Full code -Discussed wishes with patient's son: Sukhjinder Davis via telephone Disposition: downgrade to med/tele (2) COVID-19 virus infection: (3) Nausea vomiting and diarrhea: (4) SOPHIE (acute kidney injury): (5) Diabetes mellitus: (6) Generalized anxiety disorder: (7) Acute metabolic encephalopathy: (8) Traumatic brain injury: Admission and Anticipated Discharge Date Admission Date: May 07, 2022 Supervising Physician Co-Signing Physician Notes Dr. Hamlin was resident physician during care of patient. I separately evaluate d patient for nelson portions of the history and the exam. I was present during the critical portion of medical decision making, and I discussed the case with the resident. I generally agree with the findings and plan. Off vasoactive medication. SOPHIE resolved. NG output is also decreasing. minimal oxygen requirement covid positive. Critical care needs have largely resolved. Deferring to general surgery regarding continued conservative management versus surgical intervention for small bowel obstruction. NG output is slightly decreasing. CCM will sign off. D/W Dr. Gonsalez of [facility] medicine Subjective awake and alert, resting comfortably in bed Physical Exam Physical Exam: Gen: alert, awake, Skin: warm, dry, well perfused Head: AT NC CV: clinically well perfused Resp: no increased work of breathing MSK: no gross deformities Results & Data Results & Data ([facility]) Vital Signs (Past 12 Hours) Vital Signs Temp Pulse Resp BP Pulse Ox O2 Del Method O2 Flow Rate 05/09/22 06:00 37.1 C 85 24 96 05/09/22 05:30 37.1 C 85 24 97 05/09/22 05:30 130/69 05/09/22 05:00 37.0 C 85 21 96 05/09/22 04:30 37.0 C 84 24 95 05/09/22 04:30 129/65 05/09/22 04:00 37.1 C 85 21 95 05/09/22 03:30 37.1 C 87 23 93 05/09/22 03:30 129/69 05/09/22 03:00 37.1 C 84 18 93 05/09/22 02:30 37.2 C 85 19 93 05/09/22 02:00 37.3 C 89 20 93 05/09/22 01:30 37.3 C 88 25 H 94 05/09/22 01:30 124/85 05/09/22 01:00 37.3 C 88 23 95 05/09/22 00:30 37.3 C 89 24 96 05/09/22 00:30 135/76 05/09/22 00:00 37.3 C 88 26 H 95 05/08/22 23:30 37.3 C 89 24 95 05/08/22 23:30 121/81 05/08/22 23:00 37.3 C 89 24 94 05/08/22 22:30 37.3 C 90 24 82 L 05/08/22 22:30 117/90 05/08/22 22:00 37.1 C 87 24 95 05/09/22 00:00 88 05/08/22 21:30 37.2 C 88 24 96 05/08/22 21:30 131/67 05/08/22 21:00 37.3 C 88 25 H 96 05/08/22 20:30 37.1 C 90 22 95 05/08/22 20:30 129/78 05/08/22 20:00 37.2 C 87 25 H 95 05/08/22 19:30 37.1 C 86 26 H 94 05/08/22 19:30 115/91 05/08/22 19:00 37.0 C 87 25 H 96 05/08/22 20:00 Nasal Cannula 2 Laboratory Results 05/09/22 05/09/22 05/09/22 Range/Units 03:58 03:58 00:04 WBC 9.58 (4.8-10.8) K/ul RBC 4.17 L (4.20-5.40) M/uL Hgb 12.6 D (12.0-16.0) g/dl Hct 37.5 (37.0-47.0) % MCV 89.9 (80.0-100.0) fL MCH 30.2 (25.0-34.0) pg MCHC 33.6 (32.0-36.0) g/dL RDW Std Deviation 48.1 H (36.4-46.3) fL RDW Coeff of Loni 14.6 H (11.5-14.5) % Plt Count 151 (130-400) K/uL MPV 11.2 (9.4-12.4) fL Immature Gran % (Auto) 0.2 % Neut % (Auto) 71.7 % Lymph % (Auto) 15.0 % Coffee % (Auto) 11.6 % Eos % (Auto) 1.1 % Baso % (Auto) 0.4 % Neut # (Auto) 6.86 H (1.40-6.50) K/uL Lymph # (Auto) 1.44 (1.2-3.4) K/uL Coffee # (Auto) 1.11 H (0.11-0.59) K/uL Eos # (Auto) 0.11 (0-0.50) K/uL Baso # (Auto) 0.04 (0-0.2) K/uL Immature Gran # (Auto) 0.02 (0.01-0.20) K/uL Sodium 143 (136-145) mmol/L Potassium 3.4 L (3.5-5.1) mmol/L Chloride 107 (98-107) mmol/L Carbon Dioxide 32 (21-32) mmol/L Anion Gap 4 (3-11) BUN 22 (6-23) mg/dl Creatinine 0.92 (0.6-1.2) mg/dl Est Cr Clr Drug Dosing 73.6 ml/min Est GFR ( Amer) 75.7 ml/min Est GFR (Non-Af Amer) 65.3 ml/min BUN/Creatinine Ratio 23.9 H (10-20) Glucose 99 (70-99(Fasting)) mg/dl POC Glucose 97 (70-99) mg/dl Lactate (0.4-2.0) mmol/L Calcium 7.4 L (8.5-10.1) mg/dl Phosphorus 1.2 L* D (2.5-4.9) mg/dl Magnesium 2.5 H (1.7-2.4) mg/dl Total Bilirubin 0.8 (0.2-1.0) mg/dl AST 30 (13-39) U/L ALT 16 (7-52) U/L Alkaline Phosphatase 55 (34-104) U/L Troponin I High Sens (0-14) pg/ml Total Protein 5.5 L (6.0-8.3) gm/dl Albumin 3.0 L (3.4-5.0) gm/dl Globulin 2.5 (2.5-4.0) gm/dl Albumin/Globulin Ratio 1.2 (0.9-2) 05/08/22 05/08/22 05/08/22 Range/Units 18:11 14:07 14:07 WBC (4.8-10.8) K/ul RBC (4.20-5.40) M/uL Hgb (12.0-16.0) g/dl Hct (37.0-47.0) % MCV (80.0-100.0) fL MCH (25.0-34.0) pg MCHC (32.0-36.0) g/dL RDW Std Deviation (36.4-46.3) fL RDW Coeff of Loni (11.5-14.5) % Plt Count (130-400) K/uL MPV (9.4-12.4) fL Immature Gran % (Auto) % Neut % (Auto) % Lymph % (Auto) % Coffee % (Auto) % Eos % (Auto) % Baso % (Auto) % Neut # (Auto) (1.40-6.50) K/uL Lymph # (Auto) (1.2-3.4) K/uL Coffee # (Auto) (0.11-0.59) K/uL Eos # (Auto) (0-0.50) K/uL Baso # (Auto) (0-0.2) K/uL Immature Gran # (Auto) (0.01-0.20) K/uL Sodium (136-145) mmol/L Potassium (3.5-5.1) mmol/L Chloride (98-107) mmol/L Carbon Dioxide (21-32) mmol/L Anion Gap (3-11) BUN (6-23) mg/dl Creatinine (0.6-1.2) mg/dl Est Cr Clr Drug Dosing ml/min Est GFR ( Amer) ml/min Est GFR (Non-Af Amer) ml/min BUN/Creatinine Ratio (10-20) Glucose (70-99(Fasting)) mg/dl POC Glucose 95 (70-99) mg/dl Lactate 1.4 (0.4-2.0) mmol/L Calcium (8.5-10.1) mg/dl Phosphorus (2.5-4.9) mg/dl Magnesium (1.7-2.4) mg/dl Total Bilirubin (0.2-1.0) mg/dl AST (13-39) U/L ALT (7-52) U/L Alkaline Phosphatase (34-104) U/L Troponin I High Sens 43.0 H D (0-14) pg/ml Total Protein (6.0-8.3) gm/dl Albumin (3.4-5.0) gm/dl Globulin (2.5-4.0) gm/dl Albumin/Globulin Ratio (0.9-2) 05/08/22 05/08/22 Range/Units 14:07 11:45 WBC (4.8-10.8) K/ul RBC (4.20-5.40) M/uL Hgb (12.0-16.0) g/dl Hct (37.0-47.0) % MCV (80.0-100.0) fL MCH (25.0-34.0) pg MCHC (32.0-36.0) g/dL RDW Std Deviation (36.4-46.3) fL RDW Coeff of Loni (11.5-14.5) % Plt Count (130-400) K/uL MPV (9.4-12.4) fL Immature Gran % (Auto) % Neut % (Auto) % Lymph % (Auto) % Coffee % (Auto) % Eos % (Auto) % Baso % (Auto) % Neut # (Auto) (1.40-6.50) K/uL Lymph # (Auto) (1.2-3.4) K/uL Coffee # (Auto) (0.11-0.59) K/uL Eos # (Auto) (0-0.50) K/uL Baso # (Auto) (0-0.2) K/uL Immature Gran # (Auto) (0.01-0.20) K/uL Sodium 143 (136-145) mmol/L Potassium 3.6 (3.5-5.1) mmol/L Chloride 107 (98-107) mmol/L Carbon Dioxide 28 (21-32) mmol/L Anion Gap 8 (3-11) BUN 26 H (6-23) mg/dl Creatinine 1.18 D (0.6-1.2) mg/dl Est Cr Clr Drug Dosing 57.4 ml/min Est GFR ( Amer) 56.0 ml/min Est GFR (Non-Af Amer) 48.4 ml/min BUN/Creatinine Ratio 22.0 H (10-20) Glucose 120 H (70-99(Fasting)) mg/dl POC Glucose 116 H (70-99) mg/dl Lactate (0.4-2.0) mmol/L Calcium 7.6 L (8.5-10.1) mg/dl Phosphorus (2.5-4.9) mg/dl Magnesium (1.7-2.4) mg/dl Total Bilirubin (0.2-1.0) mg/dl AST (13-39) U/L ALT (7-52) U/L Alkaline Phosphatase (34-104) U/L Troponin I High Sens (0-14) pg/ml Total Protein (6.0-8.3) gm/dl Albumin (3.4-5.0) gm/dl Globulin (2.5-4.0) gm/dl Albumin/Globulin Ratio (0.9-2) Diagnostic Findings KUB X-Ray 05/08/22 08:56 KUB CLINICAL HISTORY: Small bowel obstruction. FINDINGS: 2 AP comment portable, supine abdominal radiographs are correlated with abdominal CT dated 05/07/2022. An enteric tube projects below the diaphragm over the stomach. Cholecystectomy clips are noted in the right upper quadrant. There is persistent small bowel obstruction. Distended gas-filled small bowel loops measure up to 5.5 cm in diameter. No evidence of intraperitoneal free air is seen on these supine images. There are no abnormal abdominal calcifications. An IVC filter is in place. The skeletal structures are osteopenic. Degenerative change and bony overgrowth is again seen involving the hips and pelvis. IMPRESSION: 1. Persistent high-grade small bowel obstruction. 2. An enteric tube is in place. Electronically signed by: Wilmar Stanford M.D. 05/08/2022 11:12 AM Resident Activity Tracking Resident Involvement: Resident Care Provided Care Provided: Adult [facility] Medicine
[2022-05-09] MEDS: ARIPiprazole 5 MG TAB PO SCH (08:01)
[2022-05-09] MEDS: DULoxetine HCL 60 MG CAP PO SCH ×3 (08:01→08:05)
[2022-05-09] MEDS: SERTRALINE HCL 100 MG TABLET PO SCH (08:01)
[2022-05-09] MEDS: GABAPENTIN 100 MG CAP PO SCH ×2 (08:02→14:05)
--- NOTE | 2022-05-09 10:02 | Billing Data ---
Date of Service May 09, 2022 Coding Level of Care Code 66133 SUB INP/OBS CARE
[2022-05-09] MEDS: POTASSIUM CHLORIDE / WTR 20 MEQ/100 ML PLCT IV SCH ×3 (10:47→14:57)
--- NOTE | 2022-05-09 10:56 | Surgery Progress Note ---
Date of Service May 09, 2022 Assessment & Plan (1) SBO (small bowel obstruction): Plan: pt is a 67 year-old female who was admitted to ICU for septic shock, COVID infection, pneumonia, SOPHIE with CT finding SBO, IMP: SBO plan, no emergent surgery indication now, conservative treatment, NPO, IV fluid, NG tube, repeat labs and KUB in morning, will F/U, Thanks, 05/08/2022 11:[address] Pal GARCIA, pt has no abdominal pain, passed BM x4, NG high output 1850, continue conservative treatment, may need surgery treatment if pt's symptoms are getting worse, pt understood, I angered all questions, will F/U 05/09/2022 11:[address] Pal GARCIA, pt has no abdominal pain, continue conservative treatment, may need surgery treatment if pt's symptoms are getting worse, pt understood, I angered all questions, head of store operations surgeon will cover this pt over weekend, Thanks, Admission and Anticipated Discharge Date Admission Date: May 07, 2022 Supervising Physician Co-Signing Physician Notes Dr. Hamlin was resident physician during care of patient. I separately evaluated patient for nelson portions of the history and the exam. I was present during the critical portion of medical decision making, and I discussed the case with the resident. I generally agree with the findings and plan. Off vasoactive medication. SOPHIE resolved. NG output is also decreasing. minimal oxygen requirement covid positive. Critical care needs have largely resolved. Deferring to general surgery regarding continued conservative management versus surgical intervention for small bowel obstruction. NG output is slightly decreasing. [facility] will sign off. D/W Dr. Gonsalez of [facility] Subjective awake and alert, resting comfortably in bed 05/09/2022 10:55 AM Pal Pinto, pt is table, more awake, pt denies abdominal pain, norovirus +, NG- 1900 Review of Systems Constitutional: as per Subjective / HPI Eyes: as per Subjective / HPI Respiratory: as per Subjective / HPI Cardiovascular: Additional Comments: HTN Gastrointestinal: constipation Genitourinary: as per Subjective / HPI Musculoskeletal: as per Subjective / HPI Neurologic: as per Subjective / HPI Psychiatric: as per Subjective / HPI Endocrine: as per Subjective / HPI Hematologic / Lymphatic: as per Subjective / HPI Physical Exam Eyes: PERRL, conjunctivae normal, anicteric sclerae Neck: trachea midline, no thyromegaly Respiratory: Auscultation: + diminished lung sounds Cardiovascular: RRR, no murmur, no edema Gastrointestinal (Abdomen): soft, NT, ND, BS +, Neurologic: patellar DTR's 2+ bilat, sensation intact Psychiatric: A+Ox3, euthymic affect Results & Data ([facility]) Vital Signs (Past 12 Hours) Vital Signs Temp Pulse Resp BP Pulse Ox O2 Del Method O2 Flow Rate 05/09/22 09:00 36.9 C 80 21 96 05/09/22 08:30 37.0 C 80 22 97 05/09/22 08:30 122/65 05/09/22 08:00 37.1 C 83 24 95 05/09/22 07:30 36.9 C 85 25 H 96 05/09/22 07:30 137/74 05/09/22 07:00 37.0 C 84 24 96 05/09/22 06:30 36.9 C 84 23 95 05/09/22 06:30 129/75 05/09/22 08:00 84 05/09/22 07:22 Nasal Cannula 2 05/09/22 06:00 37.1 C 85 24 96 05/09/22 05:30 37.1 C 85 24 97 05/09/22 05:30 130/69 05/09/22 05:00 37.0 C 85 21 96 05/09/22 04:30 37.0 C 84 24 95 05/09/22 04:30 129/65 05/09/22 04:00 37.1 C 85 21 95 05/09/22 03:30 37.1 C 87 23 93 05/09/22 03:30 129/69 05/09/22 03:00 37.1 C 84 18 93 05/09/22 02:30 37.2 C 85 19 93 05/09/22 02:00 37.3 C 89 20 93 05/09/22 01:30 37.3 C 88 25 H 94 05/09/22 01:30 124/85 05/09/22 01:00 37.3 C 88 23 95 05/09/22 00:30 37.3 C 89 24 96 05/09/22 00:30 135/76 05/09/22 00:00 37.3 C 88 26 H 95 05/08/22 23:30 37.3 C 89 24 95 05/08/22 23:30 121/81 05/08/22 23:00 37.3 C 89 24 94 05/09/22 00:00 88 Laboratory Results Abnormal lab results 05/08/22 05/08/22 05/08/22 Range/Units 11:45 14:07 14:07 RBC (4.20-5.40) M/uL RDW Std Deviation (36.4-46.3) fL RDW Coeff of Loni (11.5-14.5) % Neut # (Auto) (1.40-6.50) K/uL Mobile # (Auto) (0.11-0.59) K/uL Potassium (3.5-5.1) mmol/L BUN 26 H (6-23) mg/dl BUN/Creatinine Ratio 22.0 H (10-20) Glucose 120 H (70-99(Fasting)) mg/dl POC Glucose 116 H (70-99) mg/dl Calcium 7.6 L (8.5-10.1) mg/dl Phosphorus (2.5-4.9) mg/dl Magnesium (1.7-2.4) mg/dl Troponin I High Sens 43.0 H D (0-14) pg/ml Total Protein (6.0-8.3) gm/dl Albumin (3.4-5.0) gm/dl 05/09/22 05/09/22 Range/Units 03:58 03:58 RBC 4.17 L (4.20-5.40) M/uL RDW Std Deviation 48.1 H (36.4-46.3) fL RDW Coeff of Loni 14.6 H (11.5-14.5) % Neut # (Auto) 6.86 H (1.40-6.50) K/uL Mobile # (Auto) 1.11 H (0.11-0.59) K/uL Potassium 3.4 L (3.5-5.1) mmol/L BUN (6-23) mg/dl BUN/Creatinine Ratio 23.9 H (10-20) Glucose (70-99(Fasting)) mg/dl POC Glucose (70-99) mg/dl Calcium 7.4 L (8.5-10.1) mg/dl Phosphorus 1.2 L* D (2.5-4.9) mg/dl Magnesium 2.5 H (1.7-2.4) mg/dl Troponin I High Sens (0-14) pg/ml Total Protein 5.5 L (6.0-8.3) gm/dl Albumin 3.0 L (3.4-5.0) gm/dl
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
[2022-05-09] MEDS: ONDANSETRON INJ 2 MG/ML 2 ML VIAL IV PRN (16:01)
[2022-05-09 17:54] LABS: Magnesium 2.4 mg/dl (1.7-2.4); Phosphorus 1.7 mg/dl (2.5-4.9)
[2022-05-09 18:03] LABS: BUN Creatinine Ratio 27.8 (10-20); Calcium 7.4 mg/dl (8.5-10.1); Creatinine Clr Calc Pharmacy 95.8 ml/min; Est GFR (African American) 101.9 ml/min; Est GFR (Non-African American) 87.9 ml/min; Potassium 4.4 mmol/L (3.5-5.1)
[2022-05-09] MEDS ORDERED: SODIUM PHOSPHATE 3 MMOL/1 ML 5 ML VIAL IV ONE (18:28)
[2022-05-09] MEDS ORDERED: SODIUM PHOSPHATE 24 MMOL in SODIUM CHLORIDE 0.9% 500 ML IV ONE (18:45)
[2022-05-09] MEDS ORDERED: Nursing to Pharmacy Communication SCH ×2 (22:30→23:45)
[2022-05-09] MEDS: AMANTADINE HCL 100 MG CAPSULE PO SCH ×2 (23:29→23:45)
[2022-05-09] MEDS: ATORVASTATIN 20 MG TAB PO SCH (23:30)
[2022-05-09] MEDS: GABAPENTIN 250 MG/5 ML 470 ML BTL PO SCH (23:31)
[2022-05-09] MEDS: AMANTADINE HCL 50 MG/5 ML PO SCH (23:58)
[2022-05-10] MEDS ORDERED: MoRPHine SULFATE 2 MG/ML CARP IV STA ×2 (01:32→20:03)
[2022-05-10] MEDS: HEPARIN SOD 5,000 UNIT/0.5 ML VIAL SQ SCH ×3 (05:47→22:03)
[2022-05-10] MEDS: LEVOTHYROXINE SODIUM 25 MCG TABLET PO SCH (05:47)
--- NOTE | 2022-05-10 06:22 | Surgery Progress Note ---
Date of Service May 10, 2022 Assessment & Plan (1) SBO (small bowel obstruction): Plan: Patient has been admitted on the hospital service. Recommend continuing care as follows: Continue conservative management as patient does not appear to have any clinical deterioration Continue NG tube until certain bowel function has returned to an adequate level Continue IV fluid for hydration while n.p.o. Check a.m. labs when available Admission and Anticipated Discharge Date Admission Date: May 07, 2022 Supervising Physician Co-Signing Physician Notes I personally saw and evaluate the patient with Cresencio Stevenson PA-C and agree with the assessment and plan. Continue NG tube Slowly improving, no plans for surgery at this point Subjective Patient is resting comfortably in bed. She notes some slight abdominal pain but notes that this has improved since admission. She denies any nausea or vomiting. The patient feels as though she is passing flatus as well as having bowel movements (rectal tube is in place) she denies any other complaints at this time. Physical Exam Gastrointestinal (Abdomen): Abdomen is soft with minimal distention. Bowel sounds are hypoactive. There is no rebound tenderness or guarding. There is minimal pain with palpation. NG tube is in place and is drained 275 cc over the last shift. Patient does have a rectal tube in place with drainage noted. Results & Data ([facility]) Vital Signs (Past 12 Hours) Vital Signs Temp Pulse Pulse Pulse Resp BP BP 05/09/22 21:00 05/10/22 03:23 36.7 C 79 16 107/65 05/09/22 22:40 36.9 C 77 18 123/75 05/09/22 19:45 36.4 C L 77 18 122/73 05/09/22 18:30 36.8 C 77 20 05/09/22 18:30 124/72 Pulse Ox O2 Del Method O2 Flow Rate 05/09/22 21:00 Nasal Cannula 2 05/10/22 03:23 93 Nasal Cannula 2 05/09/22 22:40 92 Room Air 05/09/22 19:45 94 Nasal Cannula 1 05/09/22 18:30 96 05/09/22 18:30 PG Care Time/CCT Total # of Minutes Spent Total Time Spent with Patient: Total time spent is greater than 50% in coordination of care (as documented) at patient's floor/unit and/or counseling patient: Coding Level of Care Code 25869 SUB INP/OBS CARE Diagnoses SBO (small bowel obstruction) K56.609
[2022-05-10] MEDS ORDERED: STAT IV STA (07:44)
[2022-05-10] MEDS ORDERED: CALCIUM GLUCONATE 10% 1,000 MG in DEXTROSE 5% 50 ML IV ONE (08:00)
[2022-05-10 08:02] LABS: BUN Creatinine Ratio 23.1 (10-20); Calcium 7.3 mg/dl (8.5-10.1); Creatinine Clr Calc Pharmacy 107.7 ml/min; Est GFR (Non-African American) 93.2 ml/min; Magnesium 2.2 mg/dl (1.7-2.4); Phosphorus 2.4 mg/dl (2.5-4.9)
[2022-05-10 08:12] LABS: Basophils # (auto) 0.03 K/uL (0-0.2); Basophils % (auto) 0.4 %; Eosinophils # (auto) 0.21 K/uL (0-0.50); Eosinophils % (auto) 2.7 %; Hematocrit (blood only) 34.7 % (37.0-47.0); Hemoglobin 11.5 g/dl (12.0-16.0); Immature Granulocytes % (auto) 1.3 %; Lymphocytes # (auto) 1.28 K/uL (1.2-3.4); Lymphocytes % (auto) 16.2 %; Mean Corpuscular Hemoglobin 30.6 pg (25.0-34.0); Mean Corpuscular Hgb Conc 33.1 g/dL (32.0-36.0); Mean Corpuscular Volume 92.3 fL (80.0-100.0); Mean Platelet Volume 10.8 fL (9.4-12.4); Monocytes # (auto) 0.73 K/uL (0.11-0.59); Monocytes % (auto) 9.2 %; Neutrophils # (auto) 5.57 K/uL (1.40-6.50); Neutrophils % (auto) 70.2 %; Platelet Count 137 K/uL (130-400); RBC Morphology Unremarkable; RDW Coefficient of Variation 14.4 % (11.5-14.5); RDW Standard Deviation 48.8 fL (36.4-46.3); Red Blood Count 3.76 M/uL (4.20-5.40); White Blood Count 7.92 K/ul (4.8-10.8)
[2022-05-10] MEDS: NORMOSOL-R 1,000 ML IV SCH ×2 (08:40→17:13)
[2022-05-10] MEDS: AMANTADINE HCL 50 MG/5 ML PO SCH ×2 (08:49→20:18)
[2022-05-10] MEDS: ARIPiprazole 5 MG TAB PO SCH (08:49)
[2022-05-10] MEDS: SERTRALINE HCL 100 MG TABLET PO SCH (08:50)
[2022-05-10] MEDS: DULoxetine HCL 60 MG CAP PO SCH (08:50)
[2022-05-10] MEDS: GABAPENTIN 250 MG/5 ML 470 ML BTL PO SCH ×3 (08:58→20:20)
[2022-05-10 08:59] LABS: A calco-baum cmplx NotReported Not Detected (NotDetected); Bact fragilis Not Reported Not Detected (NotDetected); C auris Not Reported Not Detected (NotDetected); Calbicans Not Reported Not Detected (NotDetected); Candida glabrata Not Reported Not Detected (NotDetected); Candida krusei Not Reported Not Detected (NotDetected); Cneoformans/gatti Not Reported Not Detected (NotDetected); Cparapsilosis Not Reported Not Detected (NotDetected); Ctropicalis Not Reported Not Detected (NotDetected); E cloacae compx Not Reported Not Detected (NotDetected); Efaecalis Not Reported Not Detected (NotDetected); Efaecium Not Reported Not Detected (NotDetected); Enterobacterales Not Reported Not Detected (NotDetected); Escherichia coli Not Reported Not Detected (NotDetected); H influenzae Not Reported Not Detected (NotDetected); K aerogenes Not Reported Not Detected (NotDetected); Koxytoca Not Reported Not Detected (NotDetected); Kpneumoniae grp Not Reported Not Detected (NotDetected); Lmonocyt Not Reported Not Detected (NotDetected); N meningitidis Not Reported Not Detected (NotDetected); P aeruginosa Not Reported Not Detected (NotDetected); Proteus spp Not Reported Not Detected (NotDetected); Salmonella spp Not Reported Not Detected (NotDetected); Smarcescens Not Reported Not Detected (NotDetected); Staph lugdunensis Not Reported Not Detected (NotDetected); Staph spp. Not Reported Not Detected (NotDetected); Staphaureus Not Reported Not Detected (NotDetected); Staphepi Not Reported Not Detected (NotDetected); Stenmaltophilia Not Reported Not Detected (NotDetected); Strep agal(GrpB) Not Reported Not Detected (NotDetected); Strep pneum Not Reported Not Detected (NotDetected); Strep pyog (GrpA) Not Reported Not Detected (NotDetected); Strep spp Not Reported Not Detected (NotDetected)
[2022-05-10] MEDS: AMPICILLIN/SULBACTAM SOD 3,000 MG in 0.9 % SODIUM CHLORIDE 100 ML IV SCH ×3 (11:04→22:04)
[2022-05-10] MEDS: ACETAMINOPHEN 325 MG TAB PO PRN ×2 (13:11→17:23)
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
[2022-05-10] MEDS: ATORVASTATIN 20 MG TAB PO SCH (20:18)
[2022-05-11] MEDS: NORMOSOL-R 1,000 ML IV SCH ×3 (02:49→20:17)
[2022-05-11] MEDS ORDERED: MoRPHine SULFATE 2 MG/ML CARP IV STA (03:05)
[2022-05-11] MEDS: HEPARIN SOD 5,000 UNIT/0.5 ML VIAL SQ SCH ×3 (05:30→20:08)
[2022-05-11] MEDS: AMPICILLIN/SULBACTAM SOD 3,000 MG in 0.9 % SODIUM CHLORIDE 100 ML IV SCH ×4 (05:30→23:59)
[2022-05-11] MEDS: LEVOTHYROXINE SODIUM 25 MCG TABLET PO SCH (05:31)
--- NOTE | 2022-05-11 06:13 | Surgery Progress Note ---
Date of Service May 11, 2022 Assessment & Plan (1) SBO (small bowel obstruction): Plan: Patient has been admitted on the hospital service. Recommend continuing care as follows: Continue NG tube for the present time. The primary service has ordered a KUB for this morning. Based on KUB results consideration can be given to performing a clamping trial of NG tube prior to removing it Continue IV fluid for hydration while n.p.o. Admission and Anticipated Discharge Date Admission Date: May 07, 2022 Supervising Physician Co-Signing Physician Notes I personally saw and evaluate the patient with Cresencio Stevenson PA-C and agree with the assessment and plan. 67-year-old female with small bowel obstruction Clamp trial NG tube this morning, she continues to have stool output via rectal tube Subjective Patient is resting comfortably in bed. She does note some continued abdominal pain that she notes is not as severe as previous. She says that she is moving her bowels (to she does have a rectal tube in place) No nausea or vomiting reported. Physical Exam Gastrointestinal (Abdomen): Abdomen is nondistended and nonrigid. Bowel sounds are present. The patient did have some pain noted with palpation just to the right of the umbilicus. There is no rebound tenderness or guarding. NG tube is in place and has drained approximately 750 cc over the past 24 hours. Rectal tube is in place draining liquid contents. Results & Data ([facility]) Vital Signs (Past 12 Hours) Vital Signs Temp Pulse Resp BP Pulse Ox O2 Del Method 05/10/22 21:00 Room Air 05/11/22 02:50 36.8 C 76 18 107/68 92 Room Air 05/10/22 22:27 36.7 C 71 18 113/67 93 Room Air 05/10/22 19:53 36.4 C L 68 18 114/66 93 Room Air PG Care Time/CCT Total # of Minutes Spent Total Time Spent with Patient: Total time spent is greater than 50% in coordination of care (as documented) at patient's floor/unit and/or counseling patient: Coding Level of Care Code 49137 SUB INP/OBS CARE 1/25MIN Diagnoses SBO (small bowel obstruction) K56.609
[2022-05-11 07:05] LABS: Basophils # (auto) 0.07 K/uL (0-0.2); Basophils % (auto) 0.8 %; Eosinophils % (auto) 3.4 %; Hematocrit (blood only) 34.3 % (37.0-47.0); Hemoglobin 11.4 g/dl (12.0-16.0); Immature Granulocytes # (auto) 0.38 K/uL (0.01-0.20); Immature Granulocytes % (auto) 4.4 %; Lymphocytes # (auto) 1.39 K/uL (1.2-3.4); Mean Corpuscular Hemoglobin 30.6 pg (25.0-34.0); Mean Corpuscular Hgb Conc 33.2 g/dL (32.0-36.0); Mean Platelet Volume 10.4 fL (9.4-12.4); Monocytes # (auto) 0.86 K/uL (0.11-0.59); Monocytes % (auto) 9.9 %; Neutrophils # (auto) 5.71 K/uL (1.40-6.50); Neutrophils % (auto) 65.5 %; Platelet Count 150 K/uL (130-400); RDW Coefficient of Variation 14.1 % (11.5-14.5); RDW Standard Deviation 47.6 fL (36.4-46.3); Red Blood Count 3.73 M/uL (4.20-5.40); White Blood Count 8.71 K/ul (4.8-10.8)
[2022-05-11 07:34] LABS: BUN Creatinine Ratio 18.6 (10-20); Calcium 8.1 mg/dl (8.5-10.1); Creatinine Clr Calc Pharmacy 98.7 ml/min; Est GFR (African American) 105.4 ml/min; Est GFR (Non-African American) 90.9 ml/min; Magnesium 2.2 mg/dl (1.7-2.4); Phosphorus 2.4 mg/dl (2.5-4.9)
[2022-05-11] MEDS: ACETAMINOPHEN 325 MG TAB PO PRN ×3 (08:21→20:09)
[2022-05-11] MEDS: GABAPENTIN 250 MG/5 ML 470 ML BTL PO SCH ×3 (08:22→20:20)
[2022-05-11] MEDS: SERTRALINE HCL 100 MG TABLET PO SCH (08:22)
[2022-05-11] MEDS: AMANTADINE HCL 50 MG/5 ML PO SCH ×2 (08:22→20:09)
[2022-05-11] MEDS: ARIPiprazole 5 MG TAB PO SCH (08:22)
[2022-05-11] MEDS: DULoxetine HCL 60 MG CAP PO SCH (08:22)
--- NOTE | 2022-05-11 10:17 | XRay Report ---
KUB CLINICAL HISTORY: Small bowel obstruction. FINDINGS: 2 AP supine abdominal radiographs are compared to study dated 05/08/2022 and correlated with abdominal CT dated 05/07/2022. An enteric tube projects below the diaphragm over the stomach. Cholecyst ectomy clips and an IVC filter are noted. A Gerardo catheter projects over the pelvis. There is no radi ographic evidence of bowel obstruction on today's examination. No evidence of intraperitoneal free ai r is seen on these supine images. There are no abnormal abdominal calcifications. The skeletal struct ures are osteopenic and appear intact. Advanced degenerative change and bony overgrowth is again seen involving the hips. IMPRESSION: 1. An enteric tube is unchanged in position. 2. There is no radiographic evidence of persistent bowel obstruction. Clinical correlation will be re quired. Electronically signed by: Wilmar Stanford M.D. 05/11/2022 10:15 AM
[2022-05-11] MEDS ORDERED: SODIUM PHOSPHATE 3 MMOL/1 ML 5 ML VIAL IV ONE (13:44)
[2022-05-11] MEDS ORDERED: STAT IV STA (13:44)
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
[2022-05-11] MEDS ORDERED: CALCIUM GLUCONATE 10% 1,000 MG in DEXTROSE 5% 50 ML IV ONE (14:15)
[2022-05-11] MEDS ORDERED: SODIUM PHOSPHATE IV ONE (14:30)
[2022-05-11] MEDS ORDERED: DEXTROSE 5% IV ONE (14:30)
[2022-05-11] MEDS: ATORVASTATIN 20 MG TAB PO SCH (20:09)
[2022-05-12] MEDS: AMPICILLIN/SULBACTAM SOD 3,000 MG in 0.9 % SODIUM CHLORIDE 100 ML IV SCH ×4 (05:48→21:54)
[2022-05-12] MEDS: LEVOTHYROXINE SODIUM 25 MCG TABLET PO SCH (05:49)
[2022-05-12] MEDS: HEPARIN SOD 5,000 UNIT/0.5 ML VIAL SQ SCH ×3 (05:49→23:24)
[2022-05-12] MEDS: NORMOSOL-R 1,000 ML IV SCH ×2 (05:49→15:55)
[2022-05-12 07:37] LABS: Hematocrit (blood only) 34.5 % (37.0-47.0); Hemoglobin 11.8 g/dl (12.0-16.0); Mean Corpuscular Hemoglobin 30.3 pg (25.0-34.0); Mean Corpuscular Hgb Conc 34.2 g/dL (32.0-36.0); Mean Corpuscular Volume 88.7 fL (80.0-100.0); Mean Platelet Volume 10.3 fL (9.4-12.4); Platelet Count 187 K/uL (130-400); RDW Coefficient of Variation 13.7 % (11.5-14.5); RDW Standard Deviation 44.4 fL (36.4-46.3); Red Blood Count 3.89 M/uL (4.20-5.40); White Blood Count 9.39 K/ul (4.8-10.8)
[2022-05-12 07:55] LABS: Basophils # (auto) 0.15 K/uL (0-0.2); Basophils % (auto) 1.6 %; Eosinophils # (auto) 0.44 K/uL (0-0.50); Eosinophils % (auto) 4.7 %; Immature Granulocytes % (auto) 8.5 %; Lymphocytes # (auto) 1.22 K/uL (1.2-3.4); Monocytes # (auto) 0.91 K/uL (0.11-0.59); Monocytes % (auto) 9.7 %; Neutrophils # (auto) 5.87 K/uL (1.40-6.50); Neutrophils % (auto) 62.5 %; Polychromasia 1+
[2022-05-12] MEDS: AMANTADINE HCL 50 MG/5 ML PO SCH ×2 (08:44→21:52)
[2022-05-12] MEDS: ARIPiprazole 5 MG TAB PO SCH (08:44)
[2022-05-12] MEDS: DULoxetine HCL 60 MG CAP PO SCH (08:44)
[2022-05-12] MEDS: SERTRALINE HCL 100 MG TABLET PO SCH (08:44)
[2022-05-12] MEDS: GABAPENTIN 250 MG/5 ML 470 ML BTL PO SCH ×3 (08:49→21:52)
--- NOTE | 2022-05-12 09:46 | Surgery Progress Note ---
Date of Service May 12, 2022 Assessment & Plan (1) SBO (small bowel obstruction): Plan: pt is a 67 year-old female who was admitted to ICU for septic shock, COVID infection, pneumonia, SOPHIE with CT finding SBO, IMP: SBO plan, no emergent surgery indication now, conservative treatment, NPO, IV fluid, NG tube, repeat labs and KUB in morning, will F/U, Thanks, 05/08/2022 11:[address] Pal Faith SBO, pt has no abdominal pain, passed BM x4, NG high output 1850, continue conservative treatment, may need surgery treatment if pt's symptoms are getting worse, pt understood, I angered all questions, will F/U 05/09/2022 11:[address] 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 gutierrez SBO resolved, advanced diet, sign off today, please call with questions, Thanks, Admission and Anticipated Discharge Date Admission Date: May 07, 2022 Supervising Physician Co-Signing Physician Notes I personally saw and evaluate the patient with Cresencio Stevenson PA-C and agree with the assessment and plan. 67-year-old female with small bowel obstruction Clamp trial NG tube this morning, she continues to have stool output via rectal tube Subjective 05/08/2022 The patient was seen and examined in ICU She has been feeling a little better without any significant respiratory symptoms Still has abdominal distention and pain Has been passing loose stools No fever and no chills 05/09/2022 The patient was seen and examined in ICU She has been feeling much better and denies any abdominal distention or pain Still having watery diarrhea Denies any shortness of breath at rest 05/10/2022 The patient was seen and examined in medical telemetry unit and in the COVID room She has been feeling a little better today with decreasing abdominal swelling and pain Has been moving gas and bowel and the NG tube is draining reasonably Denies any respiratory symptoms 05/11/2022 The patient was seen and examined in medical telemetry unit and in the COVID room She has been feeling much better Abdominal distention is gone, denies any abdominal discomfort, any nausea and or vomiting No respiratory symptoms and saturating normally on room air 05/12/2022 9:44AM Dr. Gutierrez F/U SBO, pt is doing better, passed gas and BM, no abdominal pain , no fever, tolerated diet, Review of Systems Constitutional: as per Subjective / HPI Eyes: as per Subjective / HPI Respiratory: as per Subjective / HPI Cardiovascular: Additional Comments: HTN Gastrointestinal: constipation Genitourinary: as per Subjective / HPI Musculoskeletal: as per Subjective / HPI Neurologic: as per Subjective / HPI Psychiatric: as per Subjective / HPI Endocrine: as per Subjective / HPI Hematologic / Lymphatic: as per Subjective / HPI Physical Exam Eyes: PERRL, conjunctivae normal, anicteric sclerae Neck: trachea midline, no thyromegaly Respiratory: Auscultation: + diminished lung sounds Cardiovascular: RRR, no murmur, no edema Gastrointestinal (Abdomen): soft, NT, ND, BS +. Neurologic: patellar DTR's 2+ bilat, sensation intact Psychiatric: A+Ox3, euthymic affect Results & Data ([facility]) Vital Signs (Past 12 Hours) Vital Signs Temp Pulse Pulse Resp BP Pulse Ox O2 Del Method 05/12/22 03:19 36.8 C 72 18 124/83 95 Nasal Cannula 05/11/22 21:59 76 05/11/22 22:40 37 C 74 19 115/65 95 Nasal Cannula O2 Flow Rate 05/12/22 03:19 2 05/11/22 21:59 05/11/22 22:40 2 Laboratory Results Abnormal lab results 05/12/22 05/12/22 Range/Units 06:59 06:59 RBC 3.89 L (4.20-5.40) M/uL Hgb 11.8 L (12.0-16.0) g/dl Hct 34.5 L (37.0-47.0) % [place]field # (Auto) 0.91 H (0.11-0.59) K/uL Immature Gran # (Auto) 0.80 H (0.01-0.20) K/uL Ionized Calcium 1.10 L (1.12-1.32) mmol/L Diagnostic Findings KUB 05/11/2022 CLINICAL HISTORY: Small bowel obstruction. FINDINGS: 2 AP supine abdominal radiographs are compared to study dated 05/08/2022 and correlated with abdominal CT dated 05/07/2022. An enteric tube projects below the diaphragm over the stomach. Cholecystectomy clips and an IVC filter are noted. A Gerardo catheter projects over the pelvis. There is no radiographic e vidence of bowel obstruction on today's examination. No evidence of intraperitoneal free air is seen on these supine images. There are no abnormal abdominal calcifications. The skeletal structures are osteopenic and appear intact. Advanced degenerative change and bony overgrowth is again seen involving the hips. IMPRESSION: 1. An enteric tube is unchanged in position. 2. There is no radiographic evidence of persistent bowel obstruction. Clinical correlation will be required.
[2022-05-12 10:02] LABS: BUN Creatinine Ratio 10.4 (10-20); Calcium 8.7 mg/dl (8.5-10.1); Creatinine Clr Calc Pharmacy 105.3 ml/min; Est GFR (African American) 106.9 ml/min; Est GFR (Non-African American) 92.2 ml/min; Magnesium 1.7 mg/dl (1.7-2.4); Phosphorus 3.1 mg/dl (2.5-4.9); Potassium 3.5 mmol/L (3.5-5.1)
[2022-05-12] MEDS: ACETAMINOPHEN 325 MG TAB PO PRN ×2 (11:34→21:50)
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
[2022-05-12] MEDS: ATORVASTATIN 20 MG TAB PO SCH (21:52)
[2022-05-13 00:26] LABS: Hematocrit (blood only) 36.9 % (37.0-47.0); Hemoglobin 12.7 g/dl (12.0-16.0)
[2022-05-13] MEDS: NORMOSOL-R 1,000 ML IV SCH ×3 (02:14→22:18)
[2022-05-13] MEDS: AMPICILLIN/SULBACTAM SOD 3,000 MG in 0.9 % SODIUM CHLORIDE 100 ML IV SCH ×4 (05:19→23:55)
[2022-05-13] MEDS: LEVOTHYROXINE SODIUM 25 MCG TABLET PO SCH (06:08)
[2022-05-13] MEDS: HEPARIN SOD 5,000 UNIT/0.5 ML VIAL SQ SCH ×3 (06:31→20:33)
[2022-05-13] MEDS: ARIPiprazole 5 MG TAB PO SCH (09:06)
[2022-05-13] MEDS: SERTRALINE HCL 100 MG TABLET PO SCH (09:06)
[2022-05-13] MEDS: DULoxetine HCL 60 MG CAP PO SCH (09:06)
[2022-05-13] MEDS: GABAPENTIN 250 MG/5 ML 470 ML BTL PO SCH ×3 (09:06→20:33)
[2022-05-13] MEDS: AMANTADINE HCL 50 MG/5 ML PO SCH ×2 (09:06→20:32)
[2022-05-13] MEDS: ACETAMINOPHEN 325 MG TAB PO PRN ×2 (10:34→18:25)
[2022-05-13] MEDS: LOPERAMIDE HCL 2 MG CAP PO PRN (12:08)
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
[2022-05-13] MEDS: ONDANSETRON INJ 2 MG/ML 2 ML VIAL IV PRN (16:04)
[2022-05-13] MEDS: ATORVASTATIN 20 MG TAB PO SCH (20:33)
[2022-05-14] MEDS: AMPICILLIN/SULBACTAM SOD 3,000 MG in 0.9 % SODIUM CHLORIDE 100 ML IV SCH ×2 (05:46→11:57)
[2022-05-14] MEDS: HEPARIN SOD 5,000 UNIT/0.5 ML VIAL SQ SCH ×3 (05:48→21:20)
[2022-05-14] MEDS: LEVOTHYROXINE SODIUM 25 MCG TABLET PO SCH (05:49)
[2022-05-14 06:19] LABS: Hematocrit (blood only) 34.5 % (37.0-47.0); Hemoglobin 11.7 g/dl (12.0-16.0); Mean Corpuscular Hemoglobin 30.8 pg (25.0-34.0); Mean Corpuscular Hgb Conc 33.9 g/dL (32.0-36.0); Mean Corpuscular Volume 90.8 fL (80.0-100.0); Mean Platelet Volume 10.5 fL (9.4-12.4); Platelet Count 225 K/uL (130-400); RDW Coefficient of Variation 14.2 % (11.5-14.5); RDW Standard Deviation 47.1 fL (36.4-46.3); White Blood Count 8.21 K/ul (4.8-10.8)
[2022-05-14 06:33] LABS: BUN Creatinine Ratio 7.6 (10-20); Calcium 8.2 mg/dl (8.5-10.1); Creatinine Clr Calc Pharmacy 106.3 ml/min; Est GFR (African American) 107.4 ml/min; Est GFR (Non-African American) 92.7 ml/min; Phosphorus 3.1 mg/dl (2.5-4.9); Potassium 3.4 mmol/L (3.5-5.1)
[2022-05-14] MEDS: ACETAMINOPHEN 325 MG TAB PO PRN ×2 (06:45→21:19)
[2022-05-14] MEDS: LOPERAMIDE HCL 2 MG CAP PO PRN ×2 (06:45→21:19)
[2022-05-14] MEDS: NORMOSOL-R 1,000 ML IV SCH ×2 (06:46→16:42)
[2022-05-14 07:04] LABS: Basophils # (auto) 0.07 K/uL (0-0.2); Basophils % (auto) 0.9 %; Eosinophils # (auto) 0.47 K/uL (0-0.50); Eosinophils % (auto) 5.7 %; Immature Granulocytes # (auto) 0.73 K/uL (0.01-0.20); Immature Granulocytes % (auto) 8.9 %; Lymphocytes # (auto) 1.27 K/uL (1.2-3.4); Lymphocytes % (auto) 15.5 %; Monocytes # (auto) 0.88 K/uL (0.11-0.59); Monocytes % (auto) 10.7 %; Neutrophils # (auto) 4.79 K/uL (1.40-6.50); Neutrophils % (auto) 58.3 %
[2022-05-14] MEDS: SERTRALINE HCL 100 MG TABLET PO SCH (07:55)
[2022-05-14] MEDS: DULoxetine HCL 60 MG CAP PO SCH (07:55)
[2022-05-14] MEDS: ARIPiprazole 5 MG TAB PO SCH (07:55)
[2022-05-14] MEDS: AMANTADINE HCL 50 MG/5 ML PO SCH ×2 (07:55→21:21)
[2022-05-14] MEDS ORDERED: POTASSIUM CHLORIDE CRTAB 20 MEQ TABCR PO STA (08:28)
[2022-05-14] MEDS: GABAPENTIN 250 MG/5 ML 470 ML BTL PO SCH ×3 (09:04→21:35)
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
[2022-05-14] MEDS: ATORVASTATIN 20 MG TAB PO SCH (21:22)
[2022-05-15] MEDS: HEPARIN SOD 5,000 UNIT/0.5 ML VIAL SQ SCH ×3 (05:48→20:46)
[2022-05-15] MEDS: LEVOTHYROXINE SODIUM 25 MCG TABLET PO SCH (05:48)
[2022-05-15] MEDS: GABAPENTIN 250 MG/5 ML 470 ML BTL PO SCH ×3 (08:07→20:55)
[2022-05-15] MEDS: ARIPiprazole 5 MG TAB PO SCH (08:07)
[2022-05-15] MEDS: DULoxetine HCL 60 MG CAP PO SCH (08:08)
[2022-05-15] MEDS: AMANTADINE HCL 50 MG/5 ML PO SCH ×2 (08:08→20:47)
[2022-05-15] MEDS: NORMOSOL-R 1,000 ML IV SCH ×3 (08:09→20:45)
[2022-05-15] MEDS: SERTRALINE HCL 100 MG TABLET PO SCH (08:09)
[2022-05-15 10:20] LABS: Hematocrit (blood only) 35.4 % (37.0-47.0); Hemoglobin 11.9 g/dl (12.0-16.0); Mean Corpuscular Hemoglobin 30.3 pg (25.0-34.0); Mean Corpuscular Hgb Conc 33.6 g/dL (32.0-36.0); Mean Corpuscular Volume 90.1 fL (80.0-100.0); Mean Platelet Volume 10.3 fL (9.4-12.4); Platelet Count 228 K/uL (130-400); RDW Coefficient of Variation 14.5 % (11.5-14.5); RDW Standard Deviation 47.1 fL (36.4-46.3); Red Blood Count 3.93 M/uL (4.20-5.40); White Blood Count 8.69 K/ul (4.8-10.8)
[2022-05-15 10:34] LABS: BUN Creatinine Ratio 7.6 (10-20); Calcium 8.4 mg/dl (8.5-10.1); Est GFR (African American) 107.4 ml/min; Est GFR (Non-African American) 92.7 ml/min
[2022-05-15 10:47] LABS: ALC (manual) 1.13 K/uL (1.2-3.4); ANC (manual) 6.69 K/uL (1.4-6.5); Eosinophils # (manual) 0.35 K/uL (0-0.50); Eosinophils % (manual) 4 %; Lymphocytes # (manual) 1.13 K/uL (1.2-3.4); Lymphocytes % (manual) 13 %; Metamyelocytes # (manual) 0.09 K/uL (0-0); Metamyelocytes % (manual) 1 %; Monocytes # (manual) 0.43 K/uL (0.11-0.59); Monocytes % (manual) 5 %; Neutrophils # (manual) 6.69 K/uL (1.40-6.50); Neutrophils % (manual) 77 %
[2022-05-15] MEDS: ACETAMINOPHEN 325 MG TAB PO PRN ×2 (11:11→20:46)
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
[2022-05-15] MEDS: LOPERAMIDE HCL 2 MG CAP PO PRN (20:47)
[2022-05-15] MEDS: ATORVASTATIN 20 MG TAB PO SCH (20:47)
[2022-05-16] MEDS: HEPARIN SOD 5,000 UNIT/0.5 ML VIAL SQ SCH ×2 (03:29→08:42)
[2022-05-16] MEDS: LEVOTHYROXINE SODIUM 25 MCG TABLET PO SCH (06:08)
[2022-05-16] MEDS: NORMOSOL-R 1,000 ML IV SCH (06:08)
[2022-05-16 06:57] LABS: Calcium 8.2 mg/dl (8.5-10.1); Magnesium 2.1 mg/dl (1.7-2.4); Potassium 3.9 mmol/L (3.5-5.1)
[2022-05-16 07:03] LABS: BUN Creatinine Ratio 9.3 (10-20); Creatinine Clr Calc Pharmacy 92.2 ml/min; Est GFR (African American) 96.9 ml/min; Est GFR (Non-African American) 83.6 ml/min
[2022-05-16] MEDS: AMANTADINE HCL 50 MG/5 ML PO SCH (08:42)
[2022-05-16] MEDS: ARIPiprazole 5 MG TAB PO SCH (08:42)
[2022-05-16] MEDS: SERTRALINE HCL 100 MG TABLET PO SCH (08:42)
[2022-05-16] MEDS: DULoxetine HCL 60 MG CAP PO SCH (08:42)
[2022-05-16] MEDS: LOPERAMIDE HCL 2 MG CAP PO PRN ×2 (08:43→13:41)
[2022-05-16] MEDS: ACETAMINOPHEN 325 MG TAB PO PRN (08:43)
[2022-05-16] MEDS: GABAPENTIN 250 MG/5 ML 470 ML BTL PO SCH ×2 (09:25→13:41)
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
--- NOTE | 2022-05-16 12:13 | Discharge Summary ---
Discharge Summary Date of Service May 16, 2022 Notes For Next Care Provider Monitor for diarrhea Medication Changes From Visit Imodium PRN Admission HPI Per Admitting Provider This is a 67-year-old female with PMHx of traumatic brain injury in 2016, HTN, HLD, DM type II, obesity, history of DVT presents from [facility] for complaints of altered mental status. Pt TBI makes it difficult to obtain reliable HPI, ROS. Patient was sent to the ER due to worsening altered mental status, lethargy, weakness and temperature of 99 F. Here patient was found to have rectal temp of 104 F, tachycardic, hypotensive with BP of 70/50. She is noted to be COVID- 19 positive on initial respiratory panel. Per review of chart she was noted to have nausea vomiting and diarrhea prior to coming to the ER. Attempted to call [facility] twice without connection to a nurse for further information. Discussion was held with the patient's son, Charli Davis, via phone. He cannot provide information regarding his mother's symptoms in the past few days as SNF has not returned his phone calls this morning either. He notes that since her traumatic brain injury, that she has been unable to speak sensibly, is not oriented to date or time, is only oriented to self. She has been in several facilities since 2016, most recently was transferred to [facility] when he moved to [place] Recently he moved back to [place] due to work. He like to have his mother transferred to a facility closer to where he lives at this point in time if possible. Admission Exam Per Admitting Provider General: awake, alert, unable to answer more than yes or no questions, follows commands somewhat, obese with BMI of 32 Head: Normocephalic, Hx of craniotomy ENT: PERRL, EOMI, no pharyngeal exudate, mucous membranes dry Chest: Diminished breath sounds throughout, + expiratory wheeze anterior haddad, on 2L via NC Cardiac: tachycardic, no murmur, no JVD, normal peripheral pulses, good capillary refill Abdominal: NABS x 4 quadrants, soft, nondistended, nontender to palpation, no rebound or guarding Extremities: + atrophy, patient is unable to move bilateral legs, has not walked since TBI in 2016, + trace peripheral edema, no erythema, calfs nontender to palpation Psych: Normal mood and affect Neuro: Alert, awakens to verbal stimuli, oriented to self, not to place or time. Able to move upper extremities, she cannot move her legs bilaterally. speech is clear with saying yes or no, open-ended questioning results and garbled speech, nonsensical words, no peripheral sensory deficits Principal Dx & Hospital Course #1 = Principal Diagnosis (1) COVID-19 virus infection: per Dr. Gonsalez's notes with addendum: (1) Septic shock: Plan: She was sent in from heart side with worsening change in mental status, profound weakness and temperature of 99 F Noted to have hypotension with BP of 70/50 and tachycardia with positive COVID test in the emergency room Required IV pressor resents and IV fluid administration She was admitted to ICU and wine blender was consulted She received initial broad-spectrum antibiotics with intravenous cefepime and va ncomycin for possible infection but later on those were discontinued Blood and urine cultures have been negative She has been feeling little better since this morning (+) diarrhea negative for C diff Frequency has decreased with Imodium Diarrhea could be secondary to antibiotic Gram-positive bacilli bacteremia in 1 out of 2 Secondary to intestinal obstruction Patient is not having any fever and her white count elevation Further identification of the organism-actinomyces meyeri-no sensitivity is done No more fever and no chills Clinically much better, antibiotics discontinued 05/16 afebrile no leukocytosis hemodynamically stable (2) SBO (small bowel obstruction): Plan: CT of the abdomen and pelvis did show high-grade SBO with a transition point to right lower quadrant which is secondary to ideations Appreciate surgery input and recommendation IV fluid, NG suction, pain medications and symptomatic management f Repeat KUB did not show any SBO No more obstruction and she is having diarrhea likely secondary to COVID-19 virus infection / patient reports BM has returned to her baseline no abdominal pain, nausea/vomiting PRN Imodium Multiple electrolytes abnormality Has hypophosphatemia and hypokalemia / resolved (3) COVID-19 virus infection: Plan: Has COVID-19 virus infection No significant imaging findings of pneumonia suggestive of COVID-19 virus Did not require any remdesivir and/or dexamethasone Saturating normally on room air Minimal cough but no shortness of breath Diarrhea is secondary to COVID-19 virus infection 05/16 respiratory status stable off isolation starting today (4) Nausea vomiting and diarrhea: Plan: Secondary to SBO as above Resolved (5) SOPHIE (acute kidney injury): Plan: -Creatinine has been trending down and it has been 1.72 as of 05/08/202205/16 resolved (6) Diabetes mellitus: Plan: A1c 5.6 as of 12/26 (7) Generalized anxiety disorder: (8) Acute metabolic encephalopathy: Plan: Managed as above (9) Traumatic brain injury: Plan: - Continue with amantadine, aripiprazole, sertraline, trazodone DVT ppx: teds, scds CODE: Full Dispo: anticipate return to SNF today Discharge Exam General- oriented x 3, not in distress, speaks in sentences with no effort or accessory muscle use Eyes- anicteric Neck- no JVD Lungs- clear breath sounds bilaterally, no rales/wheezes Heart- normal rate, regular rhythm; no murmurs Abdomen- normal bowel sounds, nondistended, soft, nontender Extremities- no pretibial edema, no calf tenderness Neuro- alert, oriented x 3; no gross focal neurologic deficits Skin- warm & dry Updated Medication List Medication Instructions Recorded Confirmed Type Saccharomyces boulardii 250 mg 250 mg PO BID 07/03/20 05/07/22 History capsule (Florastor) acetaminophen 325 mg tablet 650 mg PO Q6H PRN Pain 07/03/20 05/07/22 History amantadine HCl 100 mg tablet 100 mg PO BID 07/03/20 05/07/22 History aripiprazole 10 mg tablet (Abilify) 5 mg PO QAM 07/03/20 05/07/22 History atorvastatin 40 mg tablet 60 mg PO HS 07/03/20 05/07/22 History hydrocodone 5 mg-acetaminophen 325 1 tab PO Q12 PRN Pain 07/03/20 05/07/22 History mg tablet magnesium hydroxide 400 mg/5 mL 30 ml PO DAILY PRN Constipation 07/03/20 05/07/22 History oral suspension (Milk of Magnesia) bisacodyl 10 mg rectal suppository 10 mg MN DAILY PRN Constipation 05/07/22 05/07/22 History docusate sodium 100 mg capsule 100 mg PO DAILY 05/07/22 05/07/22 History duloxetine 60 mg capsule,delayed 60 mg PO DAILY 05/07/22 05/07/22 History release ergocalciferol (vitamin D2) 50,000 50,000 unit PO Q7D 05/07/22 05/07/22 History unit tablet gabapentin 100 mg capsule 100 mg PO TID 05/07/22 05/07/22 History levothyroxine 25 mcg tablet 25 mcg PO DAILY 05/07/22 05/07/22 History lorazepam 0.5 mg tablet 0.5 mg PO BID 05/07/22 05/07/22 History ondansetron 4 mg disintegrating 4 mg PO Q6H PRN Nausea And Vomiting 05/07/22 05/07/22 History tablet potassium chloride 20 mEq 20 meq PO BID 05/07/22 05/07/22 History tablet,extended release sertraline 100 mg tablet 100 mg PO DAILY 05/07/22 05/07/22 History sodium phosphates 19 gram-7 118 ml MN DAILY PRN Constipation 05/07/22 05/07/22 History gram/118 mL enema trazodone 50 mg tablet 50 mg PO HS 05/07/22 05/07/22 History loperamide 2 mg capsule 2 mg PO Q3H PRN loose stool 7 days 05/16/22 Rx #10 caps Hospital Stay Data Consultations 05/07/22 13:56 ED Decision to Admit Stat 05/07/22 15:51 Consult Dairy Consultant Routine 05/07/22 15:57 Consult General Surgery Routine Diagnostic Imagining Performed 05/07/22 13:40 CT Abd and Pelvis [CT abd pelvis wo con] Stat CT chest diagnostic wo con Stat CT head/brain wo con Stat Pending Results Patient Have Any Pending Studies at Discharge: No Discharge Instructions Given to Patient (Per Discharging Provider) Monitor for diarrhea. PRN Imodium. Please refer to hospital discharge summary. Total Time Total Time Spent Total Time Spent (In Minutes): > 30 minutes
== END 2022-05-16 14:59 | DRG 871 ==
LOC: ED 10:48 → 1E 13:25 → SUATTDRO 13:52 → 1E 13:52 → 2W 05-09 19:36